=== PATIENT | female | born 1975 | race Caucasian/White ===

== ENCOUNTER 2016-09-05 12:18 | Emergency (ER) | payer BC ==
[~2016-09-05] VITALS: Ht 175.3 cm; Wt 65.7 kg
[~2016-09-05 12:18] MED LIST: ALPR0.25 PO; ASPCH81X PO; ESCI1TAB10 PO; VAREPAK PO
[2016-09-05 12:20] VITALS: TEMP 36.8; Ht 175.3 cm; Wt 65.7 kg
[2016-09-05] MEDS ORDERED: LIDOCAINE HCL 2% VISC SOLN 20 ML UDC PO STA (13:06)
[2016-09-05] MEDS ORDERED: ALUMINUM/MAGNESIUM SUSP 30 ML UDC PO STA (13:06)
[2016-09-05] MEDS ORDERED: ASPIRIN 81 MG CHEW PO STA (13:12)
[2016-09-05 13:16] LABS: BASO % 0.4 %; BASO ABS # 0.03 K/uL (0-0.2); COMPLETE YES; EOS % 3.5 %; HEMATOCRIT 36.8 % (37-47); IG% 0.1 %; LYMPH % 24.3 %; LYMPH ABS # 1.95 K/uL (1.2-3.4); MEAN CORPUSCULAR HEMOGLOBIN 29.2 pg (25-34); MEAN PLATELET VOLUME 10.1 fL (7.4-10.4); MONO % 8.2 %; NEUT % 63.5 %; PLATELET COUNT 306 K/uL (130-400); RED BLOOD COUNT 4.28 M/uL (4.2-5.4); WHITE BLOOD COUNT 8.02 K/uL (4.8-10.8)
[2016-09-05 13:29] LABS: BUN/CREATININE RATIO 14.8 (10-20); CALCIUM 8.5 mg/dl (8.5-10.1); CREATININE 0.75 mg/dl (0.60-1.20); MAGNESIUM 2.2 mg/dl (1.8-2.4); POTASSIUM 3.5 mmol/L (3.5-5.1)
[2016-09-05 13:34] LABS: CKMB/CK RATIO 1.1 (0-3.0)
--- NOTE | 2016-09-05 13:41 | DIAGNOSTIC IMAGING REPORT ---
CHEST ONE VIEW PORTABLE CLINICAL HISTORY: CP dyspnea COMPARISON STUDY: 02/19/2015 FINDINGS: The bones soft tissues and hemidiaphragms are normal. The cardiomediastinal silhouette is normal. The lungs are clear. The pulmonary vasculature is normal. Slight interstitial prominence in both lung bases suggesting mild bronchitis. IMPRESSION: Mild interstitial basilar bronchitis. No focal infiltrate. The above report was generated using voice recognition software. It may contain grammatical, syntax or spelling errors. Electronically signed by: Darren Viramontes M.D. 09/05/2016 1:40 PM Dictated Date/Time: 09/05/2016 1:39 PM
--- NOTE | 2016-09-05 14:01 | EMERGENCY ROOM VISIT NOTE ---
History Report prepared by Geoffrey: Nicky Jj Under the Supervision of: Dr. Charisse Hoffmann M.D. First contact with patient: 12:32 Chief Complaint: CARDIAC ASSESSMENT Stated Complaint: HEAVY CHEST Nursing Triage Summary: Pt reports midsternal chest pressure that is also between shoulder blades sx x2 weeks but worse in the past 2 days History of Present Illness The patient is a 40 year old female who presents to the Emergency Room for a cardiac assessment of symptoms that started 3 weeks ago. The pain is worse when she lies down but it does seem to be affected with exertion. The patient states that she is experiencing constant chest heaviness that has steadily worsened over the last couple of days. She states that it feels like "something is sitting on her chest." The patient denies any pain with pressing on her chest and any pain with moving her arms. The patient is attempting to stop smoking but she had a few cigarettes today. She states that smoking cigarettes seems to make the pressure worse. The patient is on Chantix which she started 6 months ago. The patient denies any recent trips as well as lower extremity edema. The patient adds that she has a history of RA but since she has cut bread out of her diet she has not experienced any symptoms from it. The patient did not take any aspirin today. Source of History: patient Onset: 3 weeks ago Position: chest Quality: other (cardiac assessment) Timing: constant Modifying Factors (Worsening): other (lying down, smoking cigarettes) Associated Symptoms: + chest pain (heaviness) Note: no lower extremity edema Review of Systems See HPI for pertinent positives & negatives. A total of 10 systems reviewed and were otherwise negative. Past Medical & Surgical Medical Problems: (1) Prev Delivry W/ Or W/O Ment Antepart Cond (2) Sprain Of Neck Family History Diabetes mellitus FH: heart disease Hypertension Seizures Social History Smoking Status: Current Every Day Smoker Alcohol Use: occasionally Marital Status: Housing Status: lives with family Occupation Status: employed Current/Historical Medications Scheduled Omeprazole (Prilosec), 20 MG PO DAILY Varenicline Tartrate (Chantix Continuing Month), 1 MG PO DAILY Scheduled PRN Hydroxyzine HCl (Hydroxyzine HCl), 25-50 MG PO DAILY PRN for Anxiety Allergies Coded Allergies: Aloe (Verified Allergy, Mild, RASH, 12/23/10) Physical Exam Vital Signs Date Time Temp Pulse Resp B/P (MAP) Pulse Ox O2 Delivery O2 Flow Rate FiO2 09/05/16 15:10 71 16 104/61 99 09/05/16 13:40 69 15 114/73 100 Room Air 09/05/16 12:39 93 09/05/16 12:20 36.8 94 18 137/98 99 Room Air Physical Exam Vital signs reviewed. General: Anxious-appearing female, in no significant distress. HEENT: No scleral icterus, PERRLA, neck supple. Atraumatic. Cardiovascular: Regular rate and rhythm, no extra sounds. Pulmonary: Clear to auscultation bilaterally, normal work of breathing. Abdomen: Soft, nontender, nondistended, positive bowel sounds. Musculoskeletal: Atraumatic, no peripheral edema. Neurologic: Patient awake alert and oriented x 3, full strength in all 4 extremities. Cranial nerves 2 through 12 grossly intact. Skin: Warm, dry, no rash Medical Decision & Procedures ER Provider Diagnostic Interpretation: Radiology results as stated below per my review and radiologist interpretation: CHEST ONE VIEW PORTABLE FINDINGS: The bones soft tissues and hemidiaphragms are normal. The cardiomediastinal silhouette is normal. The lungs are clear. The pulmonary vasculature is normal. Slight interstitial prominence in both lung bases suggesting mild bronchitis. IMPRESSION: Mild interstitial basilar bronchitis. No focal infiltrate. The above report was generated using voice recognition software. It may contain grammatical, syntax or spelling errors. Electronically signed by: Darren Viramontes M.D. 09/05/2016 1:40 PM Dictated Date/Time: 09/05/2016 1:39 PM Laboratory Results 09/05/16 12:30 Red Blood Count 4.28, Mean Corpuscular Volume 86.0, Mean Corpuscular Hemoglobin 29.2, Mean Corpuscular Hemoglobin Concent 34.0, Mean Platelet Volume 10.1, Neutrophils (%) (Auto) 63.5, Lymphocytes (%) (Auto) 24.3, Monocytes (%) (Auto) 8.2, Eosinophils (%) (Auto) 3.5, Basophils (%) (Auto) 0.4, Neutrophils # (Auto) 5.09, Lymphocytes # (Auto) 1.95, Monocytes # (Auto) 0.66, Eosinophils # (Auto) 0.28, Basophils # (Auto) 0.03 09/05/16 12:30 Test 09/05/16 12:30 09/05/16 14:17 White Blood Count 8.02 K/uL (4.8-10.8) Red Blood Count 4.28 M/uL (4.2-5.4) Hemoglobin 12.5 g/dL (12.0-16.0) Hematocrit 36.8 % (37-47) Mean Corpuscular Volume 86.0 fL (80-100) Mean Corpuscular Hemoglobin 29.2 pg (25-34) Mean Corpuscular Hemoglobin Concent 34.0 g/dl (32-36) Platelet Count 306 K/uL (130-400) Mean Platelet Volume 10.1 fL (7.4-10.4) Neutrophils (%) (Auto) 63.5 % Lymphocytes (%) (Auto) 24.3 % Monocytes (%) (Auto) 8.2 % Eosinophils (%) (Auto) 3.5 % Basophils (%) (Auto) 0.4 % Neutrophils # (Auto) 5.09 K/uL (1.4-6.5) Lymphocytes # (Auto) 1.95 K/uL (1.2-3.4) Monocytes # (Auto) 0.66 K/uL (0.11-0.59) Eosinophils # (Auto) 0.28 K/uL (0-0.5) Basophils # (Auto) 0.03 K/uL (0-0.2) RDW Standard Deviation 41.9 fL (36.4-46.3) RDW Coefficient of Variation 13.2 % (11.5-14.5) Immature Granulocyte % (Auto) 0.1 % Immature Granulocyte # (Auto) 0.01 K/uL (0.00-0.02) Anion Gap 9.0 mmol/L (3-11) Est Creatinine Clear Calc Drug Dose 103.4 ml/min Estimated GFR () 115.6 Estimated GFR (Non- 99.7 BUN/Creatinine Ratio 14.8 (10-20) Calcium Level 8.5 mg/dl (8.5-10.1) Magnesium Level 2.2 mg/dl (1.8-2.4) Total Bilirubin 0.4 mg/dl (0.2-1) Direct Bilirubin 0.1 mg/dl (0-0.2) Aspartate Amino Transf (AST/SGOT) 18 U/L (15-37) Alanine Aminotransferase (ALT/SGPT) 27 U/L (12-78) Alkaline Phosphatase 58 U/L (45-117) Total Creatine Kinase 120 U/L (26-192) Creatine Kinase MB 1.3 ng/ml (0.5-3.6) Creatine Kinase MB Ratio 1.1 (0-3.0) Total Protein 7.3 gm/dl (6.4-8.2) Albumin 3.7 gm/dl (3.4-5.0) Bedside D-Dimer 214 ng/mlFEU (0-450) Bedside Troponin I < 0.030 ng/ml (0-0.045) Laboratory results per my review. Medications Administered Medications (Trade) Dose Ordered Sig/Tracie Route Start Time Stop Time Status Last Admin Dose Admin Lidocaine HCl (Viscous Lidocaine 2% Soln) 10 ml NOW STAT PO 09/05/16 13:06 09/05/16 13:09 DC 09/05/16 13:22 10 ML Al Hydroxide/Mg Hydroxide (Maalox Susp) 30 ml NOW STAT PO 09/05/16 13:06 09/05/16 13:09 DC 09/05/16 13:22 30 ML Aspirin (Aspirin Chew) 324 mg NOW STAT PO 09/05/16 13:12 09/05/16 13:14 DC 09/05/16 13:21 324 MG Albuterol (Ventolin Hfa Inhaler) 2 puffs NOW ONCE INH 09/05/16 14:45 09/05/16 14:46 DC 09/05/16 15:04 2 PUFFS ECG Indication: chest pain Rate (beats per minute): 84 Rhythm: normal sinus Findings: no acute ischemic change, no ectopy ED Course 1259: Past medical records reviewed. The patient was evaluated in room B5. A complete history and physical examination was performed. 1306: Ordered Maalox Susp 30 ml PO, Lidocaine HCl 10 ml PO 1312: Ordered Aspirin 324 mg PO 1415: I reassessed the patient. She is resting comfortably. We are waiting on the results of her d-dimer and troponin. 1442: Upon reevaluation, the patient appeared to have improvement of her symptoms. I discussed findings with her. She verbalized agreement of the treatment plan. She was discharged home. Medical Decision Differential diagnoses includes acute coronary syndrome, pulmonary embolus, aortic dissection, musculoskeletal pain, pneumonia, pleural effusion, pneumothorax, gastritis, peptic ulcer disease. Medication Reconciliation: I attest that I have personally reviewed the patient' s current medication list. Blood Pressure Screening: Patient was found to have normal blood pressure on screening and does not require follow-up. This patient was evaluated and appeared to be in no significant distress. Physical examination is fairly unrevealing. EKG reveals no evidence of acute ischemia. Laboratory work reveals a normal d-dimer and troponin. I suspect the patient is suffering from a gastritis or GERD. She was given a GI cocktail with some improvement. She complains of a difficulty in obtaining air however she is oxygenating well and has a normal respiratory rate. Patient was given an albuterol inhaler and asked to use 2 puffs every 4 hours as needed. She will continue with her efforts at smoking cessation. The patient will follow- up with her primary care physician this week and return to the ER for worsening of symptoms or any medical concerns. Impression Primary Impression: GERD (gastroesophageal reflux disease) Additional Impression: Reactive airway disease Scribe Attestation The scribe's documentation has been prepared under my direction and personally reviewed by me in its entirety. I confirm that the note above accurately reflects all work, treatment, procedures, and medical decision making performed by me. Departure Information Dispostion Home / Self-Care Prescriptions Omeprazole (PRILOSEC) 20 Mg Capcr 20 MG PO DAILY, #30 CAP Prov: Charisse Hoffmann M.D. 09/05/16 Referrals Kenisha Zepeda DO (PCP) Forms IMPORTANT VISIT INFORMATION Patient Instructions GERD, My [facility] Additional Instructions Diagnosis: GERD, reactive airway disease Albuterol 2 puffs every 4 hours as needed for cough, wheeze. Prilosec 20 mg daily for 4 weeks. Pepcid 20 mg twice daily as needed. Drink plenty of fluids. Avoid alcohol, coffee, soda, greasy and spicy foods. Follow up with your doctor this week for reevaluation. Return to the ED for worsening of symptoms or any medical concerns. Problem Qualifiers Primary Impression: GERD (gastroesophageal reflux disease) Esophagitis presence: esophagitis presence not specified Qualified Codes: K21.9 - Gastro-esophageal reflux disease without esophagitis Additional Impression: Reactive airway disease Asthma severity: mild persistent Asthma complication type: uncomplicated Qualified Codes: J45.30 - Mild persistent asthma, uncomplicated
[2016-09-05] MEDS ORDERED: VARE1PAK10 PO (14:19)
[2016-09-05] MEDS ORDERED: ATR25 PO (14:19)
[2016-09-05 14:37] LABS: POINT OF CARE TROPONIN I < 0.030 ng/ml (0-0.045)
[2016-09-05] MEDS ORDERED: PRLSR20 PO (14:42)
[2016-09-05] MEDS ORDERED: ALBUTEROL HFA 8 GM INHALER INH ONE (14:45)
[2016-09-05 15:10] VITALS: BP 104/61; PULSE 71; O2SAT 99
== END 2016-09-05 15:09 | disposition home or self-care (01) ==
LOC: C.EDB 12:19
DX: K21.9 Gastro-esophageal reflux disease without esophagitis (principal); J45.30 Mild persistent asthma, uncomplicated; Z83.3 Family history of diabetes mellitus; Z82.49 Family history of ischemic heart disease and other diseases of the circulatory system; Z82.0 Family history of epilepsy and other diseases of the nervous system; F17.200 Nicotine dependence, unspecified, uncomplicated

== ENCOUNTER → 2016-11-03 | Outpatient (CLI) | payer BC ==
[~2016-11-03] MED LIST changes: -ALPR0.25 PO; -ASPCH81X PO; +ATR25 PO; -ESCI1TAB10 PO; +PRLSR20 PO; +VARE1PAK10 PO; -VAREPAK PO
--- NOTE | 2016-11-03 14:19 | MAMMOGRAPHY REPORT ---
BILATERAL DIGITAL DIAGNOSTIC MAMMOGRAM TOMOSYNTHESIS WITH CAD AND TARGETED LEFT ULTRASOUND: 11/03/2016 CLINICAL HISTORY: The patient reports left inferior breast pain for a few months. She also reports m ild diffuse left breast fullness. She denies any palpable lumps, skin changes, or other complaints. TECHNIQUE: Breast tomosynthesis in addition to standard 2D mammography was performed. Current study was also evaluated with a Computer Aided Detection (CAD) system. Bilateral CC and MLO 2-D and tomosy nthesis images were obtained. COMPARISON: Prior outside mammograms dated 12/30/2015 from [facility]. BREAST COMPOSITION: The tissue of both breasts is heterogeneously dense, which may obscure small mas ses. FINDINGS: There are no suspicious masses, calcifications, or areas of architectural distortion noted in either breast. There has been no significant interval change compared to prior exams. Targeted ultrasound was performed of the area of pain pointed out by the patient in the left lower ou ter quadrant. Sonographically normal tissue is seen in this region, without evidence of a mass or ot her suspicious sonographic abnormality. IMPRESSION: ACR BI-RADS CATEGORY 1: NEGATIVE, TARGETED ULTRASOUND ACR BI-RADS CATEGORY 1: NEGATIVE No suspicious mammographic or sonographic abnormality to explain left breast pain. There is no mammog raphic or targeted sonographic evidence of malignancy. Recommend clinical follow-up, and recommend r outine bilateral screening mammograms in one year. The patient has been verbally notified of the results. Approximately 10% of breast cancers are not detected with mammography. A negative mammographic report should not delay biopsy if a clinically suggestive mass is present. Stacy Wilkes M.D. ah/:11/03/2016 10:26:18 Sex Worker Or Escort: Kristin DIXON(R)(M), [facility] letter sent: Normal 1/2 BI-RADS Code: ACR BI-RADS Category 1: Negative Ultrasound BI-RADS: ACR BI-RADS Category 1: Negative
== END | disposition home or self-care (01) ==
LOC: C.MAMM 09:58
PROVIDERS: ATTEND Family Medicine
DX: N64.4 Mastodynia (principal)

== ENCOUNTER → 2016-11-09 | Outpatient (CLI) | payer BC ==
--- NOTE | 2016-11-09 09:30 | DIAGNOSTIC IMAGING REPORT ---
RIGHT FOOT MIN 3 VIEWS ROUTINE CLINICAL HISTORY: 41 years-old Female presenting with iritis, polyarthralgia. TECHNIQUE: Frontal, oblique, and lateral views of the right foot were obtained. COMPARISON: None. FINDINGS: Degenerative changes with joint space loss, osteophytosis and subchondral sclerosis noted at the first metatarsophalangeal joint. No other degenerative change. No acute fracture or malalignment. Accessory navicular noted. No soft tissue swelling. IMPRESSION: Degenerative changes of the first metatarsophalangeal joint characteristic of osteoarthritis. Electronically signed by: Michael Fraser M.D. 11/09/2016 9:29 AM Dictated Date/Time: 11/09/2016 9:27 AM
--- NOTE | 2016-11-09 09:34 | DIAGNOSTIC IMAGING REPORT ---
RIGHT KNEE 1 OR 2 VIEWS ROUTINE CLINICAL HISTORY: H20.9 GsmkezA13.50 [id number] Right pain COMPARISON: None. DISCUSSION: The bones and joint spaces appear intact. There is no evidence of fracture, dislocation or bony disease. There is no evidence for soft tissue swelling. IMPRESSION: Negative study. The above report was generated using voice recognition software. It may contain grammatical, syntax or spelling errors. Electronically signed by: Darren Viramontes M.D. 11/09/2016 9:33 AM Dictated Date/Time: 11/09/2016 9:33 AM
--- NOTE | 2016-11-09 09:34 | DIAGNOSTIC IMAGING REPORT ---
LEFT KNEE 1 OR 2 VIEWS ROUTINE CLINICAL HISTORY: H20.9 ZlfrbcQ74.50 [id number] pain. COMPARISON: None. DISCUSSION: The bones and joint spaces appear intact. There is no evidence of fracture, dislocation or bony disease. There is no evidence for soft tissue swelling. IMPRESSION: Negative study. The above report was generated using voice recognition software. It may contain grammatical, syntax or spelling errors. Electronically signed by: Darren Viramontes M.D. 11/09/2016 9:33 AM Dictated Date/Time: 11/09/2016 9:32 AM
--- NOTE | 2016-11-09 09:35 | DIAGNOSTIC IMAGING REPORT ---
LEFT HAND MIN 3 VIEWS ROUTINE CLINICAL HISTORY: H20.9 NfoutoT80.50 [id number] pain COMPARISON: None. DISCUSSION: The bones and joint spaces appear intact. There is no evidence of fracture, dislocation or bony disease. There is no evidence for soft tissue swelling. IMPRESSION: Negative study. The above report was generated using voice recognition software. It may contain grammatical, syntax or spelling errors. Electronically signed by: Darren Viramontes M.D. 11/09/2016 9:34 AM Dictated Date/Time: 11/09/2016 9:33 AM
--- NOTE | 2016-11-09 09:36 | DIAGNOSTIC IMAGING REPORT ---
RIGHT HAND MIN 3 VIEWS ROUTINE CLINICAL HISTORY: H20.9 PdialtS51.50 [id number] Right pain COMPARISON: None. DISCUSSION: The bones and joint spaces appear intact. There is no evidence of fracture, dislocation or bony disease. There is no evidence for soft tissue swelling. IMPRESSION: Negative study. The above report was generated using voice recognition software. It may contain grammatical, syntax or spelling errors. Electronically signed by: Darren Viramontes M.D. 11/09/2016 9:35 AM Dictated Date/Time: 11/09/2016 9:34 AM
[2016-11-09 10:29] LABS: RHEUMATOID FACTOR < 10.0 U/mL (0-15); TOTAL IRON BINDING CAPACITY 420 mcg/dl (250-450); URIC ACID 4.1 mg/dl (2.6-7.2)
[2016-11-14 10:17] LABS: ANTI-CENTROMERE AB <1.0 NEG AI (<1.0 NEG); ANTI-SS-A <1.0 NEG AI (<1.0 NEG); ANTI-SS-B <1.0 NEG AI (<1.0 NEG); DNA ds CRITHIDIA NEGATIVE (NEGATIVE); PARVOVIRUS IgG INDEX 0.3 (<0.9); PARVOVIRUS IgM INDEX 0.2 (<0.9); Sm Antibody <1.0 NEG AI (<1.0 NEG)
== END | disposition home or self-care (01) ==
LOC: C.RAD1850 08:52
PROVIDERS: ATTEND Internal Medicine Rheumatology
DX: H20.9 Unspecified iridocyclitis (principal); M25.50 Pain in unspecified joint; M10.9 Gout, unspecified; M19.071 Primary osteoarthritis, right ankle and foot

== ENCOUNTER 2023-08-11 07:42 | Observation (INO) ==
--- NOTE | 2023-08-11 08:31 | Emergency Department Note ---
Impression & Plan Diverticulitis ED Provider Note NAME: JAMES MASTERS AGE: 47 SEX: F : 1975 ARRIVES VIA: Walk-In INFORMANT: Patient, ED PROVIDER(S): Annette Cuevas MD CHIEF COMPLAINT: Diverticulitis HPI: This is a 47-year-old female presenting for left lower abdominal pain. patient notes she has a loss and history of diverticulitis over the past 10 years. She has never had antibiotic failure with or antibiotic previously until this round. She notes that she has completed 3 rounds of oral antibiotics including 2 rounds of amoxicillin and then Cipro/Flagyl recently. She notes she last finished her course about 2 days ago without the resolution of pain and not worsening pain. There is mild similar to previous episodes of diverticulitis. She had diagnosed diverticulitis about 10 to 14 days ago at outside hospital. She reports no vomiting, diarrhea, slight nausea as noted above. No significant bloody stools. ROS: See above HPI for pertinent positives & negatives. A total of 10 systems reviewed and were otherwise negative. PHYSICAL EXAMINATION: General: resting comfortably in no acute distress Head: Normocephalic and atraumatic Eyes: Normal inspection, extraocular muscles intact Ear, nose, throat: Normal external exam Neck: Normal range of motion Respiratory: lungs clear to auscultation bilaterally Cardiovascular: Regular rate/rhythm, no murmur GI: soft, nontender, no guarding or rebound Extremities: nontender, moves all extremities Neuro: The patient awake and alert, appropriately conversive, no focal deficits, symmetric faces Skin: Warm, dry, and intact MEDICAL DECISION MAKING: This is a pleasant 47-year-old female sent in for left lower abdominal pain. Patient is longstanding history of diverticulitis. Will do CT to assess for any clinical change in her diverticulitis or any new pathology. Will do basic blood work as well. Will give specimen coverage -CT imaging does show signs of acute diverticulitis. -Blood work is reviewed showing no significant abnormalities Differential diagnosis: Diverticulitis, SBO, pancreatitis, appendicitis ER treatment provided: See below Diagnostics interpreted by me: ECG: None Cardiac Monitoring: An order was placed for continuous cardiac monitoring. The monitor shows a rate of 73 with sinus rhythm. Laboratory studies: As stated above and show below. Imaging studies: See below. Past Med/Surg History Problem List (Updated 08/12/23 @ 14:36 by Annette Cuevas MD) Diverticulitis (Acute) Diverticulitis Encounter for pre-operative examination GERD (gastroesophageal reflux disease) (Acute) Headache (Acute) Hyperventilation (Acute) Hyperventilation syndrome (Acute) Hyperventilation syndrome (Acute) Hypokalemia (Acute) Palpitations (Acute) Reactive airway disease (Acute) Medical History (Updated 08/12/23 @ 14:36 by Annette Cuevas MD) Osteoarthritis Gout Anxiety Migraine Reactive airway disease Surgical History H/O right knee surgery BENIGN TUMOR REMOVED History of section X2 History of dilatation and curettage History of tooth extraction WISDOM TEETH Family History Brother Family history of diabetes mellitus Grandmother Family history of diabetes mellitus MATERNAL AND PATERNAL Social History Smoking Status: Current every day smoker Tobacco Type: E-cigarettes / Vaping Cigarettes Per Day: 10 A DAY; Second Hand Exposure: Yes; Do You Dip or Chew Tobacco: No; Hx Alcohol Use: Yes Alcohol type: hard liquor Hx Substance Use: No Preferred Language: Slovenian Communication Ability: Effective Test Development Engineer Required: No Beliefs That Will Affect Care: None Current Living Situation: Spouse Current Living Situation Comment: Lives at home with and 2 children Feels Safe at Home: Yes Assistive Devices: Contacts and Glasses Allergies Allergies Allergy/AdvReac Type Severity Reaction Status Date / Time aloe Allergy Mild RASH Verified 03/01/23 15:20 Home Meds Home Medications Medication Instructions Recorded Confirmed multivitamin 1 tab PO QAM 11/06/17 08/11/23 ibuprofen 200 mg tablet (Advil) 400 mg PO Q6H PRN Pain 03/01/23 08/11/23 melatonin 3 mg tablet 5 mg PO HS PRN Sleep 03/01/23 08/11/23 Tylenol 1 - 2 tab PO UD PRN Pain 08/11/23 08/11/23 alprazolam 0.5 mg tablet 0.5 mg PO UD PRN travel 08/11/23 08/11/23 aspirin 1 - 2 tab PO UD PRN Pain 08/11/23 08/11/23 Results & Data (ED) Vital Signs Vital Signs - 24 hr 08/11/23 07:48 Temperature 36.5 C Temperature Source Temporal Artery Scan Pulse Rate 86 Respiratory Rate 18 Respiratory Effort / Characteristics Non-Labored Spontaneous Respiratory Depth Normal Blood Pressure 117/82 Blood Pressure Mean 93 Pulse Oximetry 98 Oxygen Delivery Method Room Air Sepsis Recent Fever Within 48 Hours No Sepsis New/Unexplained Change in Mental Status No Sepsis Action Taken by Nursing No Action Required Laboratory Data 08/12/23 07:43 08/12/23 07:43 Lab Results 08/11/23 08/11/23 Range/Units 08:15 09:19 WBC 6.54 (4.8-10.8) K/ul RBC 4.52 (4.20-5.40) M/uL Hgb 12.8 (12.0-16.0) g/dl Hct 38.8 (37.0-47.0) % MCV 85.8 (80.0-100.0) fL MCH 28.3 (25.0-34.0) pg MCHC 33.0 (32.0-36.0) g/dL RDW Std Deviation 40.1 (36.4-46.3) fL RDW Coeff of Daniela 12.8 (11.5-14.5) % Plt Count 277 (130-400) K/uL MPV 10.5 (9.4-12.4) fL Immature Gran % (Auto) 0.2 % Neut % (Auto) 64.3 % Lymph % (Auto) 25.1 % [place] % (Auto) 7.0 % Eos % (Auto) 2.8 % Baso % (Auto) 0.6 % Neut # (Auto) 4.21 (1.40-6.50) K/uL Lymph # (Auto) 1.64 (1.20-3.40) K/uL [place] # (Auto) 0.46 (0.11-0.59) K/uL Eos # (Auto) 0.18 (0.00-0.50) K/uL Baso # (Auto) 0.04 (0.00-0.20) K/uL Immature Gran # (Auto) 0.01 (0.01-0.20) K/uL Platelet Estimate Normal (Normal) Sodium TNP 135 L Potassium TNP 3.7 Chloride 105 (98-107) mmol/L Carbon Dioxide 24 (21-32) mmol/L Anion Gap TNP BUN 12 (6-23) mg/dl Creatinine 0.64 (0.6-1.2) mg/dl Est Cr Clr Drug Dosing 109.6 ml/min Est GFR ( Amer) 123.2 ml/min Est GFR (Non-Af Amer) 106.3 ml/min BUN/Creatinine Ratio 18.8 (10-20) Glucose 99 (70-99(Fasting)) mg/dl Calcium 9.3 (8.6-10.3) mg/dl Total Bilirubin 0.3 (0.2-1.0) mg/dl Direct Bilirubin TNP 0.1 AST TNP 17 ALT 21 (7-52) U/L Alkaline Phosphatase 48 (34-104) U/L Total Protein 7.2 (6.0-8.3) gm/dl Albumin 4.2 (3.4-5.0) gm/dl Lipase 32 (11-82) U/L Administered Medications Fluticasone Propionate (Fluticasone Propionate Na Spr 16 Gm Btl) 1 sprays NA DAILY BART Stop: 09/10/23 11:44 Last Admin: 08/12/23 08:25 Dose: 1 sprays Documented By: Admin: 08/11/23 13:00 Dose: 1 sprays Documented By: COLLEEN Piperacillin Sod/Tazobactam (Sod 4.5 gm/ Dextrose) 100 mls @ 25 mls/hr IV Q8H BART; Protocol Stop: 08/21/23 15:59 Last Infusion: 08/12/23 12:20 Dose: Infused Documented By: Admin: 08/12/23 08:20 Dose: 25 mls/hr Documented By: Infusion: 08/12/23 04:05 Dose: Infused Documented By: Admin: 08/12/23 00:02 Dose: 25 mls/hr Documented By: Infusion: 08/11/23 21:35 Dose: Infused Documented By: Admin: 08/11/23 17:10 Dose: 25 mls/hr Documented By: YONNY Lactobacillus Acidophilus (Advanced Probiotic 625 Mg Capsule) 1,250 mg PO DAILY BART Stop: 09/10/23 11:44 Last Admin: 08/12/23 08:26 Dose: 1,250 mg Documented By: Admin: 08/11/23 13:00 Dose: 1,250 mg Documented By: COLLEEN Melatonin (Melatonin 3 Mg Tab) 3 mg PO HS PRN PRN Reason: Sleep Stop: 09/10/23 20:04 Last Admin: 08/11/23 21:35 Dose: 3 mg Documented By: PRUDENCIO Discontinued Medications Piperacillin Sod/Tazobactam Sod (Zosyn) 4.5 gm in 100 mls @ 200 mls/hr IV NOW ONE Stop: 08/11/23 10:32 Last Infusion: 08/11/23 11:10 Dose: Infused Documented By: Admin: 08/11/23 10:40 Dose: 200 mls/hr Documented By: COLLEEN Lactated Ringer's (Lr) 1,000 mls @ 100 mls/hr IV .Q10H BART Stop: 08/12/23 09:33 Last Infusion: 08/12/23 10:01 Dose: Infused Documented By: Admin: 08/12/23 00:01 Dose: 100 mls/hr Documented By: Infusion: 08/12/23 00:01 Dose: Infused Documented By: Admin: 08/11/23 14:17 Dose: 100 mls/hr Documented By: COLLEEN Ioversol (Optiray 320 100ml) 94 ml IV ONCE ONE Stop: 08/11/23 09:04 Last Admin: 08/11/23 09:04 Dose: 94 ml Documented By: EDK Discharge Plan Visit Data Chief Complaint: Abdominal Pain Stated Complaint: abd pain ED Provider: Annette Cuevas Discharge Problem: Diverticulitis Patient Disposition: Admitted As Inpatient Discharge Instructions Interventions: ED Discharge Assessment Last Done: 08/11/23 13:35
[2023-08-11 08:55] LABS: Alanine Aminotransferase 21 U/L (7-52); Albumin Level 4.2 gm/dl (3.4-5.0); Alkaline Phosphatase 48 U/L (34-104); BUN Creatinine Ratio 18.8 (10-20); Bilirubin,Total 0.3 mg/dl (0.2-1.0); Blood Urea Nitrogen 12 mg/dl (6-23); Calcium 9.3 mg/dl (8.6-10.3); Carbon Dioxide 24 mmol/L (21-32); Chloride 105 mmol/L (98-107); Creatinine Clr Calc Pharmacy 109.6 ml/min; Est GFR (African American) 123.2 ml/min; Est GFR (Non-African American) 106.3 ml/min; Glucose 99 mg/dl (70-99(Fasting)); Lipase 32 U/L (11-82); Total Protein 7.2 gm/dl (6.0-8.3)
[2023-08-11] MEDS: OPTIRAY 320 100ml IV ONE (09:04)
[2023-08-11 09:18] LABS: Hematocrit (blood only) 38.8 % (37.0-47.0); Hemoglobin 12.8 g/dl (12.0-16.0); Mean Corpuscular Hemoglobin 28.3 pg (25.0-34.0); Mean Corpuscular Volume 85.8 fL (80.0-100.0); Mean Platelet Volume 10.5 fL (9.4-12.4); Platelet Count 277 K/uL (130-400); RDW Coefficient of Variation 12.8 % (11.5-14.5); RDW Standard Deviation 40.1 fL (36.4-46.3); Red Blood Count 4.52 M/uL (4.20-5.40); White Blood Count 6.54 K/ul (4.8-10.8)
[2023-08-11 09:20] LABS: Basophils # (auto) 0.04 K/uL (0.00-0.20); Basophils % (auto) 0.6 %; Eosinophils # (auto) 0.18 K/uL (0.00-0.50); Eosinophils % (auto) 2.8 %; Immature Granulocytes # (auto) 0.01 K/uL (0.01-0.20); Immature Granulocytes % (auto) 0.2 %; Lymphocytes # (auto) 1.64 K/uL (1.20-3.40); Lymphocytes % (auto) 25.1 %; Monocytes # (auto) 0.46 K/uL (0.11-0.59); Neutrophils # (auto) 4.21 K/uL (1.40-6.50); Neutrophils % (auto) 64.3 %; Platelet Estimate Normal (Normal)
--- NOTE | 2023-08-11 09:43 | CT Scan Report ---
CT SCAN OF THE ABDOMEN AND PELVIS WITH IV CONTRAST CLINICAL HISTORY: Lower abdominal pain. COMPARISON STUDY: Abdominal CT dated 09/09/2015. TECHNIQUE: Following the IV administration of 94 cc of Optiray 320, CT scan of the abdomen and pelvi s is performed from the lung bases to the proximal femora. Images are reviewed in the axial, sagittal , and coronal planes. IV contrast was administered without complication. A dose lowering technique wa s utilized adhering to the principles of ALARA. CT DOSE: 800.39 mGy.cm FINDINGS: Lung bases: The heart is normal in size and without pericardial effusion. There is bibasilar scarring /atelectasis. A calcified granuloma is seen at the left lung base. Mucous plugging/debris is seen wit hin the right lower lobe airways. No airspace consolidation typical for pneumonia or pleural effusion is identified. Liver: The contrast-enhanced liver is normal in size, contour, and attenuation. Fatty infiltration is seen adjacent to the falciform ligament. There is no intrahepatic biliary ductal dilatation. The hep atic veins and portal veins are patent. Gallbladder: Unremarkable. Spleen: Normal in size and attenuation. Pancreas: Unremarkable. Adrenal glands: Unremarkable. Kidneys: The contrast enhanced kidneys are normal in size and without hydronephrosis. The kidneys enh ance symmetrically. Abdominal vasculature: The abdominal aorta is normal in course and caliber noting mild atheroscleroti c calcification. Bowel: There is moderate colonic diverticulosis. There is wall thickening with pericolonic inflammati on seen involving the distal descending/proximal sigmoid colon consistent with mild acute diverticuli tis. No fluid collection is seen to suggest abscess. There is no bowel obstruction. Mild fecal retent ion is noted throughout the colon. A duodenal diverticulum is noted. The appendix is well-visualized and normal. Peritoneum: There is no intraperitoneal free air or abdominal ascites. There is a fat-containing umbi lical hernia. Lymphadenopathy: None. Pelvic viscera: The bladder, uterus, and adnexa are normal as visualized noting bilateral ovarian fol licles. Dominant follicles measure up to 2.6 cm. Skeletal structures: No lytic or blastic lesions are seen. There are bilateral pars defects at L4 wit h minimal anterolisthesis, severe disc space narrowing, and endplate sclerosis at L4-L5. IMPRESSION: 1. Colonic diverticulosis with evidence of mild acute diverticulitis of the distal descending/proxima l sigmoid. 2. No intraperitoneal free air is identified and there is no fluid collection suggest abscess. 3. Additional findings as above. ACT 112: Negative or not required by law. Electronically signed by: Lowell Keen M.D. 08/11/2023 9:42 AM
[2023-08-11 09:54] LABS: Bilirubin Direct 0.1 mg/dl (0-0.2); Potassium 3.7 mmol/L (3.5-5.1)
--- NOTE | 2023-08-11 10:27 | History & Physical Report ---
Date of Service August 11, 2023 Assessment & Plan (1) Diverticulitis: (2) GERD (gastroesophageal reflux disease): Plan: Diverticulitis Abdominal Pain Failed abx Outpatient Course - Admit to med surg - Pt failed outpatient antibiotics, most recently finished course of oral cipro flagyl 2 days ago. She initially had improvement in pain, and then it returned and worsened with completion of antibiotics. Currently she is afebrile without leukocytosis. CT abd is reviewed and does show mild diverticulitis, no other acute findings. - Tolerating PO intake, will keep NPO for now - advance to clears possibly tomorrow - Pain tolerable, will use tylenol here, was using aspirin and tylenol prior to admission - Cont zosyn IV - Follow blood cultures x 2 - She has not seen GI previously, will consult them - Pt had last colonoscopy 2 years ago, had 2 polyps and were benign per her report - Continue LR at 100 ml/hr for 2 L. Urinary Frequency - Check UA with urine frequency- denies other symptoms, follow culture if appear s infected. Nicotine Vape Use Denies need for nicotine patch, vaping cessation encouraged at bedside DVT ppx: teds, scds Lines: PIV x 1 R arm CODE: FULL FEN/GI: NPO except sips and chips Dispo: From home, likely to remain in the hospital x 1-2 days A total of 75 minutes were spent with greater than 50% of that time face to face with the patient, personally reviewing all current laboratories, imaging studies, past medication reconciliation, outpatient chart review, and discussion with specialists to collaborate care for the patient with attending. Please see attending documentation for corrections and/or additions. History of Present Illness Chief Complaint: Abdominal Pain Primary Care Provider: Kenisha Zepeda DO This is a 47 yo F with PMHx of diverticulitis, with recent 2 recurrent bouts of diverticulitis. Last time was in April with Augmentin (pt states she took 2 courses of Augmentin ) and then again beginning of July of cipro & flagyl and had a CT scan 14days ago in [place] where she was visiting family. Now presents with worsening pain despite recently finishing antibiotic course 2 days ago. She denies nausea, vomiting, fever today. Pt admits to having a cough with post nasal drip, no sore throat, within the past week and a half. She had attributed this to khloe patton outside and thought it was due to such. Pt is moving her bowels, last was this morning, no blood, soft. No nausea, vomiting. Pt admits to vaping nicotine daily. Denies alcohol, no ilicit drug use, no marijuana use. Allergies Allergy/AdvReac Type Severity Reaction Status Date / Time aloe Allergy Mild RASH Verified 03/01/23 15:20 Home Medications Medication Instructions Recorded Confirmed Type multivitamin 1 tab PO QAM 11/06/17 08/11/23 History ibuprofen 200 mg tablet (Advil) 400 mg PO Q6H PRN Pain 03/01/23 08/11/23 History melatonin 3 mg tablet 5 mg PO HS PRN Sleep 03/01/23 08/11/23 History Tylenol 1 - 2 tab PO UD PRN Pain 08/11/23 08/11/23 History alprazolam 0.5 mg tablet 0.5 mg PO UD PRN travel 08/11/23 08/11/23 History aspirin 1 - 2 tab PO UD PRN Pain 08/11/23 08/11/23 History Past Med/Surg History Problem List (Updated 08/11/23 @ 10:32 by Priyanka Lomax PA-C) Diverticulitis Encounter for pre-operative examination GERD (gastroesophageal reflux disease) (Acute) Headache (Acute) Hyperventilation (Acute) Hyperventilation syndrome (Acute) Hyperventilation syndrome (Acute) Hypokalemia (Acute) Palpitations (Acute) Reactive airway disease (Acute) Medical History (Updated 08/11/23 @ 10:32 by Priyanka Lomax PA-C) Osteoarthritis Gout Anxiety Migraine Reactive airway disease Surgical History H/O right knee surgery BENIGN TUMOR REMOVED History of section X2 History of dilatation and curettage History of tooth extraction WISDOM TEETH Family History Brother Family history of diabetes mellitus Grandmother Family history of diabetes mellitus MATERNAL AND PATERNAL Social History Smoking Status: Former smoker Tobacco Type: Cigarettes Cigarettes Per Day: 10 A DAY; Second Hand Exposure: No; Do You Dip or Chew Tobacco: No; Hx Alcohol Use: Yes Alcohol type: hard liquor Hx Substance Use: No Preferred Language: Nepali Communication Ability: Effective Office Services Representative Required: No Beliefs That Will Affect Care: None Current Living Situation: Spouse and Family Feels Safe at Home: Yes Assistive Devices: Contacts and Glasses Review of Systems Review of Systems: Constitutional: No fever, sweats or chills Eyes: No diplopia, no worsening or blurred vision ENT: normal hearing, no trouble swallowing Respiratory: No cough, sputum, dyspnea at rest or on exertion Cardiovascular: No chest pain, tightness or palpitations Abdomen: No pain, nausea, vomiting, diarrhea or constipation, she is using stool softener daily. : increased urine frequency, Musculoskeletal: No joint pain, calf pain, swelling Neurologic: No weakness, numbness/tingling, or balance problems Psychiatric: No anxiety or depression Skin: No rash or itch Physical Exam Physical Exam: Please see attending addendum for physical exam. Results & Data Results & Data Vital Signs (Past 12 Hours) Vital Signs Temp Pulse Resp BP Pulse Ox O2 Del Method 08/11/23 07:48 36.5 C 86 18 117/82 98 Room Air Laboratory Results 08/11/23 08/11/23 09:19 08:15 WBC 6.54 RBC 4.52 Hgb 12.8 Hct 38.8 MCV 85.8 MCH 28.3 MCHC 33.0 RDW Std Deviation 40.1 RDW Coeff of Daniela 12.8 Plt Count 277 MPV 10.5 Immature Gran % (Auto) 0.2 Neut % (Auto) 64.3 Lymph % (Auto) 25.1 [place] % (Auto) 7.0 Eos % (Auto) 2.8 Baso % (Auto) 0.6 Neut # (Auto) 4.21 Lymph # (Auto) 1.64 [place] # (Auto) 0.46 Eos # (Auto) 0.18 Baso # (Auto) 0.04 Immature Gran # (Auto) 0.01 Platelet Estimate Normal Sodium 135 L TNP Potassium 3.7 TNP Chloride 105 Carbon Dioxide 24 Anion Gap TNP BUN 12 Creatinine 0.64 Est Cr Clr Drug Dosing 109.6 Est GFR ( Amer) 123.2 Est GFR (Non-Af Amer) 106.3 BUN/Creatinine Ratio 18.8 Glucose 99 Calcium 9.3 Total Bilirubin 0.3 Direct Bilirubin 0.1 TNP AST 17 TNP ALT 21 Alkaline Phosphatase 48 Total Protein 7.2 Albumin 4.2 Lipase 32 Diagnostic Findings Abdomen/Pelvis CT 08/11/23 07:53 CT SCAN OF THE ABDOMEN AND PELVIS WITH IV CONTRAST CLINICAL HISTORY: Lower abdominal pain. COMPARISON STUDY: Abdominal CT dated 09/09/2015. TECHNIQUE: Following the IV administration of 94 cc of Optiray 320, CT scan of the abdomen and pelvis is performed from the lung bases to the proximal femora. Images are reviewed in the axial, sagittal, and coronal planes. IV contrast was administered without complication. A dose lowering technique was utilized adhering to the principles of ALARA. CT DOSE: 800.39 mGy.cm FINDINGS: Lung bases: The heart is normal in size and without pericardial effusion. There is bibasilar scarring/atelectasis. A calcified granuloma is seen at the left lung base. Mucous plugging/debris is seen within the right lower lobe airways. No airspace consolidation typical for pneumonia or pleural effusion is identif ied. Liver: The contrast-enhanced liver is normal in size, contour, and attenuation. Fatty infiltration is seen adjacent to the falciform ligament. There is no intrahepatic biliary ductal dilatation. The hepatic veins and portal veins are patent. Gallbladder: Unremarkable. Spleen: Normal in size and attenuation. Pancreas: Unremarkable. Adrenal glands: Unremarkable. Kidneys: The contrast enhanced kidneys are normal in size and without hydronephrosis. The kidneys enhance symmetrically. Abdominal vasculature: The abdominal aorta is normal in course and caliber noting mild atherosclerotic calcification. Bowel: There is moderate colonic diverticulosis. There is wall thickening with pericolonic inflammation seen involving the distal descending/proximal sigmoid colon consistent with mild acute diverticulitis. No fluid collection is seen to suggest abscess. There is no bowel obstruction. Mild fecal retention is noted throughout the colon. A duodenal diverticulum is noted. The appendix is well- visualized and normal. Peritoneum: There is no intraperitoneal free air or abdominal ascites. There is a fat-containing umbilical hernia. Lymphadenopathy: None. Pelvic viscera: The bladder, uterus, and adnexa are normal as visualized noting bilateral ovarian follicles. Dominant follicles measure up to 2.6 cm. Skeletal structures: No lytic or blastic lesions are seen. There are bilateral pars defects at L4 with minimal anterolisthesis, severe disc space narrowing, and endplate sclerosis at L4-L5. IMPRESSION: 1. Colonic diverticulosis with evidence of mild acute diverticulitis of the distal descending/proximal sigmoid. 2. No intraperitoneal free air is identified and there is no fluid collection suggest abscess. 3. Additional findings as above. ACT 112: Negative or not required by law. Electronically signed by: Lowell Keen M.D. 08/11/2023 9:42 AM Code Status & VTE Plan Code Status Full code - discussed with pt at bedside Supervising Physician Co-Signing Physician Notes 47-year-old lady with PMH of recurrent diverticulitis presented with failure of outpatient therapy for diverticulitis management. Patient reports having 3 courses of antibiotics since May for her left lower abdominal pain, CT scan of the abdomen pelvis at admission shows mild diverticulitis. Patient reports abdominal pain, nausea, increased urinary frequency, no vomiting or fever or sore throat or new cough. Patient reports cough from postnasal drip. Patient denies chest pain or palpitation. No increased urinary frequency, denies pain and burning with passing urine. Will get urinalysis. Patient reports drinking lots of water. Patient denies being weak. Reports soft and a small bowel movement. Admitting labs reviewed, admitting imaging reviewed. Mild diverticulitis: Continue with Zosyn, probiotic. Consult GI.N.p.o., IV fluid.Pain management, nausea control. follow blood cultures. Urinary frequency: Send urine analysis. Pt agreeable to try Flonase for her pnd and cough. On exam: GENERAL: Alert and oriented x3. NAD, on RA. HEENT: No pallor, no icterus. Pupils equal, round and reactive to light. Oral mucosa moist. NECK: No JVD, no neck masses. HEART: S1 and S2 heard. Regular rate and rhythm. No murmur, no gallop. RESPIRATORY SYSTEM: Normal AP diameter. No accessory muscle use. No wheezing, no crackles. ABDOMEN: Soft, bowel sounds present, LLQ tender x mild, no distention. CENTRAL NERVOUS SYSTEM: No facial droop. Speech is clear. Obeys simple commands. Moves extremities. EXTREMITIES: No edema, no erythema seen. I have seen and examined the patient and have discussed the case with the provider above. I agree with the assessment and plan as stated.
[2023-08-11] MEDS: PIPERACILLIN/TAZOBACTAM 4.5 GM/100 ML BAG IV ONE (10:40)
--- OUTSIDE RECORDS SUMMARY | 2023-08-11 11:53 | External Medical Summary | Summary of Care ---
Author Name Unknown Organization [facility] Address [address] [place] [address] Phone [phone] Care Team Providers Care Ring Stamper Name Role Phone Kenisha Zepeda Primary Care Provider Reason for Visit * Reason Onset Date Comments Med Request 05/03/2023 Encounter Details Date Type Department Care Team (Late st Contact Info) Description 05/03/2023 Telephone General Surgery, [facility] [address] [place] [id number] Agustin Iglesias MD [address] [facility] [place] [address] Med Request Allergies Active Allergy Reactions Criticality Noted Date Comments Aloe Rash 05/10/2012 Prednisone 08/10/2020 Heightened anxiety. SOB and palpitations. documented as of this encounter (statuses as of 07/26/2023) Medications Medication Sig Dispensed Refills Start Date End Date Status MULTIVITAMIN/MINERALS 27-1 MG PO CAPS twice daily Active diphenhydrAMINE HCl 25 MG Oral Capsule (Benadryl) Take 1 Capsule by mouth every 6 hours as needed for Itching (allergy symptoms). Takes a few times per week Active Melatonin 3 MG Oral Tablet 3 Tablets. 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 08/20/2015 09/21/2015 documented as of this encounter (statuses as of 07/26/2023) Immunizations Name Administration Dates Next Due COVID-19 mRNA, LNP-s, No Pre serve, 2-Dose Series (Moderna) 04/17/2020,03/20/2020 COVID-19 mRNA, LNP-s, No Pre serve, 2-Dose Series (Pfizer) 01/01/2021 Hepatitis B, 20+ yrs 09/29/2014 PPD 10/06/2014,09/29/2014 Pneumococcal Conjugate Vacci ne, 20-valent ([id number]) 12/28/2021 Pneumococcal Polysaccharide PPV23 (Pneumovax) 02/24/2014 Seasonal Influenza, PF, 6 M & above, IM , (FluLaval or Fluzone) 11/18/2021,02/01/2018,12/19/2016 Seasonal Influenza, Quadriva lent, No Preserve, Mdck 11/17/2019,12/05/2018 Seasonal Influenza, Split, I IV3, With Preserve, Inj 12/27/2015,11/08/2013,02/05/2013 TDAP (age 10 and older)(Boostrix) 12/28/2021,08/2010 documented as of this encounter Social History Tobacco Use Types Packs/Day Years Used Date Smoking Tobacco: Former Cigarettes 0.3 20 2 002 - 2021 Smokeless Tobacco: Never Comments:under 10 cigs a day Alcohol Use Standard Drinks/Week Comments Yes 1.7 (1 standard drink = 0.6 oz p ure alcohol) occasional PHQ-2 Answer Date Recorded PHQ-2 Score -1 12/24/2017 Hunger Vital Sign Answer Date Recorded Within the past 12 months, y ou worried that your food would run out before you got the money to buy more. Never true 03/04/19 24 Within the past 12 months, t he food you bought just didn't last and you didn't have money to get more. Never true 03/04/2023 Sex and Gender Information Value Date Recorded Sex Assigned at Female 03/04/2023 6:14 AM EST Gender Identity Choose not to disclose 6:14 AM EST Sexual Orientation Choose not to disclose 2023 6:14 AM EST Job Start Date Occupation Industry Not on file Not on file Not on file documented as of this encounter Miscellaneous Notes * Telephone Encounter - Dariela Thompson PHARM Tech - 05/03/2023 8:50 AM EDT Pt calling to request medication for diverticulitis flare. Pt states she was told by provider to call if any issues. Please advise and submit rx if appropriate. Dariela Odonnell Work Study Student [facility] ([facility] (formerly Tele[facility]) 05/03/2023,8:50 AM documented in this encounter Plan of Treatment Scheduled Procedures Name Priority Associated Diagnoses Date/Ti me COLONOSCOPY FLEXIBLE PROXIMAL DIAGNOSTIC Recall History of colon polyps Health Maintenance Due Date Last Done Comments Lipid Panel 1975 HIV Screening 10/16/1990 HPV/Co-Test 10/16/2005 Depression Screening 05/26/2018 05/26/2017 Cologuard 10/16/2020 Fecal Occult Blood Test 10/16/2020 Sigmoidoscopy 10/16/2020 COVID-19 Vaccine ( season) 2022 01/01/2021, 04/17/2020, 03/20/2020 Influenza Vaccine (FLU shot) (Season Ended) 2023 11/18/2021, 11/17/2019, 12/05/2018, Additional history exists Cervical Cancer Screening 12/30/2023 Pap Smear 12/30/2023 12/29/2020, 04/2016 (Done elsewhere), 10/18/2011 Mammogram 03/03/2024 03/03/2023, 07/2022, 01/19/2021, Additional history exists Colonoscopy 12/22/2026 12/22/2021, 12/22/2021 Colorectal Cancer Screening 12/22/2026 DTaP,Tdap,and Td Vaccines (3 - Td or Tdap) 12/29/2031 12/28/2021, 12/27/2010 RETIRED - COLONOSCOPY-EVERY 5 YRS AGES 18-100 Discontinued 12/22/2021, 12/22/2021 Pneumococcal Vaccine: Pediatrics (0 to 5 Years) and At-Risk Patients (6 to 64 Years) Aged Out 12/28/2021, 02/24/2014 No longer eligibl e based on patient's age to complete this topic GARDASIL-HPV IMMUNIZATION SERIES Aged Out No longer eligible based on patient's age to complete this topic MENINGOCOCCAL (MENACTRA/MENVEO) Aged Out No longer eligible based on patient's age to complete this topic documented as of this encounter Medical Devices Not on filedocumented as of this encounter Care Teams Ring Stamper Relationship Specialty Start Date End Date Kenisha Zepeda DO [address] [place] [address] PCP - General Family Medicine 09/05/18 documented as of this encounter
--- OUTSIDE RECORDS SUMMARY | 2023-08-11 11:53 | External Medical Summary | Summary of Care ---
Author Name Unknown Organization [facility] Address [address] [place] [address] Phone [phone] Care Team Providers Care Solar Maintenance Technician Name Role Phone Kenisha Zepeda DO Primary Care Provider Encounter Details Date Type Department Care Team (Late st Contact Info) Description 06/05/2023 2:00 PM EDT Telemedicine Family Practice [facility] 200 [facility] [place] [address] Rosita Sanchez PA-C 200 [facility] [place] [phone] Travel advice encounter* Allergies Active Allergy Reactions Criticality Noted Date Comments Aloe Rash 05/10/2012 Prednisone 08/10/2020 Heightened anxiety. SOB and palpitations. documented as of this encounter (statuses as of 06/05/2023) Medications Medication Sig Dispensed Refills Start Date End Date Status MULTIVITAMIN/REGIONAL PROJECT MANAGER ALS 27-1 MG PO CAPS twice daily 0 Active diphenhydrAMINE HCl 25 MG Oral Capsule (Benadryl) Take 1 Capsule by mouth every 6 hours as needed for Itching (allergy symptoms). Takes a few times per week 0 Active Melatonin 3 MG Oral Tablet 3 Tablets. 0 03/01/2023 Active ALPRAZolam 0.5 MG Oral Tablet (Xanax) 1-2 tabs prior to travel 10 Tablet 0 06/05/2023 Active Meclizine HCl 25 MG Oral Tablet (Antivert) 1 Tablet. 0 03/01/2023 06/05/2023 Discontinued (Medication List Clean Up) Amoxicillin-Pot Clavulanate 875-125 MG Oral Tablet (Augmentin) Take 1 Tablet by mouth in the morning and 1 Tablet before bedtime. Do all this for 10 days. 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 09/21/2015 documented as of this encounter (statuses as of 06/05/2023) Immunizations Name Administration Dates Next Due COVID-19 mRNA, LNP-s, No Pre serve, 2-Dose Series (Moderna) 04/17/2020,03/20/2020 COVID-19 mRNA, LNP-s, No Pre serve, 2-Dose Series (Pfizer) 01/01/2021 Hepatitis B, 20+ yrs 09/29/2014 PPD 10/06/2014,09/29/2014 Pneumococcal Conjugate Vacci ne, 20-valent ([id number]) 12/28/2021 Pneumococcal Polysaccharide PPV23 (Pneumovax) 02/24/2014 Seasonal [...] on file documented as of this encounter Progress Notes * Rosita Sanchez PA-C - 06/05/2023 2:14 PM EDT Images from the original note were not included. Patient location: HOME. I was in a hospital or clinic location. After connecting through televideo,patient was verified with two unique identifiers. Patient (or authorized legal veterans service representative) was then informed that this was a Telemedicine visit and being conducted confidentially over secure lines. Methods to assure confidentiality were taken. Patient acknowledged consent and understanding of pr ivacy and security of the Telemedicine visit. The patient agreed to participate. History of Present Illness Adrienne Sanchez is a 47 year old adult that presents for No chief complaint on file. Patient is a 47 year old female who presents to discuss getting medication for flying. Will be leaving in 10 days for about a 3 hour flight to [place]. Gets panic attacks; sense of doom , dread, losing control of body. Physical Exam There were no vitals filed for this visit. General: alert, healthy, no distress, well nourished, well developed, and cooperative Head: Normocephalic, No masses, lesions, tenderness or abnormalities Eye Exam: PERRLA, extraocular movements intact, conjunctiva are pink and non- injected, sclera clear Lungs: chest symmetric with normal AP diameter, no chest deformities noted, normal respiratory rateand rhythm, diaphragmatic excursion normal I have reviewed the following results: None Assessment and Plan Travel advice encounter (Primary) Other orders - ALPRAZolam 0.5 MG Oral Tablet (Xanax); 1-2 tabs prior to travel Wrap-Up Time: I spent a total of 20-29 minutes (exact time 21 mins) on the date of service in preparation, delivery, and documentation of the care provided to Adrienne Sanchez excluding any time spent in the performance of separately billed services. Telemedicine: Patient location: HOME. I was in a hospital or clinic location. After connecting through televideo,patient was verified with two unique identifiers. Patient (or authorized legal veterans service representative) was then informed that this was a Telemedicine visit and being conducted confidentially over secure lines. Methods to assure confidentiality were taken. Patient acknowledged consent and understanding of pr ivacy and security of the Telemedicine visit. The patient agreed to participate. documented in this encounter Plan of Treatment Upcoming Encounters Date Type Department Care Team (Late st Contact Info) Description 06/09/2023 10:30 AM EDT Office Visit General Surgery, [facility] [address] [place] [address] Agustin Iglesias MD [address] [place] [address] Scheduled Procedures Name Priority Associated Diagnoses Date/Ti me COLONOSCOPY FLEXIBLE PROXIMAL DIAGNOSTIC Recall History of colon polyps Health Maintenance Due Date Last Done Comments Lipid Panel 1975 HIV Screening 10/16/1990 HPV/Co-Test 10/16/2005 Depression Screening 05/26/2018 05/26/2017 COVID-19 Vaccine ( season) 2022 01/01/2021, 04/17/2020, 03/20/2020 Influenza Vaccine (FLU shot) (Season Ended) 2023 11/18/2021, 11/17/2019, 12/05/2018, Additional history exists Cervical Cancer Screening 12/30/2023 Pap Smear 12/30/2023 12/29/2020, 04/2016 (Done elsewhere), 10/18/2011 Mammogram 03/03/2024 03/03/2023, 07/2022, 01/19/2021, Additional history exists COLONOSCOPY-EVERY 5 YRS AGES 18-100 12/22/2026 12/22/2021, 12/22/2021 DTaP,Tdap,and Td Vaccines (3 - Td or Tdap) 12/29/2031 12/28/2021, 12/27/2010 Colonoscopy Discontinued 12/22/2021, 12/22/2021 Colorectal Cancer Screening Discontinued Pneumococcal Vaccine: Pediatrics (0 to 5 Years) and At-Risk Patients (6 to 64 Years) Aged Out 12/28/2021, 02/24/2014 No longer eligibl e based on patient's age to complete this topic Cologuard Discontinued Fecal Occult Blood Test Discontinued GARDASIL-HPV IMMUNIZATION SERIES Aged Out No longer eligible based on patient's age to complete this topic MENINGOCOCCAL (MENACTRA/MENVEO) Aged Out No longer eligible based on patient's age to complete this topic Sigmoidoscopy Discontinued documented as of this encounter Medical Devices Not on filedocumented as of this encounter Visit Diagnoses Diagnosis Travel advice encounter- Primary Other specified counseling documented in this encounter Care Teams Solar Maintenance Technician Relationship Specialty Start Date End Date Kenisha Zepeda DO [address] [place] [address] PCP - General Family Medicine 09/05/18 documented as of this encounter
--- OUTSIDE RECORDS SUMMARY | 2023-08-11 11:53 | External Medical Summary | Summary of Care ---
Author Name Unknown Organization [facility] Address [address] [place] [address] Phone [phone] Care Team Providers Care Stencil Cutter Name Role Phone Kenisha Zepeda Primary Care Provider Reason for Visit * Reason Onset Date Comments Appointment 03/06/2023 Encounter Details Date Type Department Care Team (Late st Contact Info) Description 03/06/2023 Telephone General Internal Medicine [facility] 200 [facility] [place] [address] Arline Cuevas MD 200 [place] [address] Appointment Allergies Active Allergy Reactions Criticality Noted Date Comments Aloe Rash 05/10/2012 Prednisone 08/10/2020 Heightened anxiety. SOB and palpitations. documented as of this encounter (statuses as of 06/05/2023) Medications Medication Sig Dispensed Refills Start Date End Date Status MULTIVITAMIN/MINERALS 27-1 MG PO CAPS twice daily 0 Active diphenhydrAMINE HCl 25 MG Oral Capsule (Benadryl) Take 1 Capsule by mouth every 6 hours as needed for Itching (allergy symptoms). Takes a few times per week 0 Active Melatonin 3 MG Oral Tablet 3 Tablets. 0 03/01/2023 Active documented as of this encounter (statuses as of 06/05/2023) Active Problems Problem Noted Date Diagnosed Date Diverticulitis of colon 10/02/2020 Rheumatoid arthritis of [facility] sites without rheumatoid factor 09/21/2015 Recurrent [...] PPD 10/06/2014,09/29/2014 Pneumococcal Conjugate Vacci ne, 20-valent ([id number]) 12/28/2021 Pneumococcal Polysaccharide PPV23 (Pneumovax) 02/24/2014 Seasonal Influenza, PF, 6 M & above, IM , (FluLaval or Fluzone) 11/18/2021,02/01/2018,12/19/2016 Seasonal Influenza, Quadriva lent, No Preserve, Mdck 11/17/2019,12/05/2018 Seasonal Influenza, Split, I IV3, With Preserve, Inj 12/27/2015,11/08/2013,02/05/2013 TDAP (age 10 and older)(Boostrix) 12/28/2021,08/2010 documented as of this encounter Social History Tobacco Use Types Packs/Day Years Used Date Smoking Tobacco: Former Cigarettes 0.3 20 Smokeless Tobacco: Never Comments:under 10 cigs a [...] encounter Miscellaneous Notes * Telephone Encounter - Josue Benjamin OSA - 03/06/2023 11:09 AM EST Pt needs appointment with [facility] for dizziness. Please call pt to schedule. JHONNY Bautista documented in this encounter Plan of Treatment Upcoming Encounters Date Type Department Care Team (Late st Contact Info) Description 06/09/2023 10:30 AM EDT Office Visit General Surgery, [facility] [place] [address] Agustin Iglesias MD [address] [place] [address] Scheduled Procedures Name Priority Associated Diagnoses Date/Ti [...] filedocumented as of this encounter Care Teams Stencil Cutter Relationship Specialty Start Date End Date Kenisha Zepeda DO [address] [place] [address] PCP - General Family Medicine 09/05/18 documented as of this encounter
--- OUTSIDE RECORDS SUMMARY | 2023-08-11 11:53 | External Medical Summary | Summary of Care ---
Author Name Unknown Organization [facility] Address [address] [place] [address] Phone [phone] Care Team Providers Care Sat Act Instructor Name Role Phone Kenisha Zepeda DO Primary Care Provider Encounter Details Date Type Department Care Team (Late st Contact Info) Description 06/05/2023 2:00 PM EDT Telemedicine Family Practice [facility] 200 [place] [address] Rosita Sanchez PA-C 200 [facility] [place] [phone] Travel advice encounter* Allergies Active Allergy Reactions Criticality Noted Date Comments Aloe Rash 05/10/2012 Prednisone 08/10/2020 Heightened anxiety. SOB and palpitations. documented as of this encounter (statuses as of 06/05/2023) Medications Medication Sig Dispensed Refills Start Date End Date Status MULTIVITAMIN/DECAY CONTROL OPERATOR ALS 27-1 MG PO CAPS twice daily [...] Diverticulitis of colon 10/02/2020 Rheumatoid arthritis of [facility] sites without rheumatoid factor 09/21/2015 Recurrent [...] PPD 10/06/2014,09/29/2014 Pneumococcal Conjugate Vacci ne, 20-valent ([id number]) 12/28/2021 Pneumococcal Polysaccharide PPV23 (Pneumovax) 02/24/2014 Seasonal [...] two unique identifiers. Patient (or authorized legal sales representative adding machines) was then informed that this was a [...] for about a 3 hour flight to [place]. Gets panic attacks; sense of doom , [...] two unique identifiers. Patient (or authorized legal sales representative adding machines) was then informed that this was a Telemedicine visit and being conducted confidentially over secure lines. Methods to assure confidentiality were taken. Patient acknowledged consent and understanding of pr ivacy and security of the Telemedicine visit. The patient agreed to participate. documented in this encounter Miscellaneous Notes * Addendum Note - Rosita Sanchez PA-C - 06/05/2023 3:44 PM EDTAddended by: ROSITA SANCHEZ on: 06/05/2023 03:44 PM Modules accepted: Level of Service documented in this encounter Plan of Treatment Upcoming Encounters Date Type Department Care Team (Late st Contact Info) Description 06/09/2023 10:30 AM EDT Office Visit General Surgery, [facility] [address] [address] Agustin Iglesias MD [address] [place] [address] Scheduled Procedures Name Priority Associated Diagnoses Date/Ti [...] counseling documented in this encounter Care Teams Sat Act Instructor Relationship Specialty Start Date End Date Kenisha Zepeda DO [address] [place] [address] PCP - General Family Medicine 09/05/18 documented as of this encounter
--- OUTSIDE RECORDS SUMMARY | 2023-08-11 11:54 | External Medical Summary | Summary of Care ---
Author Name Unknown Organization [facility] Address [address] [place] [address] Phone [phone] Care Team Providers Care Quality Control Tester Name Role Phone Kenisha Zepeda DO Primary Care Provider Reason for Visit * Reason Onset Date Comments Appointment 05/17/2023 Encounter Details Date Type Department Care Team (Late st Contact Info) Description 05/17/2023 Telephone Family Practice [facility] 200 [facility] [place] [address] Kenisha Zepeda DO 200 [place] [address] Appointment Allergies Active Allergy Reactions Criticality Noted Date Comments Aloe Rash 05/10/2012 Prednisone 08/10/2020 Heightened anxiety. SOB and palpitations. documented as of this encounter (statuses as of 05/18/2023) Medications Medication Sig Dispensed Refills Start Date End Date Status MULTIVITAMIN/MINERALS 27-1 MG PO CAPS twice daily 0 Active diphenhydrAMINE HCl 25 MG Oral Capsule (Benadryl) Take 1 Capsule by mouth every 6 hours as needed for Itching (allergy symptoms). Takes a few times per week 0 Active Meclizine HCl 25 MG Oral Tablet (Antivert) 1 Tablet. 0 03/01/2023 Ac tive Melatonin 3 MG Oral Tablet 3 Tablets. 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 09/21/2015 documented as of this encounter (statuses as of 05/18/2023) Immunizations Name Administration Dates Next Due COVID-19 mRNA, LNP-s, No Pre serve, 2-Dose Series (Moderna) 04/17/2020,03/20/2020 COVID-19 mRNA, LNP-s, No Pre serve, 2-Dose Series (Pfizer) 01/01/2021 Hepatitis B, 20+ yrs 09/29/2014 PPD 10/06/2014,09/29/2014 Pneumococcal Conjugate Vacci ne, 20-valent ([id number]) 12/28/2021 Pneumococcal Polysaccharide PPV23 (Pneumovax) 02/24/2014 Seasonal [...] encounter Miscellaneous Notes * Telephone Encounter - Brandy Pierson OSA - 05/17/2023 8:45 AM EDT Adrienne calling in for an appt today but looking to have call back with Video around 3:00 or later as no apts for in person or Video at any clinic locations today. She has flare up of her diverticulitis for about 2 wks now and getting worse. Please advise and call her back some time today please. * Telephone Encounter - Gerda Delacruz CPhT - 05/17/2023 8:28 AM EDT Pt calling to schedule tele appt. Transferred Pt to scheduling . Thank you, Gerda Delacruz CPhT Aluminum Pourer II [facility] ([facility]) (Formerly Telepharmacy) 05/17/2023,8:29 AM documented in this encounter Plan of Treatment Upcoming Encounters Date Type Department Care Team (Late st Contact Info) Description 05/22/2023 2:20 PM EDT Office Visit Family Practice [facility] [address] [place] [address] Rostia Sanchez PA-C [address] [place] [address] Scheduled Procedures Name Priority Associated Diagnoses Date/Ti me COLONOSCOPY FLEXIBLE PROXIMAL DIAGNOSTIC Recall History of colon polyps Health Maintenance Due Date Last Done Comments Lipid Panel 1975 HIV Screening 10/16/1990 HPV/Co-Test 10/16/2005 Depression Screening 05/26/2018 05/26/2017 COVID-19 Vaccine ( season) 2022 01/01/2021, 04/17/2020, 03/20/2020 Influenza Vaccine (FLU shot) (#1) 2022 11/18/2021, 11/17/2019, 12/05/2018, Additional history exists Cervical [...] filedocumented as of this encounter Care Teams Quality Control Tester Relationship Specialty Start Date End Date Kenisha Zepeda DO [facility] [place] [address] PCP - General Family Medicine 09/05/18 documented as of this encounter
--- OUTSIDE RECORDS SUMMARY | 2023-08-11 11:54 | External Medical Summary | Summary of Care ---
Author Name Unknown Organization [facility] Address [address] [place] [address] Phone [phone] Care Team Providers Care Verify Rep Name Role Phone Kenisha Zepeda DO Primary Care Provider Encounter Details Date Type Department Care Team (Late st Contact Info) Description 03/01/2023 Orders Only Family Practice [facility] [address] [facility] [place] [phone] Kenisha [facility]epeda DO [facility] [address] Allergies Active Allergy Reactions Criticality Noted Date Comments Aloe Rash 05/10/2012 Prednisone 08/10/2020 Heightened anxiety. SOB and palpitations. documented as of this encounter (statuses as of 03/17/2023) Medications Medication Sig Dispensed Refills Start Date End Date Status MULTIVITAMIN/MINERALS 27-1 MG PO CAPS twice daily 0 Active diphenhydrAMINE HCl 25 MG Oral Capsule (Benadryl) Take 1 Capsule by mouth every 6 hours as needed for Itching (allergy symptoms). 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 09/21/2015 documented as of this encounter (statuses as of 03/17/2023) Immunizations Name Administration Dates Next Due COVID-19 mRNA, LNP-s, No Pre serve, 2-Dose Series (Moderna) 04/17/2020,03/20/2020 COVID-19 mRNA, LNP-s, No Pre serve, 2-Dose Series (Pfizer) 01/01/2021 Hepatitis B, 20+ yrs 09/29/2014 PPD 10/06/2014,09/29/2014 Pneumococcal Conjugate Vacci ne, 20-valent ([id number]) 12/28/2021 Pneumococcal Polysaccharide PPV23 (Pneumovax) 02/24/2014 Seasonal [...] on file documented as of this encounter Plan of Treatment Upcoming Encounters Date Type Department Care Team ([facility] st Contact Info) Description 04/21/2023 8:45 AM EST Cardiac Studies Cardiac Studies, [place] [address] [place], [place] [address] Scheduled Procedures Name Priority Associated Diagnoses Date/Ti [...] Not on filedocumented as of this encounter Procedures Procedure Name Priority Date/Time Associated Diagnosis Comments RADIOLOGY EXAM - CT (IMAGES ONLY, NO REPORT) Routine 03/01/2023 1:10 PM EST documented in this encounter Results * RADIOLOGY EXAM - CT (IMAGES ONLY, NO REPORT) (03/01/2023 1:10 PM EST) 03/01/2023 1:10 PM EST Narrative Scheduling, Silent - 03/17/2023 4:26 PM EST This is an imaging study not interpreted or resulted by a [facility] or [facility] contracted radiologist. Kenisha Zepeda DO RAD CT documented in this encounter Care Teams Verify Rep Relationship Specialty Start Date End Date Kenisha Zepeda DO 200 [facility] [place] [address] PCP - General Family Medicine 09/05/18 documented as of this encounter
--- OUTSIDE RECORDS SUMMARY | 2023-08-11 11:54 | External Medical Summary | Summary of Care ---
Author Name Unknown Organization [facility] Address [address] [place] [address] Phone [phone] Care Team Providers Care Market Sales Manager Name Role Phone Kenisha Zepeda Primary Care Provider Reason for Visit * Reason Onset Date Comments Med Request 05/03/2023 Encounter Details Date Type Department Care Team (Late st Contact Info) Description 05/03/2023 Telephone [facility], [facility] [address] [facility] [address] Bong Parker MD Med Request Allergies Active Allergy Reactions Criticality Noted Date Comments Aloe Rash 05/10/2012 Prednisone 08/10/2020 Heightened anxiety. SOB and palpitations. 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 09/21/2015 documented as of this encounter (statuses as of 05/04/2023) Immunizations Name Administration Dates Next Due COVID-19 mRNA, LNP-s, No Pre serve, 2-Dose Series (Moderna) 04/17/2020,03/20/2020 COVID-19 mRNA, LNP-s, No Pre serve, 2-Dose Series (Pfizer) 01/01/2021 Hepatitis B, 20+ yrs 09/29/2014 PPD 10/06/2014,09/29/2014 Pneumococcal Conjugate Vacci ne, 20-valent ([id number]) 12/28/2021 Pneumococcal Polysaccharide PPV23 (Pneumovax) 02/24/2014 Seasonal [...] encounter Miscellaneous Notes * Telephone Encounter - Ileana Youssef PHARM Tech - 05/03/2023 8:47 AM EDT Pt called and was transferred to the Specialty Line Thank you, Ileana Youssef CPhT Monitor Car Operator II [facility] ([facility]) (formerly Telepharmacy) 05/03/2023,8:48 AM documented in this encounter Plan of Treatment Upcoming Encounters Date Type Department Care Team (Late st Contact Info) Description 05/22/2023 2:20 PM EDT Office Visit [facility] [place] 200 [facility] [place] [address] [place] DEBI Talavera 200 [facility] [place] [address] Scheduled Procedures Name Priority Associated Diagnoses Date/Ti [...] filedocumented as of this encounter Care Teams Market Sales Manager Relationship Specialty Start Date End Date Kenisha Zepeda DO [address] [place] [address] PCP - General Family Medicine 09/05/18 documented as of this encounter
--- OUTSIDE RECORDS SUMMARY | 2023-08-11 11:54 | External Medical Summary | Summary of Care ---
Author Name Unknown Organization [facility] Address [address] [place] [address] Phone [phone] Care Team Providers Care Design Teacher Name Role Phone Kenisha Zepeda Primary Care Provider Encounter Details Date Type Department Care Team (Latest Contact Info) Description 03/01/2023 1:15 PM EST - 03/01/2023 1:19 PM EST Hospital Encounter Radiology Film File [address] [place] [address] Discharge Disposition: Home - Self Care Allergies Active Allergy Reactions Criticality Noted Date Comments Aloe Rash 05/10/2012 Prednisone 08/10/2020 Heightened anxiety. SOB and palpitations. documented as of this encounter (statuses as of 03/18/2023) Medications Medication Sig Dispensed Refills Start Date End Date Status MULTIVITAMIN/MINERALS 27-1 MG PO CAPS twice daily 0 Active diphenhydrAMINE HCl 25 MG Oral Capsule (Benadryl) Take 1 Capsule by mouth every 6 hours as needed for Itching (allergy symptoms). 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 09/21/2015 documented as of this encounter (statuses as of 03/18/2023) Immunizations Name Administration Dates Next Due COVID-19 mRNA, LNP-s, No Pre serve, 2-Dose Series (Moderna) 04/17/2020,03/20/2020 COVID-19 mRNA, LNP-s, No Pre serve, 2-Dose Series (Pfizer) 01/01/2021 Hepatitis B, 20+ yrs 09/29/2014 PPD 10/06/2014,09/29/2014 Pneumococcal Conjugate Vacci ne, 20-valent ([id number]) 12/28/2021 Pneumococcal Polysaccharide PPV23 (Pneumovax) 02/24/2014 Seasonal [...] Care Team (Late st Contact Info) Description 04/21/2023 8:45 AM EST Cardiac Studies Cardiac Studies, [place] [address] [place] [address] Scheduled Procedures Name Priority Associated Diagnoses Date/Ti [...] CT (IMAGES ONLY, NO REPORT) Routine 03/01/2023 1:15 PM EST documented in this encounter Results * RADIOLOGY EXAM - CT (IMAGES ONLY, NO REPORT) (03/01/2023 1:15 PM EST) 03/01/2023 1:10 PM EST Narrative Scheduling, Silent - 03/17/2023 4:28 PM EST This is an imaging study not interpreted or resulted by a [employer] or [employer] contracted radiologist. Kenisha Zepeda DO RAD CT documented in this encounter Care Teams Design Teacher Relationship Specialty Start Date End Date Kenisha Zepeda DO [address] [facility] [place] [address] PCP - General Family Medicine 09/05/18 documented as of this encounter
--- OUTSIDE RECORDS SUMMARY | 2023-08-11 11:54 | External Medical Summary | Summary of Care ---
Author Name Unknown Organization [facility] Address [address] [place] [address] Phone [phone] Care Team Providers Care Security Shift Supervisor Name Role Phone Kenisha Zepeda DO Primary Care Provider Reason for Visit * Reason Comments Acute Encounter Details Date Type Department Care Team (Late st Contact Info) Description 04/26/2023 4:00 PM EST Office Visit Family [facility] [address] [facility] [place] [address] Rosita Sanchez PA-C [address] [facility] [place] [address] Seborrheic keratosis*; Rheumatoid arthritis of multiple sites without rheumatoid factor (HCC); Counseling about travel Allergies Active Allergy Reactions Criticality Noted Date Comments Aloe Rash 05/10/2012 Prednisone 08/10/2020 Heightened anxiety. SOB and palpitations. documented as of this encounter (statuses as of 04/26/2023) Medications Medication Sig Dispensed Refills Start Date [...] as of this encounter (statuses as of 04/26/2023) Active Problems Problem Noted Date Diagnosed Date Diverticulitis of colon 10/02/2020 Rheumatoid arthritis of 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 Never true 03/04/19 Within the past 12 months, t he [...] on file documented as of this encounter Last Filed Vital Signs Vital Sign Reading Time Taken Comments Blood Pressure 118/78 04/26/2023 4:04 PM EST Pulse 87 04/26/2023 4:04 PM EST Temperature 36.7 C (98.1 F) 04/26/2023 4:04 PM ES T Respiratory Rate 16 04/26/2023 4:04 PM EST Oxygen Saturation 99% 04/26/2023 4:04 PM EST Inhaled Oxygen Concentration - - Weight 76.2 kg (168 lb 0.6 oz) 04/26/2023 4:04 P M EST Height - - Body Mass Index 24.82 03/04/2023 10:50 AM EST documented in this encounter Progress Notes * Rosita Sanchez PA-C - 04/26/2023 4:23 PM EST Images from the original note were not included. History of Present Illness Adrienne Sanchez is a 47 year old adult that presents for Acute Patient is a 47 year old female who presents with some skin lesion on her left shoulder and back. Digs at lesion on back. Gets anxiety with flying Physical Exam Vitals: 04/26/23 1604 Temp: 36.7 C (98.1 F) Pulse: 87 Resp: 16 SpO2: 99% BP: 118/78 BP Readings from Last 3 Encounters: 04/26/23 118/78 03/10/23 104/70 03/04/23 108/70 Wt Readings from Last 3 Encounters: 04/26/23 76.2 kg (168 lb 0.6 oz) 03/10/23 75.4 kg (166 lb 3.2 oz) 03/04/23 74.1 kg (163 lb 4.8 oz) General: alert, healthy, no distress, well nourished, well developed, comfortable, and cooperative Head: Normocephalic, No masses, lesions, tenderness or abnormalities Eye Exam: PERRLA, extraocular movements intact, conjunctiva are pink and non- injected, sclera clear Lungs: chest symmetric with normal AP diameter, no chest deformities noted, normal respiratory rateand rhythm, diaphragmatic excursion normal Skin: skin color, texture, turgor are normal, no rashes or significant lesions, seborrheic keratosis: generalized I have reviewed the following results: None Assessment and Plan Seborrheic keratosis (Primary) Rheumatoid arthritis of 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 documented in this encounter Nursing Notes * Ira Matthews LPN - 04/26/2023 3:59 PM EST Patient presents in office today with C/O growth or right side near axillary area. Discovered it a few weeks ago. Itchy but no pain documented in this encounter Plan of Treatment Upcoming Encounters Date Type Department Care Team (Late st Contact Info) Description 05/22/2023 2:20 PM EDT Office Visit Family Practice [facility] Kerry Montes [address] [place] [address] Rosita Sanchez PA-C [address] [place] [address] Scheduled Procedures Name Priority Associated Diagnoses Date/Ti [...] as of this encounter Visit Diagnoses Diagnosis Seborrheic keratosis- Primary Other seborrheic keratosis Rheumatoid arthritis of multiple sites without rheumatoid factor (HCC) Rheumatoid arthritis Counseling about travel Other specified counseling documented in this encounter Care Teams Security Shift Supervisor Relationship Specialty Start Date End Date Kenisha Zepeda DO [address] [place] [address] PCP - General Family Medicine 09/05/18 documented as of this encounter
--- OUTSIDE RECORDS SUMMARY | 2023-08-11 11:54 | External Medical Summary | Summary of Care ---
Author Name Unknown Organization [facility] Address [address] [place] [address] Phone [phone] Care Team Providers Care Juvenile Court Judge Name Role Phone Katelyn De Faith Primary Care Provider Reason for Referral * Evaluate & Treat - Unlimited Visits (Within 10 days (routine)) - Pending Review Specialty Diagnoses / Procedures Referred By Nandini gonsales Referred To Contact General Surgery Diagnoses Acute LUQ pain Left flank pain History of diverticulitis of colon Zeina Woodward PA-C [address] [address] Referral ID Status Reason Start Date Expiration Date Visits Requested Visits Authorized [id number] Pending Review Specialty Services Required 05/18/[phone] Question Answer Referral Priority Within 10 days (routine) Where should this appointment be scheduled? [facility] What condition is the patient being seen for? Diverticulitis/Diverticulosis Comments Long hx diverticulosis and litis Reason for Visit * Reason Comments Abdominal Pain Encounter Details Date Type Department Care Team (Latest Contact Info) Description 05/18/2023 11:45 AM EDT Convenient Care Visit [facility] [address] [place] [address] Zeina Woodward PA-C [address] [address] Acute LUQ pain*; Left flank pain; History of diverticulitis of colon Allergies Active Allergy Reactions Criticality Noted Date [...] Oral Tablet 3 Tablets. 0 03/01/2023 Active Amoxicillin-Pot Clavulanate 875-125 MG Oral Tablet (Augmentin)Indications :Acute LUQ pain,Left flank pain,History of diverticulitis of colon Take 1 Tablet by mouth in the morning and 1 Tablet before bedtime. Do all this for 10 days. 20 Tablet 0 05/18/2023 05/28/2023 Active documented as of this encounter (statuses as of 05/18/2023) Active Problems Problem Noted Date Diagnosed Date Diverticulitis of colon 10/02/2020 Rheumatoid arthritis of [facility] sites without rheumatoid factor 09/21/2015 Recurrent [...] PPD 10/06/2014,09/29/2014 Pneumococcal Conjugate Vacci ne, 20-valent ([id number]) 12/28/2021 Pneumococcal Polysaccharide PPV23 (Pneumovax) 02/24/2014 Seasonal Influenza, PF, 6 M & above, IM , (FluLaval or Fluzone) 11/18/2021,02/01/2018,12/19/2016 Seasonal Influenza, Quadriva lent, No Preserve, Mdck 11/17/2019,12/05/2018 Seasonal Influenza, Split, I IV3, With Preserve, Inj 12/27/2015,11/08/2013,02/05/2013 TDAP (age 10 and older)(Boostrix) 12/28/2021,08/2010 documented as of this encounter Social History Tobacco Use Types Packs/Day Years Used Date Smoking Tobacco: Former Cigarettes 0.3 20 2 - 2021 Smokeless Tobacco: Never Comments:under 10 [...] Sign Reading Time Taken Comments Blood Pressure 104/64 05/18/2023 11:41 AM EDT Pulse 95 05/18/2023 11:41 AM EDT Temperature 36.6 C (97.8 F) 05/18/2023 11:41 AM E DT Respiratory Rate 18 05/18/2023 11:41 AM EDT Oxygen Saturation 97% 05/18/2023 11:41 AM EDT Inhaled Oxygen Concentration - - Weight 75.8 kg (167 lb) 05/18/2023 11:41 AM EDT Height 175.3 cm (5' 9") 05/18/2023 11:41 AM EDT Body Mass Index 24.66 05/18/2023 11:41 AM EDT documented in this encounter Patient Instructions * Patient Instructions* Zeina Woodward PA-C - 05/18/2023 12:04 PM EDT Sid mata for xray Start meds documented in this encounter Progress Notes * Zeina Woodward PA-C - 05/18/2023 11:46 AM EDT Subjective: Nursing Notes: Radha Floyd LPN 05/18/23 1143 Signed Adrienne Sanchez is a 47 year old adult who presents to walk-in clinic today complaining of Chief Complaint Patient presents with Abdominal Pain Main Symptoms: abd pain, constipation, pain after eating Cause: unknown How lon weeks Tried: liquid diet, increased fluids, tylenol Pt accompanied by: self Sx are upper left side to left lateral side pain. Had been in LLQ last night but no now. Pain off and on x 2 week, pretty constant LLQ until moved to [employer] freq of urination, denies hematuria Confirms some constipation. Last CT with active diverticulitis was 2018. Has had colonoscopy which shows diverticulosis no sick contacts at home. Sig med hx/risk factors: hx diverticulitis several times a year. Pain now feels like when she has had diverticulitis in the past Review of Systems Constitutional: Negative for activity change, appetite change, fatigue and fever. Eyes: Negative for discharge and redness. Respiratory: Negative for cough, chest tightness, shortness of breath and wheezing. Cardiovascular: Negative for chest pain. Gastrointestinal: Positive for abdominal pain and constipation. Negative for anal bleeding, blood in stool, diarrhea, nausea, rectal pain and vomiting. Genitourinary: Negative. Musculoskeletal: Negative for myalgias. Allergic/Immunologic: Negative for environmental allergies. Neurological: Negative for dizziness. Hematological: Negative for adenopathy. 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 Takes a few times per week Meclizine HCl 25 MG Oral Tablet (Antivert) 1 Tablet. Melatonin 3 MG Oral Tablet 3 Tablets. Amoxicillin-Pot Clavulanate 875-125 MG Oral Tablet (Augmentin) Take 1 Tablet by mouth in the morning and 1 Tablet before bedtime. Do all this for 10 days. 20 Tablet 0 No current facility-administered medications for this visit. Past Medical History: Diagnosis Date Vertigo intermittent wtih travel. 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 SOB and palpitations. Objective: BP 104/64 | Pulse 95 | Temp 36.6 C (97.8 F) (Tympanic) | Resp 18 | Ht 1.753 m (5' 9") | Wt 75.8kg (167 lb) | SpO2 97% | BMI 24.66 kg/m | BSA 1.92 m Physical Exam Constitutional: General: Adrienne Sanchez is not in acute distress. Appearance: Normal appearance. Adrienne Sanchez is normal weight. Adrienne Sanchez is not ill-appearing. HENT: Mouth/Throat: Mouth: Mucous membranes are moist. Cardiovascular: Rate and Rhythm: Normal rate and regular rhythm. Heart sounds: Normal heart sounds. Pulmonary: Effort: Pulmonary effort is normal. No respiratory distress. Breath sounds: Normal breath sounds. No wheezing or rhonchi. Abdominal: General: There is no distension. Tenderness: There is no abdominal tenderness. There is no right CVA tenderness, left CVA tendernessor guarding. Musculoskeletal: Cervical back: Normal range of motion. Skin: Findings: No rash. Neurological: Mental Status: Adrienne Sanchez is alert and oriented to person, place, and time. Psychiatric: Mood and Affect: Mood normal. Thought Content: Thought content normal. Judgment: Judgment normal. Suspect is diverticulitis and will start treatment but checking for renal stone ASSESSMENT/PLAN: Acute LUQ pain (Primary) - URINALYSIS, POINT OF CARE (ENTER/EDIT) - XR ABDOMEN 1 VIEW - Amoxicillin-Pot Clavulanate 875-125 MG Oral Tablet (Augmentin); Take 1 Tablet by mouth in the morning and 1 Tablet before bedtime. Do all this for 10 days. - COLORECTAL SURGERY REFERRAL OP - MICROSCOPIC EXAM, URINE; Future; Expected date: 05/18/2023 Left flank pain - URINALYSIS, POINT OF CARE (ENTER/EDIT) - XR ABDOMEN 1 VIEW - Amoxicillin-Pot Clavulanate 875-125 MG Oral Tablet (Augmentin); Take 1 Tablet by mouth in the morning and 1 Tablet before bedtime. Do all this for 10 days. - COLORECTAL SURGERY REFERRAL OP - MICROSCOPIC EXAM, URINE; Future; Expected date: 05/18/2023 History of diverticulitis of colon - Amoxicillin-Pot Clavulanate 875-125 MG Oral Tablet (Augmentin); Take 1 Tablet by mouth in the morning and 1 Tablet before bedtime. Do all this for 10 days. - COLORECTAL SURGERY REFERRAL OP Patient Instructions Sid mata for xray Start meds Discussed referral which pt had in past and met w surgeon but that person left [facility] Radiology findings: FINDINGS The bowel gas pattern is nonobstructive. No dilated loops of bowel are seen. Moderate fecal material in the colon There are no abnormal calcifications. Degenerative changes in the spine. IMPRESSION IMPRESSION No definite urinary tract calculus. Return instruction reviewed with pt in detail. Reasons to report to the ED were also reviewed. Voiced understanding Advised to follow up if no improvement in 3-5days. Zeina Woodward PA-C documented in this encounter Nursing Notes * Radha Floyd LPN - 05/18/2023 11:39 AM EDT Adrienne Sanchez is a 47 year old adult who presents to walk-in clinic today complaining of Chief Complaint Patient presents with Abdominal Pain Main Symptoms: abd pain, constipation, pain after eating Cause: unknown How lon weeks Tried: liquid diet, increased fluids, tylenol Pt accompanied by: self documented in this encounter Plan of Treatment Upcoming Encounters Date Type Department Care Team (Late st Contact Info) Description 05/22/2023 2:20 PM EDT Office Visit Family Practice [facility] [address] [facility] [place] [address] Rosita Sanchez PA-C [address] [facility] [address] [id number] Scheduled Orders Name Type Priority Associated Diagnoses Orde r Schedule MICROSCOPIC EXAM, URINE Lab Routine Acute LUQ pain Left flank pain Expected: 05/18/2023, Expires: 05/17/2024 Scheduled Procedures Name Priority Associated Diagnoses Date/Ti me COLONOSCOPY FLEXIBLE PROXIMAL DIAGNOSTIC Recall History of colon polyps Scheduled Referrals Name Type Priority Associated Diagnoses Orde r Schedule COLORECTAL SURGERY REFERRAL OP Referral Within 10 days (routine) Acute LUQ pain Left flank pain History of diverticulitis of colon Ordered: 05/18/2023 Health Maintenance Due Date Last Done Comments [...] Procedure Name Priority Date/Time Associated Diagnosis Comments XR ABDOMEN 1 VIEW STAT 05/18/2023 12: 55 PM EDT Acute LUQ pain Left flank pain URINALYSIS, POINT OF CARE (ENTER/EDIT) Routine 05/18/2023 Acute LUQ pain Left flank pain documented in this encounter Results * XR ABDOMEN 1 VIEW (05/18/2023 12:55 PM EDT) Anatomical Region Laterality Modality Abdomen, Pelvis Computed Radiogr aphy 05/18/2023 5:07 PM EDT Impressions 05/18/2023 5:04 PM EDT IMPRESSION No definite urinary tract calculus. Narrative 05/18/2023 5:04 PM EDT EXAM XR ABDOMEN 1 VIEW - 05/18/2023 12:55 pm HISTORY left flank pain TECHNIQUE Single AP supine view of the abdomen was obtained. COMPARISON None. FINDINGS The bowel gas pattern is nonobstructive. No dilated loops of bowel are seen. Moderate fecal material in the colon There are no abnormal calcifications. Degenerative changes in the spine. Procedure Note Ghassan Cuevas MD - 05/18/2023 EXAM XR ABDOMEN 1 VIEW - 05/18/2023 12:55 pm HISTORY left flank pain TECHNIQUE Single AP supine view of the abdomen was obtained. COMPARISON None. FINDINGS The bowel gas pattern is nonobstructive. No dilated loops of bowel areseen. Moderate fecal material in the colon There are no abnormal calcifications. Degenerative changes in the spine. IMPRESSION IMPRESSION No definite urinary tract calculus. Zeina Woodward PA-C RADIOLOGY (RAD GENERAL) * URINALYSIS, POINT OF CARE (ENTER/EDIT) (05/18/2023) Color, Urine Yellow Yellow or Light Yellow Clarity, Urine Clear Clear Glucose, Urine Negative Negative mg/dL Bilirubin, Urine Negative Negative Ketone, Urine Negative Negative mg/dL Specific [place], Urine 1.025 1.003 - 1.030 Blood, Urine Negative Negative pH, Urine 6.5 5.0 - 7.5 units Protein, Urine Negative Negative mg/dL Urobilinogen, Urine 0.2 0.2 - 1.0 mg/dL Nitrite, Urine Negative Negative Esterase, Urine Negative Negative Urine 05/18/2023 Zeina Woodward PA-C LAB POINT OF C ARE TEST ENTER/EDIT ORDERABLES documented in this encounter Visit Diagnoses Diagnosis Acute LUQ pain- Primary Abdominal pain, left upper quadrant Left flank pain Abdominal pain, unspecified site History of diverticulitis of colon Personal history of other diseases of digestive system documented in this encounter Care Teams Juvenile Court Judge Relationship Specialty Start Date End Date Kenisha Zepeda DO [address] [place] [address] PCP - General Family Medicine 09/05/18 documented as of this encounter
--- OUTSIDE RECORDS SUMMARY | 2023-08-11 11:54 | External Medical Summary | Summary of Care ---
Author Name Unknown Organization [facility] Address [address] [place] [address] Phone [phone] Care Team Providers Care Hedge Fund Principal Name Role Phone Kenisha Zepeda DO Primary Care Provider Reason for Visit * Reason Onset Date Comments Appointment 05/17/2023 Encounter Details Date Type Department Care Team (Late st Contact Info) Description 05/17/2023 Telephone Family Practice [facility] 200 [facility] [place] [address] Kenisha Zepeda DO 200 [place] [address] Appointment Allergies Active Allergy Reactions Criticality Noted Date Comments Aloe Rash 05/10/2012 Prednisone 08/10/2020 Heightened anxiety. SOB and palpitations. 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 Thank you, Gerda Delacruz CPhT [facility] (Formerly [...] filedocumented as of this encounter Care Teams Hedge Fund Principal Relationship Specialty Start Date End Date Kenisha Zepeda DO [address] [place] [address] PCP - General Family Medicine 09/05/18 documented as of this encounter
--- OUTSIDE RECORDS SUMMARY | 2023-08-11 11:54 | External Medical Summary | Summary of Care ---
Author Name Unknown Organization [facility] Address [address] [place] [address] Phone [phone] Care Team Providers Care Emr Specialist Name Role Phone Katelyn Kenisha Wootenly Primary Care Provider Reason for Visit * Reason Comments Rash Patient has some delatorre ses around her back, upper left shoulder, hip. Has had them for a couple years. Itchy no pain. Encounter Details Date Type Department Care Team (Late st Contact Info) Description 05/22/2023 2:20 PM EDT Office Visit Family Practice [facility] [place] [address] [facility] [place] [address] Rosita Sanchez PA-C [address] 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 09/21/2015 Recurrent iritis [...] PPD 10/06/2014,09/29/2014 Pneumococcal Conjugate Vacci ne, 20-valent ([id number]) 12/28/2021 Pneumococcal Polysaccharide PPV23 (Pneumovax) 02/24/2014 Seasonal [...] 2 002 - 2021 Smokeless Tobacco: Never Tobacco Cessation:Counseling Given: Not Answered Comments:under 10 cigs a day Alcohol Use [...] Sign Reading Time Taken Comments Blood Pressure 100/70 05/22/2023 2:27 PM EDT Pulse 88 05/22/2023 2:27 PM EDT Temperature 37.1 C (98.7 F) 05/22/2023 2:27 PM ED T Respiratory Rate 16 05/22/2023 2:27 PM EDT Oxygen Saturation 98% 05/22/2023 2:27 PM EDT Inhaled Oxygen Concentration - - Weight 75.8 kg (167 lb) 05/22/2023 2:27 PM EDT Height - - Body Mass Index 24.66 05/18/2023 11:41 AM EDT documented in this encounter Progress Notes * Rosita Sanchez PA-C - 05/22/2023 2:58 PM EDT Images from the original note were not included. History of Present Illness Adrienne Sanchez is a 47 year old adult that presents for Rash (Patient has some raises around her back, upper left shoulder, hip. Has had them for a couple years. Itchy no pain. ) Patient is a 47-year-old female who presents today to discuss removal of skin lesions discussed at previous visit. She has been on her left shoulder to on her right posterior flank 1 on her right upper thigh. Denies any bleeding states it just kind of been present for months in her problematic catching on clothing. Denies any bleeding. No history of any kind of previous skin cancers. Physical Exam Vitals: 05/22/23 1427 Temp: 37.1 C (98.7 F) Pulse: 88 Resp: 16 SpO2: 98% BP: 100/70 BP Readings from Last 3 Encounters: 05/22/23 100/70 05/18/23 104/64 04/26/23 118/78 Wt Readings from Last 3 Encounters: 05/22/23 75.8 kg (167 lb) 05/18/23 75.8 kg (167 lb) 04/26/23 76.2 kg (168 lb 0.6 oz) General: alert, healthy, no distress, well nourished, well developed, comfortable, and cooperative Head: Normocephalic, No masses, lesions, tenderness or abnormalities Ears: Lungs: chest symmetric with normal AP diameter, no chest deformities noted, normal respiratory rateand rhythm, diaphragmatic excursion normal Skin: skin color, texture, turgor are normal, no rashes or significant lesions, seborrheic keratosis: back, trunk, and upper legs Procedure: After verbal consent was obtained, liquid nitrogen was applied using the cryo gun. For lesions total were frozen. One left shoulder, to right posterior flank, when right upper thigh. Patient tolerated the procedure well. I have reviewed the following results: None Assessment and Plan Seborrheic keratosis (Primary) - BENIGN LESION DESTRUCTION, UP TO 14 LESIONS Advised on skin of surgical sites. Wrap-Up Time: I spent a total of 20-29 minutes (exact time 23 mins) on the date of service in preparation, delivery, and documentation of the care provided to Adrienne Sanchez excluding any time spent in the performance of separately billed services. documented in this encounter Nursing Notes * Turner Maciel, MED ASSIST - 05/22/2023 2:26 PM EDT The patient has been properly identified by confirmation of name and date of . Chief Complaint Patient presents with Rash Patient has some raises around her back, upper left shoulder, hip. Has had them for a couple years.Itchy no pain. documented in this encounter Plan of Treatment Scheduled Orders Name Type Priority Associated Diagnoses Orde r Schedule BENIGN LESION DESTRUCTION, UP TO 14 LESIONS Procedures Routine Seborrheic keratosis Ordered: 05/22/2023 Scheduled Procedures Name Priority Associated Diagnoses Date/Ti [...] Diagnosis Seborrheic keratosis- Primary Other seborrheic keratosis documented in this encounter Care Teams Emr Specialist Relationship Specialty Start Date End Date Kenisha Zepeda DO [address] [place] [address] PCP - General Family Medicine 09/05/18 documented as of this encounter
--- OUTSIDE RECORDS SUMMARY | 2023-08-11 11:54 | External Medical Summary | Summary of Care ---
Author Name Unknown Organization [facility] Address [address] [place] [address] Phone [phone] Care Team Providers Care Complaint Operator Name Role Phone Kenisha Zepeda DO Primary Care Provider Encounter Details Date Type Department Care Team (Late st Contact Info) Description 03/01/2023 Orders Only Family Practice [facility] 200 [facility] [place] [id number] [facility] DO [facility] [address] Allergies Active Allergy Reactions Criticality Noted [...] Diverticulitis of colon 10/02/2020 [facility] [place] [facility] sites without rheumatoid factor 09/21/2015 Recurrent [...] PPD 10/06/2014,09/29/2014 Pneumococcal Conjugate Vacci ne, 20-valent ([id number]) 12/28/2021 Pneumococcal Polysaccharide PPV23 (Pneumovax) 02/24/2014 Seasonal [...] Upcoming Encounters Date Type Department Care Team ([facility] st Contact Info) Description 04/21/2023 8:45 AM EST Cardiac Studies Cardiac Studies, [place] [address] [place], [place] [id number] Scheduled Procedures Name Priority Associated Diagnoses Date/Ti [...] Date/Time Associated Diagnosis Comments RADIOLOGY EXAM - MRI (IMAGES ONLY, NO REPORT) Routine 03/01/2023 4:50 PM EST documented in this encounter Results * RADIOLOGY EXAM - MRI (IMAGES ONLY, NO REPORT) (03/01/2023 4:50 PM EST) 03/01/2023 4:49 PM EST Narrative Scheduling, Silent - 03/17/2023 4:31 PM EST This is an imaging study not interpreted or resulted by a [facility] or [email or web address] contracted radiologist. Kenisha Zepeda DO RAD MRI-MRA documented in this encounter Care Teams Complaint Operator Relationship Specialty Start Date End Date Kenisha Zepeda DO [address] [place] [address] PCP - General Family Medicine 09/05/18 documented as of this encounter
--- OUTSIDE RECORDS SUMMARY | 2023-08-11 11:54 | External Medical Summary | Summary of Care ---
Author Name Unknown Organization [facility] Address [address] [place] [address] Phone [phone] Care Team Providers Care Supervisor Edging Name Role Phone Kenisha Zepeda Primary Care Provider Encounter Details Date Type Department Care Team (Late st Contact Info) Description 05/20/2023 Orders Only PATIENT PORTAL DO NOT DELETE THIS DEPT USED BY [place] [address] Allergies Active Allergy Reactions Criticality Noted Date Comments Aloe Rash 05/10/2012 Prednisone 08/10/2020 Heightened anxiety. SOB and palpitations. 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 09/21/2015 documented as of this encounter (statuses as of 05/20/2023) Immunizations Name Administration Dates Next Due COVID-19 mRNA, LNP-s, No Pre serve, 2-Dose Series (Moderna) 04/17/2020,03/20/2020 COVID-19 mRNA, LNP-s, No Pre serve, 2-Dose Series (Pfizer) 01/01/2021 Hepatitis B, 20+ yrs 09/29/2014 PPD 10/06/2014,09/29/2014 Pneumococcal Conjugate Vacci ne, 20-valent ([id number]) 12/28/2021 Pneumococcal Polysaccharide PPV23 (Pneumovax) 02/24/2014 Seasonal [...] State [place] Sneed [address] [place] [address] Rosita Sanchez PA-C [address] [place] [address] Scheduled Procedures Name Priority Associated Diagnoses Date/Ti [...] filedocumented as of this encounter Care Teams Supervisor Edging Relationship Specialty Start Date End Date Kenisha Zepeda DO [address] [place] [address] PCP - General Family Medicine 09/05/18 documented as of this encounter
--- OUTSIDE RECORDS SUMMARY | 2023-08-11 11:54 | External Medical Summary | Summary of Care ---
Author Name Unknown Organization [facility] Address [address] [place] [address] Phone [phone] Care Team Providers Care Lecturer Of Portuguese Name Role Phone Kenisha Zepeda DO Primary Care Provider Encounter Details Date Type Department Care Team (Late st Contact Info) Description 03/01/[address] [facility] 200 [facility] [place] [id number] [facility] DO [facility] [address] Allergies Active Allergy Reactions Criticality [...] Diverticulitis of colon 10/02/2020 [facility] sites without rheumatoid factor 09/21/2015 Recurrent [...] PPD 10/06/2014,09/29/2014 Pneumococcal Conjugate Vacci ne, 20-valent ([id number]) 12/28/2021 Pneumococcal Polysaccharide PPV23 (Pneumovax) 02/24/2014 Seasonal [...] Upcoming Encounters Date Type Department Care Team ([facility] st Contact Info) Description 04/21/2023 8:45 AM EST Cardiac Studies Cardiac Studies, [place] [address] [place], [place] [phone] Scheduled Procedures Name Priority Associated Diagnoses Date/Ti [...] CT (IMAGES ONLY, NO REPORT) Routine 03/01/2023 1:20 PM EST documented in this encounter Results * RADIOLOGY EXAM - CT (IMAGES ONLY, NO REPORT) (03/01/2023 1:20 PM EST) 03/01/2023 1:10 PM EST Narrative Scheduling, Silent - 03/17/2023 4:29 PM EST This is an imaging study not interpreted or resulted by a [facility] or [employer] contracted radiologist. Kenisha Zepeda DO RAD CT documented in this encounter Care Teams Lecturer Of Portuguese Relationship Specialty Start Date End Date Kenisha Zepeda DO 200 [place] [address] PCP - General Family Medicine 09/05/18 documented as of this encounter
--- OUTSIDE RECORDS SUMMARY | 2023-08-11 11:54 | External Medical Summary | Summary of Care ---
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 Kenisha Zepeda DO RAD CT documented in this encounter Care Teams Racking Machine Operator Relationship Specialty Start Date End Date Kenisha Zepeda DO 200 [facility] [place] [place] [address] PCP - General Family Medicine 09/05/18 documented as of this encounter
--- OUTSIDE RECORDS SUMMARY | 2023-08-11 11:54 | External Medical Summary | Summary of Care ---
Author Name Unknown Organization [facility] Address [address] [place] [address] Phone [phone] Care Team Providers Care Network Technician Name Role Phone Kenisha Zepeda DO Primary Care Provider Encounter Details Date Type Department Care Team (Late st Contact Info) Description 03/01/2023 Orders Only Family Practice [facility] 200 [facility] [place] [id number] Kenisha Zepeda DO [facility] [address] Allergies Active Allergy Reactions Criticality Noted [...] Diverticulitis of colon 10/02/[address] [facility] sites without rheumatoid factor 09/21/2015 [...] PPD 10/06/2014,09/29/2014 Pneumococcal Conjugate Vacci ne, 20-valent ([id number]) 12/28/2021 Pneumococcal Polysaccharide PPV23 (Pneumovax) 02/24/2014 Seasonal [...] Upcoming Encounters Date Type Department Care Team ([facility] st Contact Info) Description 04/21/2023 8:45 AM EST Cardiac Studies Cardiac Studies, [place] [address] [place], [place] [phone] Scheduled Procedures Name Priority Associated Diagnoses Date/Ti [...] interpreted or resulted by a [facility] or [email or web address] contracted radiologist. Kenisha Zepeda DO RAD CT documented in this encounter Care Teams Network Technician Relationship Specialty Start Date End Date Kenisha Zepeda DO [address] [place] [address] [place] [address] PCP - General Family Medicine 09/05/18 documented as of this encounter
--- OUTSIDE RECORDS SUMMARY | 2023-08-11 11:54 | External Medical Summary | Summary of Care ---
Author Name Unknown Organization [facility] Address [address] [place] [address] Phone [phone] Care Team Providers Care Post Partum Nurse Name Role Phone Kenisha Zepeda DO Primary Care Provider Reason for Visit * Reason Onset Date Comments Appointment 05/17/2023 Encounter Details Date Type Department Care Team (Late st Contact Info) Description 05/17/2023 Telephone Family Practice [facility] 200 [facility] [place] [address] Kenisha Zepeda DO 200 [place] [address] Appointment Allergies Active Allergy Reactions Criticality Noted [...] PPD 10/06/2014,09/29/2014 Pneumococcal Conjugate Vacci ne, 20-valent ([id number]) 12/28/2021 Pneumococcal Polysaccharide PPV23 (Pneumovax) 02/24/2014 Seasonal [...] encounter Miscellaneous Notes * Telephone Encounter - Trinh Daniels LPN - 05/22/2023 2:38 PM EDT Patient was seen at * Telephone Encounter - Brandy Pierson OSA [...] scheduling . Thank you, Gerda Delacruz CPhT Psych Sales Specialist II [facility] (Formerly [...] filedocumented as of this encounter Care Teams Post Partum Nurse Relationship Specialty Start Date End Date Kenisha Zepeda DO [address] [place] [address] PCP - General Family Medicine 09/05/18 documented as of this encounter
--- OUTSIDE RECORDS SUMMARY | 2023-08-11 11:54 | External Medical Summary | Summary of Care ---
Author Name Unknown Organization [facility] Address [address] [place] [address] Phone [phone] Care Team Providers Care It Business Systems Analyst Name Role Phone Kenisha Zepeda Primary Care Provider Reason for Visit * Reason Onset Date Comments MyCode Consent 05/22/2023 Encounter Details Date Type Department Care Team (Late st Contact Info) Description 05/22/2023 Orders Only Outcomes Research Department [address] [place] [address] Maria Del Carmen Olivera CHRA MyCode Research Other*[id number]* Allergies Active Allergy Reactions Criticality Noted Date [...] of colon 10/02/2020 [facility]oid [facility] without rheumatoid factor 09/21/2015 [...] PPD 10/06/2014,09/29/2014 Pneumococcal Conjugate Vacci ne, 20-valent ([id number]) 12/28/2021 Pneumococcal Polysaccharide PPV23 (Pneumovax) 02/24/2014 Seasonal [...] as of this encounter Progress Notes * Maria Del Carmen Olivera CHRA - 05/22/2023 2:22 PM EDT [employer] Consent Documentation Adrienne Sanchez provided consent/authorization to participate in the [employer] Project. documented in this encounter Plan of Treatment Scheduled Orders Name Type Priority Associated Diagnoses Orde r Schedule MYCODE INITIAL ADULT Lab Routine MyCode Research Other*[id number] Expected: 05/22/2023 (Approximate), Expires: 06/10/2024 Scheduled Procedures Name Priority Associated Diagnoses Date/Ti [...] as of this encounter Visit Diagnoses Diagnosis MyCode Research Other*[id number]- Primary documented in this encounter Care Teams It Business Systems Analyst Relationship Specialty Start Date End Date Kenisha Zepeda DO [address] [place] [address] PCP - General Family Medicine 09/05/18 documented as of this encounter
--- OUTSIDE RECORDS SUMMARY | 2023-08-11 11:54 | External Medical Summary | Summary of Care ---
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 Kenisha Zepeda DO RAD MRI-MRA documented in this encounter Care Teams Architectural Draftsperson Relationship Specialty Start Date End Date Kenisha Zepeda DO [address] [place] [address] PCP - General Family Medicine 09/05/18 documented as of this encounter
--- OUTSIDE RECORDS SUMMARY | 2023-08-11 11:54 | External Medical Summary | Summary of Care ---
Author Name Unknown Organization [facility] Address [address] [place] [address] Phone [phone] Care Team Providers Care Federal Mediator Name Role Phone Katelyn De Faith Primary Care Provider Reason for Referral * Evaluate & Treat - Unlimited Visits (Within 10 days (routine)) - Pending Review Specialty Diagnoses / Procedures Referred By Nandini gonsales Referred To Contact General Surgery Diagnoses Acute LUQ pain Left flank pain History of diverticulitis of colon Zeina Woodward PA-C [address] [address] Referral ID Status Reason Start Date Expiration Date Visits Requested Visits Authorized [id number] Pending Review Specialty Services Required 05/18/2023 999 [...] 05/18/2023 11:45 AM EDT Convenient Care Visit [facility] [address] [place] [address] Zeina Woodward PA-C [address] [address] Acute LUQ pain*; Left flank pain; History [...] of colon 10/02/[address] 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 [...] Care Team (Late st Contact Info) Description 05/18/2023 12:40 PM EDT Imaging Radiology [address] [facility] [place] [address] Arrived 05/22/2023 2:20 PM EDT Office Visit Family Practice [facility] 200 [facility] [place] [address] Rosita Sanchez PA-C 200 [facility] [place] [address] Scheduled Orders Name Type Priority Associated Diagnoses Orde r Schedule XR ABDOMEN 1 VIEW Medical Imaging STAT Acute LUQ pain Left flank pain Ordered: 05/18/2023 MICROSCOPIC EXAM, URINE Lab Routine Acute LUQ [...] Cancer Screening 12/30/2023 Pap Smear 12/30/2023 12/29/2020, 02/0 04/2016 (Done elsewhere), 10/18/2011 Mammogram 03/03/2024 03/03/2023, [...] Procedure Name Priority Date/Time Associated Diagnosis Comments URINALYSIS, POINT OF CARE (ENTER/EDIT) Routine 05/18/2023 Acute LUQ pain Left flank pain documented in this encounter Results * URINALYSIS, POINT OF CARE (ENTER/EDIT) (05/18/2023) Color, Urine Yellow Yellow or Light Yellow Clarity, Urine Clear Clear Glucose, Urine Negative Negative mg/dL Bilirubin, Urine Negative Negative Ketone, Urine Negative Negative mg/dL Specific [place], Urine 1.025 1.003 - 1.030 Blood, Urine [...] system documented in this encounter Care Teams Federal Mediator Relationship Specialty Start Date End Date Kenisha Zepeda DO [facility] [place] [address] PCP - General Family Medicine 09/05/18 documented as of this encounter
--- OUTSIDE RECORDS SUMMARY | 2023-08-11 11:54 | External Medical Summary | Summary of Care ---
Author Name Unknown Organization [facility] Address [address] [place] [address] Phone [phone] Care Team Providers Care Office Technologist Name Role Phone Kenisha Zepeda Primary Care Provider Encounter Details Date Type Department Care Team (Latest Contact Info) Description 03/01/2023 1:10 PM EST - 03/01/2023 1:14 PM EST Hospital Encounter Radiology Film File [address] [place] [address] Discharge Disposition: Home - Self [...] Diverticulitis of colon 10/02/2020 Rheumatoid arthritis of [facility] sites without rheumatoid factor 09/21/2015 Recurrent [...] PPD 10/06/2014,09/29/2014 Pneumococcal Conjugate Vacci ne, 20-valent ([id number]) 12/28/2021 Pneumococcal Polysaccharide PPV23 (Pneumovax) 02/24/2014 Seasonal [...] 8:45 AM EST Cardiac Studies Cardiac Studies, [place] [address] [place] [address] Scheduled Procedures Name Priority Associated Diagnoses Date/Ti [...] study not interpreted or resulted by a [employer] or [employer] contracted radiologist. Kenisha Zepeda DO RAD CT documented in this encounter Care Teams Office Technologist Relationship Specialty Start Date End Date Kenisha Zepeda DO 200 [facility] [place] [address] PCP - General Family Medicine 09/05/18 documented as of this encounter
--- OUTSIDE RECORDS SUMMARY | 2023-08-11 11:55 | External Medical Summary | Summary of Care ---
Author Name Unknown Organization [facility] Address [address] [place] [address] Phone [phone] Care Team Providers Care Religious Healer Name Role Phone Kenisha Zepeda DO Primary Care Provider Encounter Details Date Type Department Care Team (Late st Contact Info) Description 03/09/2023 Telephone Family Practice [facility] [address] [place] [address] Kenisha Zepeda DO [facility] [address] Allergies Active Allergy Reactions Criticality Noted Date Comments Aloe Rash 05/10/2012 Prednisone 08/10/2020 Heightened anxiety. SOB and palpitations. 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 09/21/2015 documented as of this encounter (statuses as of 03/09/2023) Immunizations Name Administration Dates Next Due COVID-19 mRNA, LNP-s, No Pre serve, 2-Dose Series (Moderna) 04/17/2020,03/20/2020 COVID-19 mRNA, LNP-s, No Pre serve, 2-Dose Series (Pfizer) 01/01/2021 Hepatitis B, 20+ yrs 09/29/2014 PPD 10/06/2014,09/29/2014 Pneumococcal Conjugate Vacci ne, 20-valent ([id number]) 12/28/2021 Pneumococcal Polysaccharide PPV23 (Pneumovax) 02/24/2014 Seasonal [...] encounter Miscellaneous Notes * Telephone Encounter - Ca Cunha OSA - 03/09/2023 1:30 PM EST Saw message that pt wanted to be seen in the [facility] but no referral in chart, LMOM to advise pt that she will need a specific referral for the [facility] center documented in this encounter Plan of Treatment Upcoming Encounters Date Type Department Care Team (Late st Contact Info) Description 03/10/2023 4:20 PM EST Office Visit Neurology [facility] [address] [facility] [place] [address] Zena Cardoso MD [address] [facility] [place] [address] 04/21/2023 8:45 AM EST Cardiac Studies Cardiac Studies[address] [id number] Scheduled Procedures Name Priority Associated Diagnoses Date/Ti [...] Cancer Screening 12/30/2023 Pap Smear 12/30/2023 12/29/2020, 0204/2016 (Done elsewhere), 10/18/2011 Mammogram 03/03/2024 03/03/2023, 07/2022, [...] filedocumented as of this encounter Care Teams Religious Healer Relationship Specialty Start Date End Date Kenisha Zepeda DO [address] [place] [address] PCP - General Family Medicine 09/05/18 documented as of this encounter
--- OUTSIDE RECORDS SUMMARY | 2023-08-11 11:55 | External Medical Summary | Summary of Care ---
Author Name Unknown Organization [facility] Address [address] [place] [address] Phone [phone] Care Team Providers Care Mushroom Growing Supervisor Name Role Phone Kenisha Zepeda Primary Care Provider Reason for Visit * Reason Onset Date Comments Appointment 03/10/2023 Encounter Details Date Type Department Care Team (Late st Contact Info) Description 03/10/2023 Telephone Neurology [facility] [address] [facility] [place] [address] Zena Cardoso MD [address] [place] [facility] [place] [address] Appointment Allergies Active Allergy Reactions Criticality Noted Date Comments Aloe Rash 05/10/2012 Prednisone 08/10/2020 Heightened anxiety. SOB and palpitations. 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 09/21/2015 documented as of this encounter (statuses as of 03/10/2023) Immunizations Name Administration Dates Next Due COVID-19 mRNA, LNP-s, No Pre serve, 2-Dose Series (Moderna) 04/17/2020,03/20/2020 COVID-19 mRNA, LNP-s, No Pre serve, 2-Dose Series (Pfizer) 01/01/2021 Hepatitis B, 20+ yrs 09/29/2014 PPD 10/06/2014,09/29/2014 Pneumococcal Conjugate Vacci ne, 20-valent ([id number]) 12/28/2021 Pneumococcal Polysaccharide PPV23 (Pneumovax) 02/24/2014 Seasonal [...] encounter Miscellaneous Notes * Telephone Encounter - Oralia Bello, MED ASSIST - 03/10/2023 9:[address] Cardoso's request- called pt to see if she wanted to come in earlier after cancellation at 1:40 pm. Let v/m and offered appt. Put pt on for 1:40 opening and left pt on original scheduled appt. documented in this encounter Plan of Treatment Upcoming Encounters Date Type Department Care Team (Late st Contact Info) Description 03/10/2023 1:40 PM EST Office Visit Neurology [facility] [address] [facility] [place] [address] Zena Cardoso MD [address] [facility] [place] [address] 03/10/2023 4:20 PM EST Office Visit Neurology [facility] [address] [facility] [place] [address] Zena Cardoso MD [address] [facility] [place] [address] 04/21/2023 8:45 AM EST Cardiac Studies Cardiac Studies, [address] [id number] Scheduled Procedures Name Priority Associated Diagnoses Date/Ti [...] filedocumented as of this encounter Care Teams Mushroom Growing Supervisor Relationship Specialty Start Date End Date Kenisha Zepeda DO [address] [place] [address] PCP - General Family Medicine 09/05/18 documented as of this encounter
--- OUTSIDE RECORDS SUMMARY | 2023-08-11 11:55 | External Medical Summary | Summary of Care ---
Author Name Unknown Organization [facility] Address [address] [place] [address] Phone [phone] Care Team Providers Care Night Supervisor Name Role Phone Kenisha Zepeda Primary Care Provider Reason for Visit * Reason Onset Date Comments Appointment 03/10/2023 Encounter Details Date Type Department Care Team (Late st Contact Info) Description 03/10/[address] [facility] [address] [facility] [place] [address] Zena Cardoso MD [address] [facility] [place] [address] Appointment Allergies Active Allergy Reactions Criticality Noted [...] PPD 10/06/2014,09/29/2014 Pneumococcal Conjugate Vacci ne, 20-valent ([id number]) 12/28/2021 Pneumococcal Polysaccharide PPV23 (Pneumovax) 02/24/2014 Seasonal [...] 03/10/2023 1:40 PM EST Office Visit Neurology [facility] [address] [facility] [place] [address] Zena Cardoso MD [address] [facility] [place] [address] 03/10/2023 4:20 PM EST Office Visit Neurology [facility] [address] [facility] [place] [address] Zena Cardoso MD [address] [facility] [place] [address] 04/21/2023 8:45 AM EST Cardiac Studies Cardiac Studies, [address] [id number] Scheduled Procedures Name Priority Associated Diagnoses Date/Ti [...] filedocumented as of this encounter Care Teams Night Supervisor Relationship Specialty Start Date End Date Kenisha Zepeda DO [address] [place] [address] PCP - General Family Medicine 09/05/18 documented as of this encounter
--- OUTSIDE RECORDS SUMMARY | 2023-08-11 11:55 | External Medical Summary | Summary of Care ---
Author Name Unknown Organization [facility] Address [address] [place] [address] Phone [phone] Care Team Providers Care Control Electrician Name Role Phone Damienosmany Deeugenia Cuevas Primary Care Provider Reason for Referral * Evaluate & Treat - Unlimited Visits (Within 30 days (routine)) - Pending Review Specialty Diagnoses / Procedures Referred By Nandini gonsales Referred To Contact Physical Therapy / Physical Medicine And Rehab Diagnoses Intractable back pain Zena Cardoso MD [address] [place] [address] Referral ID Status Reason Start Date Expiration Date Visits Requested Visits Authorized [id number] Pending Review Specialty Services Required 03/10/[phone] Question Answer Referral Priority Within 30 days (routine) Where should this appointment be scheduled? Sandie Comments Back pain subjective lle weakness, eval and treat Reason for Visit * Reason Comments NEW PATIENT Encounter Details Date Type Department Care Team (Late st Contact Info) Description 03/10/2023 1:40 PM EST [facility] [address] [place] [address] Zena Cardoso MD 200 [facility] [place] [address] Intractable back pain*; Benign paroxysmal positional vertigo, unspecified laterality Allergies Active Allergy Reactions Criticality Noted Date [...] Diverticulitis of colon 10/02/2020 Rheumatoid arthritis of [facility] sites without rheumatoid factor 09/21/2015 Recurrent [...] PPD 10/06/2014,09/29/2014 Pneumococcal Conjugate Vacci ne, 20-valent ([id number]) 12/28/2021 Pneumococcal Polysaccharide PPV23 (Pneumovax) 02/24/2014 Seasonal Influenza, PF, 6 M & above, IM , (FluLaval or Fluzone) 11/18/2021,02/01/2018,12/19/2016 Seasonal Influenza, Quadriva lent, No Preserve, Mdck 11/17/2019,12/05/2018 Seasonal Influenza, Split, I IV3, With Preserve, Inj 12/27/2015,11/08/2013,02/05/2013 TDAP (age 10 and older)(Boostrix) 12/28/2021,08/2010 documented as of this encounter Social History Tobacco Use Types Packs/Day Years Used Date Smoking Tobacco: Former Cigarettes 0.3 20 Q uit: 2021 Smokeless Tobacco: Never Tobacco Cessation:Counseling Given: [...] Sign Reading Time Taken Comments Blood Pressure 104/70 03/10/2023 1:37 PM EST Pulse 87 03/10/2023 1:37 PM EST Temperature 36.8 C (98.3 F) 03/10/2023 1:37 PM ES T Respiratory Rate 16 03/10/2023 1:37 PM EST Oxygen Saturation 100% 03/10/2023 1:37 PM EST Inhaled Oxygen Concentration - - Weight 75.4 kg (166 lb 3.2 oz) 03/10/2023 1:37 P M EST Height - - Body Mass Index 24.54 03/04/2023 10:50 AM EST documented in this encounter Patient Instructions * Patient Instructions* Zena Cardoso MD - 03/10/2023 2:07 PM EST documented in this encounter Progress Notes * Zena Cardoso MD - 03/10/2023 2:25 PM EST CLINIC NOTES Neurology [facility] [place] [address] [place] [address] Adrienne Sanchez : 1975 NEUROLOGY OUTPATIENT NOTE 03/10/2023 HISTORY: The patient is referred for consultation by Dr. Zepeda and Mason who will be receiving a copy of this note. Reason for consultation dizziness . Patient is a 47-year-old right-handed female who has episodically had vertigo since her 20s. She lived in [place] in a 20s and was wrists referred to balance Clinic at that time where she had ENG testing. She does not recall the results. Her father and aunt have vertigo but not necessarily Meniere's disease. New line 9 days ago she spontaneously developed an episode she reports fairly continuous vertigo which was not worse with movement and was worse if she concentrated on things. There was ear pressure and non-pulsatile ringing. New line she has a history of migraines without vertigo. These headaches will more global and dull. There was no nausea vomiting. She felt random stinging in the extremities and she is felt that the left leg is been somewhat weak. She has nonradiating back pain No incontinence of bowel or bladder no neck pain or Lhermitte's phenomenon. She was seen at [facility] where she had an MRI the brain and CTA of head and neck which were said to be unremarkable. She was given meclizine and was discharged. She has been referred to physical therapy as well as ENT she has not yet been seen Past Medical History: Diagnosis Date Vertigo intermittent wtih travel. Patient Active Problem List Diagnosis Code Migraine variant G43.809 Genital warts A63.0 ADVANCE DIRECTIVE INFORMATION Recurrent iritis of right eye H20.021 Rheumatoid arthritis of multiple sites without rheumatoid factor (HCC) M06.09 Diverticulitis of colon K57.32 Past Surgical History: Procedure Laterality Date COLONOSCOPY, DIAGNOSTIC (RECTUM) 12/22/2021 benign adenomatous polyp, diverticulosis, repeat 5 yrs COLONOSCOPY FLEXIBLE PROXIMAL DIAGNOSTIC performed by Helen Dover MD at ENDOSCOPY [facility] MISCELLANEOUS ORDER ([facility] ONLY) benign tumor removed from knee in college [place] DELIVERY ONLY Social History Socioeconomic History Marital status: Spouse name: Not on file Number of children: 2 Years of education: Not on file Highest education level: Not on file Occupational History 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 - [employer] Tobacco Use Smoking status: Former Packs/day: 0.25 Years: 20.00 Additional pack years: 0.00 Total pack years: 5.00 Types: Cigarettes Quit date: 2021 Years since quittin.0 Smokeless tobacco: Never Tobacco comments: under 10 cigs a day Vaping Use Vaping Use: Every day Substances: Nicotine Substance and Sexual Activity Alcohol use: Yes Alcohol/week: 1.7 standard drinks of alcohol Types: 1 12 oz of beer, 1 5 oz of wine per week Comment: occasional Drug use: No Sexual activity: Not Currently Partners: Male control/protection: Condom Other Topics Concern Service Not Asked Blood Transfusions Not Asked Caffeine Concern Not Asked Occupational Exposure Not Asked Hobby Hazards Not Asked Sleep Concern Not Asked Stress Concern Not Asked Weight Concern Not Asked Special Diet Not Asked Back Care Not Asked Exercise Not Asked Bike Helmet Not Asked Seat Belt Yes Self-Exams Not Asked Social History Narrative Not on file Social Determinants of Health Financial Resource Strain: Not on file Food Insecurity: No Food Insecurity (03/04/2023) Hunger Vital Sign Worried About Running Out of Food in the Last Year: Never true Ran Out of Food in the Last Year: Never true Transportation Needs: Not on file Physical Activity: Not on file Stress: Not on file Social Connections: Not on file Intimate Partner Violence: Not on file Housing Stability: Not on file Family History Problem Relation Age of Onset No Past Hx Mother Other (sleep apnea) Mother No Past Hx Father Epilepsy Father Diabetes Brother Lung cancer Brother Diabetes Brother type 1 Heart Disorder Grandfather (Maternal) Stroke Grandmother (Paternal) Migraines Daughter Breast Cancer Aunt (Maternal) Current Outpatient Medications Medication Sig Dispense Refill MULTIVITAMIN/MINERALS 27-1 MG PO CAPS twice daily diphenhydrAMINE HCl 25 MG Oral Capsule (Benadryl) Take 1 Capsule by mouth every 6 hours as needed for Itching (allergy symptoms). Takes a few times per week Meclizine HCl 25 MG Oral Tablet (Antivert) 1 Tablet. Melatonin 3 MG Oral Tablet 3 Tablets. No current facility-administered medications for this visit. Review of patient's allergies indicates: Allergen Reactions Aloe Rash Prednisone Heightened anxiety. SOB and palpitations. Results for orders placed or performed in visit on 04/17/14 CBC Result Value Ref Range WBC 6.99 4.00 - 10.80 K/uL RBC 4.42 3.85 - 5.15 M/uL HGB 12.9 12.0 - 15.3 g/dL HCT 39.4 36.0 - 45.2 % MCV 89.1 81.5 - 97.5 fL MCH 29.2 27.0 - 34.0 pg MCHC 32.7 32.0 - 36.0 g/dL RDW 13.6 11.5 - 15.5 % PLT 301 140 - 400 K/uL MPV 9.8 6.6 - 11.1 fL No results found for: "HEMOGLOBIN A1C" Lab Results Component Value Date/Time TSH - [facility] 1.89 03/25/2016 10:35 AM TSH - [facility] 2.08 04/17/2014 11:03 AM DARIO ONEAL SCREEN Date Value Ref Range Status 07/06/2015 NEGATIVE Final Results for orders placed or performed in visit on 07/13/21 VITAMIN B12 Result Value Ref Range Vitamin B12 381 232-1,245 pg/mL No results found for: "WSIK09PMQ0" No results found for: "[id number]" No results found for: "[id number]" No results found for: "25OHVITAMIND" Vitamin D Level Interpretation deficient: <20 ng/ml insufficient: 20-30 ng/ml normal: 31-100 ng/ml REVIEW OF SYSTEMS: As above PHYSICAL EXAM: BP 104/70 | Pulse 87 | Temp 36.8 C (98.3 F) (Tympanic) | Resp 16 | Wt 75.4 kg (166 lb 3.2 oz) | SpO2 100% | BMI 24.54 kg/m | BSA 1.92 m Well-developed female in no distress normal speech and language affect appropriate no carotid bruits no heart murmurs heart is regular rate rhythm. No temporal tenderness no sinus tenderness. Provocative head maneuvers are negative . Gonzalez TRinne are nonlateralizing air conduction greater than boneprovocative head maneuvers negative. Pupils are equal round reactive to light optic nerves are unremarkable normal eric motility facial sensation and symmetry tongue midline speech non dysarthric. Straight leg raising is negative strength is full the left ankle jerk may be mildly depressed compared to right toes are downgoing no sensory loss to vibration light touch or temperature [id number] normal gait tandem Romberg unremarkable IMPRESSION: Given that this patient had 3 days of vertigo and imaging was normal it is unlikely central and basis additionally I do not feel that the random stinging or sense that the left leg is weak is related to a brain event. Given that there is some ear pressure and ringing recommend ENT evaluation agree with physical therapy. I suppose this could be a migrainous accompaniment but that has not been how it has presented itself in this patient historically. Will review MRI brain and CTA head and neck Subjective sense of left leg weakness chronic back pain recommend physical therapy with return to see me if she continues to feel that her left leg is weak. Otherwise return as needed Zena Cardoso MD 03/10/2023 2:25 PM documented in this encounter Nursing Notes * Oralia Bello MED ASSIST - 03/10/2023 1:36 PM EST Chief Complaint Patient presents with NEW PATIENT documented in this encounter Plan of Treatment Upcoming Encounters Date Type Department Care Team (Late st Contact Info) Description 03/10/2023 4:20 PM EST Office Visit Neurology [facility] [place] [address] [facility] [place] [address] Zena Cardoso MD [address] [place] [address] 04/21/2023 8:45 AM EST Cardiac Studies Cardiac Studies, [place] [address] [place] [address] Scheduled Procedures Name Priority Associated Diagnoses Date/Ti me COLONOSCOPY FLEXIBLE PROXIMAL DIAGNOSTIC Recall History of colon polyps Scheduled Referrals Name Type Priority Associated Diagnoses Orde r Schedule PHYSICAL THERAPY REFERRAL OP Referral Within 30 days (routine) Intractable back pain Ordered: 03/10/2023 Health Maintenance Due Date Last Done Comments [...] as of this encounter Visit Diagnoses Diagnosis Intractable back pain- Primary Backache, unspecified Benign paroxysmal positional vertigo, unspecified laterality documented in this encounter Care Teams Control Electrician Relationship Specialty Start Date End Date Kenisha Zepeda DO [address] [place] [address] PCP - General Family Medicine 09/05/18 documented as of this encounter
--- OUTSIDE RECORDS SUMMARY | 2023-08-11 11:55 | External Medical Summary | Summary of Care ---
Author Name Unknown Organization [facility] Address [address] [place] [address] Phone [phone] Care Team Providers Care Smalltalk Developer Name Role Phone DamienRochelle ceroneugenia Cuevas Primary Care Provider Reason for Referral * Evaluate & Treat - Unlimited Visits (Within 30 days (routine)) - Pending Review Specialty Diagnoses / Procedures Referred By Contac t Referred To Contact Neurology Diagnoses Dizziness Arline Cuevas MD [address] [place] [address] Referral ID Status Reason Start Date Expiration Date Visits Requested Visits Authorized [id number] Pending Review Specialty Services Required 03/04/[phone] Question Answer Referral Priority Within 30 days (routine) Where should this appointment be scheduled? [facility]ST[facility] Headache Has the patient tried 1 abortive and 1 preventative medication? No Comments Constant dizziness. ER work up was negative. Thanks. * Evaluate & Treat - Unlimited Visits (Within 30 days (routine)) - Pending Review Specialty Diagnoses / Procedures Referred By Contac t Referred To Contact Physical Therapy / Physical Medicine And Rehab Diagnoses Dizziness Arline Cuevas MD [address] [place] [address] Referral ID Status Reason Start Date Expiration Date Visits Requested Visits Authorized [id number] Pending Review Specialty Services Required 03/04/[phone] Question Answer Referral Priority Within 30 days (routine) Where should this appointment be scheduled? [facility] Constant dizziness. Thanks. * Precert (Within 10 days (routine)) - Pending Review Specialty Diagnoses / Procedures Referred By Nandini gonsales Referred To Contact Cardiac Studies Diagnoses Dizziness Procedures ECHO, COMPLETE (2D), TRANS-THORACIC Arline Cuevas MD [address] [place] [address] Referral ID Status Reason Start Date Expiration Date Visits Requested Visits Authorized [id number] Pending Review Precert 03/04/[phone] * Evaluate & Treat - Unlimited Visits (Within 10 days (routine)) - Pending Review Specialty Diagnoses / Procedures Referred By Nandini gonsales Referred To Contact Otolaryngology Diagnoses Dizziness Arline Cuevas MD [address] [place] [address] Referral ID Status Reason Start Date Expiration Date Visits Requested Visits Authorized [id number] Pending Review Specialty Services Required 03/04/[phone] Question Answer Referral Priority Within 10 days (routine) Where should this appointment be scheduled? [facility] Reason for Referral Ear Conditions Specific Condition: Dizzy/Vertigo/imbalance Do not place this order. For Dizzy/Vertigo/Imbalance conditions, place the [facility] Referral OP [[id number]]. Acknowledge Comments Worsening dizziness, tinnitus. Thanks. Reason for Visit * Reason Comments Headache Encounter Details Date Type Department Care Team (Late st Contact Info) Description 03/04/2023 10:40 AM EST Office Visit Family Practice [facility] [address] [facility] [place] [id number] Arline Cuevas MD [address] [place] [address] Dizziness* Allergies Active Allergy Reactions Criticality Noted Date Comments Aloe Rash 05/10/2012 Prednisone 08/10/2020 Heightened anxiety. SOB and palpitations. 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 Takes a few times per week 0 Active Meclizine HCl 25 MG Oral Tablet (Antivert) 1 Tablet. 0 03/01/2023 Active Melatonin 3 MG Oral Tablet 3 Tablets. 0 03/01/2023 Active Chantix 0.5 MG Oral Tablet (Varenicline Tartrate) Take 0.5 mg by mouth. 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 08/20/2015 09/21/2015 documented as of this encounter (statuses as of 03/04/2023) Immunizations Name Administration Dates Next Due COVID-19 mRNA, LNP-s, No Pre serve, 2-Dose Series (Moderna) 04/17/2020,03/20/2020 COVID-19 mRNA, LNP-s, No Pre serve, 2-Dose Series (Pfizer) 01/01/2021 Hepatitis B, 20+ yrs 09/29/2014 PPD 10/06/2014,09/29/2014 Pneumococcal Conjugate Vacci ne, 20-valent ([id number]) 12/28/2021 Pneumococcal Polysaccharide PPV23 (Pneumovax) 02/24/2014 Seasonal [...] Sign Reading Time Taken Comments Blood Pressure 108/70 03/04/2023 10:50 AM EST Pulse 78 03/04/2023 10:50 AM EST Temperature 36.7 C (98.1 F) 03/04/2023 10:[address] Respiratory Rate 16 03/04/2023 10:50 AM EST Oxygen Saturation 99% 03/04/2023 10:50 AM EST Inhaled Oxygen Concentration - - Weight 74.1 kg (163 lb 4.8 oz) 03/04/2023 10:50 AM EST Height 175.3 cm (5' 9") 03/04/2023 10:50 AM EST Body Mass Index 24.12 03/04/2023 10:50 AM EST documented in this encounter Progress Notes * Arline Cuevas MD - 03/04/2023 11:00 AM EST Images from the original note were not included. History of Present Illness Adrienne Sanchez is a 47 year old adult that presents for Headache Here for the acute visit: Ongoing dizziness for last 6 days and started while working at home [employer] computer. States then started tingling all over the body, some headache off an don. No visual disturbance. No recent hx of allergies, sinus issues. Denies any chestpain/sob/palpitation/swealling in the legs. denies any cough/sob/wheezing/chestpain. States have normal stress but no anxiety or depression. Able to drive, work, do laundry with meclizine as needed which helps. Some ringing in ears, no issue with hearing. Laboratory workup interpreted by myself showed normal WBC; stable electrolytes; normal troponin; normal TSH - CT head wo contrast negative for acute intracranial pathology - CTA head/neck negative - CXR negative for pneumonia or pneumothorax, per my interpretation - Patient given 25 mg PO meclizine in ER. She reports slight improvement in dizziness, but reports it is still present. - MRI brain wo contrast negative for acute pathology. Patient given IV ativan pre-MRI due to claustrophobia." Pt was instructed to follow up with her PCP. Her symptoms persist. She has no reports of chest pain, SOB, fever. Physical Exam Vitals: 03/04/23 1050 Temp: 36.7 C (98.1 F) Pulse: 78 Resp: 16 SpO2: 99% BP: 108/70 BMI: 24.1 BP Readings from Last 3 Encounters: 03/04/23 108/70 12/22/21 109/69 12/21/21 112/68 Wt Readings from Last 3 Encounters: 03/04/23 74.1 kg (163 lb 4.8 oz) 12/20/21 72.6 kg (160 lb) 12/21/21 74.3 kg (163 lb 12.8 oz) BMI Readings from Last 3 Encounters: 03/04/23 24.12 kg/m 12/20/21 23.63 kg/m 12/21/21 24.19 kg/m Ht Readings from Last 3 Encounters: 03/04/23 1.753 m (5' 9") 12/20/21 1.753 m (5' 9") 12/09/20 1.753 m (5' 9") HEENT: PERRLA, EOMI, anicteric sclera, b/l tympanic membrane is pearly white, no erythema, no pharyngeal erythema, no lymphadenopathy, neck supple CVS: RRR, no murmurs, rubs or gallops, s1 s 2normal. RESP: clear to auscultation, no wheezing or crackles EXT: no edema, cyanosis, peripheral pulses palpable bilaterally No large joint swelling, no redness, range of motion normal. Skin normal. Gait normal. Mood stable No focal weakness I have reviewed the following results: CMP and CBC Assessment and Plan Dizziness (Primary) - OTOLARYNGOLOGY REFERRAL OP - ECHO, COMPLETE (2D), TRANS-THORACIC; Future; Expected date: 03/04/2023 - PHYSICAL THERAPY REFERRAL OP - NEUROLOGY REFERRAL OP Advised meclizine as needed, flonase daily, saline spray daily. Wrap-Up Time: I spent a total of 30-39 minutes (exact time 30 mins) on the date of service in preparation, delivery, and documentation of the care provided to Adrienne Sanchez excluding any time spent in the performance of separately billed services. documented in this encounter Nursing Notes * Hiwot Sales LPN - 03/04/2023 10:49 AM EST Patient presents today for ongoing dizziness, headaches, pressure moving through her head, tinglingand burning through out her body and she said that her legs feel weak. She said that it started on Monday. documented in this encounter Plan of Treatment Upcoming Encounters Date Type Department Care Team (Late st Contact Info) Description 03/10/2023 4:20 PM EST Office Visit Neurology [facility] [address] [place] [address] Zena Cardoso MD [address] [facility] [place] [address] 04/21/2023 8:45 AM EST Cardiac Studies Cardiac Studies, [id number] [place], [place] [id number] Scheduled Orders Name Type Priority Associated Diagnoses Orde r Schedule ECHO, COMPLETE (2D), TRANS-THORACIC Echocardiology Routine Dizziness Expected: 03/04/2023, Expires: 04/04/2025 Scheduled Procedures Name Priority Associated Diagnoses Date/Ti me COLONOSCOPY FLEXIBLE PROXIMAL DIAGNOSTIC Recall History of colon polyps Scheduled Referrals Name Type Priority Associated Diagnoses Order Schedule OTOLARYNGOLOGY REFERRAL OP Referral Within 10 days (routine) Dizziness Ordered: 03/04/2023 PHYSICAL THERAPY REFERRAL OP Referral Within 30 days (routine) Dizziness Ordered: 03/04/2023 NEUROLOGY REFERRAL OP Referral Within 30 days (routine) Dizziness Ordered: 03/04/2023 Health Maintenance Due Date Last Done Comments Lipid Panel 1975 HIV Screening 10/16/1990 HPV/Co-Test 10/16/2005 Depression Screening 05/26/2018 05/26/2017 COVID-19 Vaccine ( season) 2022 01/01/2021, 04/17/2020, 03/20/2020 Influenza Vaccine (FLU shot) (#1) 2022 11/18/2021, 11/17/2019, 12/05/2018, Additional history exists Mammogram 02/25/2023 02/25/2022, 12/23, 01/21/2020, Additional history exists Cervical Cancer Screening 12/30/2023 Pap Smear 12/30/2023 12/29/2020, 04/2016 (Done elsewhere), 10/18/2011 COLONOSCOPY-EVERY 5 YRS AGES 18-100 12/22/2026 12/22/2021, [...] as of this encounter Visit Diagnoses Diagnosis Dizziness- Primary Dizziness and giddiness documented in this encounter Care Teams Smalltalk Developer Relationship Specialty Start Date End Date Kenisha Zepeda DO [address] [place] [address] PCP - General Family Medicine 09/05/18 documented as of this encounter
[2023-08-11] MEDS: FLUTICASONE PROPIONATE NA SPR 16 GM BTL SCH (13:00)
[2023-08-11] MEDS: ADVANCED PROBIOTIC 625 MG CAPSULE PO SCH (13:00)
--- NOTE | 2023-08-11 13:04 | Gastrointestinal Consultation ---
Date of Consultation August 11, 2023 Assessment & Plan (1) Diverticulitis: 47 year old female with mild diverticulitis admitted w/ failure of OP management (two courses of Augmentin, one course of Cipro/Flagyl) imaging showing mild disease without any fluid collections or perforation. Clear liquid diet Advance to low residue as tolerated Agree w/ IV ABX as ordered May use Miralax 1 capful daily If clinically improving over 24-48 hours, consider DC home w/ PO ABX Can have OP Colonoscopy in about 4-6 weeks time with her regular GI providers at [facility] Thank you for allowing us to participate in the care of this patient. Please call with any acute changes, questions or concerns. Please see addendum below with additional recommendation from my supervising physician. I spent a total of 45 minutes on the date of service in review of patient's record, and previously obtained information in person and appropriate medical visit, discussion and education of plan, with patient and/or caregiver, placing orders for tests/referral/procedures as medically necessary and documentation of pertinent clinical information in patient's medical records for their visit today. Supervising Physician Co-Signing Physician Notes I examined the patient and reviewed patient's chart , laboratory data and imaging studies. I agree with with assessment and plan of care as suggested by advanced practice provider. History of Present Illness Reason for Consultation: diverticulitis Requesting Physician: Oz Attending Physician: Radha Clinton MD History of Present Illness 47 year old female with history of diverticulitis about once yearly who is admitted through the ED for management of diverticulitis. Pt was seen and evaluated, chart reviewed. She notes symptoms started around May. Was seen by PCP, started Augmentin without imaging. Helped, symptosm returned after ABX completed. Was given another couse of Augmentin. Again symptos returned. Was traveling. had a CT this time which showed acute diverticulitis. Given course of cipro/flagyl. Improved after 24 hours of ABX but notes pain in LLQ returned Monday. Mild to start, progressed Monday and . Took last dose of Cipro/Flagyl monday and pain has been worsening since. No nausea, vomiting Tolerating PO intake. Stools are irregular but no black or bloody stools Last colon about 2 years ago at [facility] CT showing mild constipation, mild acute sigmoid colon diverticulitis Allergies Allergy/AdvReac Type Severity Reaction Status Date / Time aloe Allergy Mild RASH Verified 03/01/23 15:20 Home Medications Medication Instructions Recorded Confirmed Type multivitamin 1 tab PO QAM 11/06/17 08/11/23 History ibuprofen 200 mg tablet (Advil) 400 mg PO Q6H PRN Pain 03/01/23 08/11/23 History melatonin 3 mg tablet 5 mg PO HS PRN Sleep 03/01/23 08/11/23 History Tylenol 1 - 2 tab PO UD PRN Pain 08/11/23 08/11/23 History alprazolam 0.5 mg tablet 0.5 mg PO UD PRN travel 08/11/23 08/11/23 History aspirin 1 - 2 tab PO UD PRN Pain 08/11/23 08/11/23 History Patient History Medical History (Updated 08/11/23 @ 10:32 by Priyanka Lomax PA-C) Osteoarthritis Gout Anxiety Migraine Reactive airway disease Surgical History H/O right knee surgery BENIGN TUMOR REMOVED History of section X2 History of dilatation and curettage History of tooth extraction WISDOM TEETH Family History Brother Family history of diabetes mellitus Grandmother Family history of diabetes mellitus MATERNAL AND PATERNAL Social History Smoking Status: Former smoker Tobacco Type: Cigarettes Cigarettes Per Day: 10 A DAY; Second Hand Exposure: No; Do You Dip or Chew Tobacco: No; Hx Alcohol Use: Yes Alcohol type: hard liquor Hx Substance Use: No Preferred Language: Cameroonian Communication Ability: Effective Chief Wharfinger Required: No Beliefs That Will Affect Care: None Current Living Situation: Spouse and Family Feels Safe at Home: Yes Assistive Devices: Contacts and Glasses Review of Systems Review of Systems: All other findings negative except as noted in HPI. Physical Exam Constitutional: WD/WN, vitals as above Respiratory: normal respiratory effort, lungs clear to auscultation Cardiovascular: RRR, no murmur, no edema Gastrointestinal (Abdomen): Inspection/Auscultation: abdomen normal to inspection and normal bowel sounds Percussion/Palpation: + abdomen tender (mild w/ deep palpation) and abdomen soft Skin: no rashes, warm and dry Results & Data Vital Signs (Past 12 Hours) Vital Signs Temp Pulse Pulse Resp BP BP Pulse Ox 08/11/23 10:20 73 20 124/82 99 08/11/23 07:48 36.5 C 86 18 117/82 98 O2 Del Method 08/11/23 10:20 Room Air 08/11/23 07:48 Room Air Laboratory Results 08/11/23 08/11/23 Range/Units 09:19 08:15 WBC 6.54 (4.8-10.8) K/ul RBC 4.52 (4.20-5.40) M/uL Hgb 12.8 (12.0-16.0) g/dl Hct 38.8 (37.0-47.0) % MCV 85.8 (80.0-100.0) fL MCH 28.3 (25.0-34.0) pg MCHC 33.0 (32.0-36.0) g/dL RDW Std Deviation 40.1 (36.4-46.3) fL RDW Coeff of Daniela 12.8 (11.5-14.5) % Plt Count 277 (130-400) K/uL MPV 10.5 (9.4-12.4) fL Immature Gran % (Auto) 0.2 % Neut % (Auto) 64.3 % Lymph % (Auto) 25.1 % [place]ill % (Auto) 7.0 % Eos % (Auto) 2.8 % Baso % (Auto) 0.6 % Neut # (Auto) 4.21 (1.40-6.50) K/uL Lymph # (Auto) 1.64 (1.20-3.40) K/uL [place]ill # (Auto) 0.46 (0.11-0.59) K/uL Eos # (Auto) 0.18 (0.00-0.50) K/uL Baso # (Auto) 0.04 (0.00-0.20) K/uL Immature Gran # (Auto) 0.01 (0.01-0.20) K/uL Platelet Estimate Normal (Normal) Sodium 135 L TNP Potassium 3.7 TNP Chloride 105 (98-107) mmol/L Carbon Dioxide 24 (21-32) mmol/L Anion Gap TNP BUN 12 (6-23) mg/dl Creatinine 0.64 (0.6-1.2) mg/dl Est Cr Clr Drug Dosing 109.6 ml/min Est GFR ( Amer) 123.2 ml/min Est GFR (Non-Af Amer) 106.3 ml/min BUN/Creatinine Ratio 18.8 (10-20) Glucose 99 (70-99(Fasting)) mg/dl Calcium 9.3 (8.6-10.3) mg/dl Total Bilirubin 0.3 (0.2-1.0) mg/dl Direct Bilirubin 0.1 TNP AST 17 TNP ALT 21 (7-52) U/L Alkaline Phosphatase 48 (34-104) U/L Total Protein 7.2 (6.0-8.3) gm/dl Albumin 4.2 (3.4-5.0) gm/dl Lipase 32 (11-82) U/L PG Care Time/CCT Total # of Minutes Spent Total Time Spent with Patient: Total time spent is greater than 50% in coordination of care (as documented) at patient's floor/unit and/or counseling patient: Coding Level of Care Code 76052 OFFICE CONSULT LVL Diagnoses Diverticulitis K57.92
[2023-08-11] MEDS ORDERED: ACETAMINOPHEN 325 MG TAB PO PRN (13:34)
[2023-08-11] MEDS ORDERED: ONDANSETRON INJ 2 MG/ML 2 ML VIAL IV PRN (13:34)
[2023-08-11] MEDS: LACTATED RINGER'S 1,000 ML IV SCH (14:17)
[2023-08-11] MEDS: PIPERACILLIN/TAZOBACTAM 4.5 GM in DEXTROSE 5% MINI-B 100 ML IV SCH (17:10)
[2023-08-11] MEDS: MELATONIN 3 MG TAB PO PRN (21:35)
[2023-08-12 08:30] LABS: Hematocrit (blood only) 37.8 % (37.0-47.0); Hemoglobin 12.2 g/dl (12.0-16.0); Mean Corpuscular Hgb Conc 32.3 g/dL (32.0-36.0); Mean Corpuscular Volume 86.7 fL (80.0-100.0); Mean Platelet Volume 9.9 fL (9.4-12.4); Platelet Count 322 K/uL (130-400); RDW Coefficient of Variation 12.9 % (11.5-14.5); RDW Standard Deviation 40.4 fL (36.4-46.3); Red Blood Count 4.36 M/uL (4.20-5.40); White Blood Count 5.92 K/ul (4.8-10.8)
[2023-08-12 08:39] LABS: BUN Creatinine Ratio 12.3 (10-20); Creatinine Clr Calc Pharmacy 99.6 ml/min; Est GFR (African American) 113.7 ml/min; Est GFR (Non-African American) 98.1 ml/min
--- NOTE | 2023-08-12 14:47 | Hospitalist Progress Note ---
Date of Service August 12, 2023 Assessment & Plan (1) Diverticulitis: (2) GERD (gastroesophageal reflux disease): Plan: Diverticulitis Abdominal Pain Failed abx Outpatient Course - Pt failed outpatient antibiotics, most recently finished course of oral cipro flagyl 2 days ago. She initially had improvement in pain, and then it returned and worsened with completion of antibiotics. Currently she is afebrile without leukocytosis. CT abd is reviewed and does show mild diverticulitis, no other acute findings. - Cont zosyn IV - Advance diet - Pt had last colonoscopy 2 years ago, had 2 polyps and were benign per her report Will need outpatient colonoscopy in 4 to 6 weeks. Discussed with patient due to the recurrent nature of the diverticulitis; it would beneficial to obtain surgical evaluation as outpatient to determine whether she would be a candidate for bowel resection or not. Urinary Frequency - Check UA with urine frequency- denies other symptoms, follow culture if appears infected. DVT ppx: teds, scds Lines: PIV x 1 R arm CODE: FULL FEN/GI: full liquid diet Dispo: From home, likely to remain in the hospital x 1-2 days Please note the above document was generated using voice recognition software. It may contain grammatical, syntax or spelling errors. Any formal questions or concerns about the content, text or information contained within the body of this dictation should be directly addressed to the provider for clarification Admission and Anticipated Discharge Date Admission Date: August 11, 2023 Subjective Patient seen and examined at bedside. She is sitting up on the bed; not in distress. She reports intermittent abdominal pain; no abdominal pain at present time No nausea, vomiting. Tolerating clear liquid diet Review of Systems Review of Systems: All systems reviewed & are unremarkable except as noted in Subjective Physical Exam Physical Exam: Constitutional: comfortable; not in any distress Respiratory: normal respiratory effort, lungs clear to auscultation, no wheeze, rales, rhonchi. Normal insp/exp effort, no accessory muscle use Cardiovascular: RRR, no murmur, no edema Vessels: no JVD or carotid bruit Chest: normal inspection of chest Abdomen: normal bowel sounds, soft, nontender, no hepatosplenomegaly Musculoskeletal: no cyanosis or clubbing, extremities motor strength 5/5 Skin: no rashes, warm and dry normal turgor Results & Data Results & Data Vital Signs (Past 12 Hours) Vital Signs Temp Pulse Resp BP Pulse Ox O2 Del Method 08/12/23 07:40 Room Air 08/12/23 07:33 36.5 C 73 16 101/65 96 Room Air
[2023-08-12 17:16] LABS: Appearance Urine Clear (Clear); Bilirubin Urine Negative (Negative); Blood Urine Negative (Negative); Color Urine Yellow; Glucose Urine UA Negative (Negative); Ketones Urine Negative (Negative); Leukocyte Esterase Urine Negative (Negative); Nitrite Urine Negative (Negative); Protein Urine Negative (Negative); Specific Gravity Urine 1.005 (1.000-1.030); Urobilinogen Urine Negative (Negative)
--- NOTE | 2023-08-13 14:52 | Hospitalist Progress Note ---
Date of Service August 13, 2023 Assessment & Plan (1) Diverticulitis: (2) GERD (gastroesophageal reflux disease): Plan: Diverticulitis Abdominal Pain Failed abx Outpatient Course - Pt failed outpatient antibiotics, most recently finished course of oral cipro flagyl 2 days ago. She initially had improvement in pain, and then it returned and worsened with completion of antibiotics. Currently she is afebrile without leukocytosis. CT abd is reviewed and does show mild diverticulitis, no other acute findings. - Cont zosyn IV - Continue full liquid diet for today - Pt had last colonoscopy 2 years ago, had 2 polyps and were benign per her report Will need outpatient colonoscopy in 4 to 6 weeks. Discussed with patient due to the recurrent nature of the diverticulitis; it would beneficial to obtain surgical evaluation as outpatient to determine whether she would be a candidate for bowel resection or not. Urinary Frequency - UTI ruled out. DVT ppx: teds, scds Lines: PIV x 1 R arm CODE: FULL FEN/GI: full liquid diet Dispo: From home, likely to remain in the hospital x 1-2 days. Hospitalized for iv antiboitics Please note the above document was generated using voice recognition software. It may contain grammatical, syntax or spelling errors. Any formal questions or concerns about the content, text or information contained within the body of this dictation should be directly addressed to the provider for clarification Admission and Anticipated Discharge Date Admission Date: August 11, 2023 Subjective Patient seen and examined at bedside. She reports discomfort on her left lower abdomen; no tenderness Reports diarrhea Review of Systems Review of Systems: All systems reviewed & are unremarkable except as noted in Subjective Physical Exam Physical Exam: Constitutional: comfortable; not in any distress Respiratory: normal respiratory effort, lungs clear to auscultation, no wheeze, rales, rhonchi. Normal insp/exp effort, no accessory muscle use Cardiovascular: RRR, no murmur, no edema Vessels: no JVD or carotid bruit Chest: normal inspection of chest Abdomen: normal bowel sounds, soft, nontender, no hepatosplenomegaly Musculoskeletal: no cyanosis or clubbing, extremities motor strength 5/5 Skin: no rashes, warm and dry normal turgor Results & Data Results & Data Vital Signs (Past 12 Hours) Vital Signs Temp Pulse Resp BP Pulse Ox O2 Del Method 08/13/23 07:29 36.6 C 72 17 108/74 96 Room Air
[2023-08-14 07:09] LABS: Basophils # (auto) 0.04 K/uL (0.00-0.20); Basophils % (auto) 0.6 %; Eosinophils # (auto) 0.23 K/uL (0.00-0.50); Eosinophils % (auto) 3.4 %; Hematocrit (blood only) 37.9 % (37.0-47.0); Hemoglobin 12.3 g/dl (12.0-16.0); Immature Granulocytes # (auto) 0.02 K/uL (0.01-0.20); Immature Granulocytes % (auto) 0.3 %; Lymphocytes # (auto) 2.27 K/uL (1.20-3.40); Lymphocytes % (auto) 33.2 %; Mean Corpuscular Hemoglobin 28.6 pg (25.0-34.0); Mean Corpuscular Hgb Conc 32.5 g/dL (32.0-36.0); Mean Corpuscular Volume 88.1 fL (80.0-100.0); Mean Platelet Volume 9.7 fL (9.4-12.4); Monocytes # (auto) 0.46 K/uL (0.11-0.59); Monocytes % (auto) 6.7 %; Neutrophils # (auto) 3.82 K/uL (1.40-6.50); Neutrophils % (auto) 55.8 %; Platelet Count 315 K/uL (130-400); RDW Coefficient of Variation 12.9 % (11.5-14.5); RDW Standard Deviation 41.5 fL (36.4-46.3); White Blood Count 6.84 K/ul (4.8-10.8)
[2023-08-14 07:21] LABS: BUN Creatinine Ratio 7.7 (10-20); Creatinine Clr Calc Pharmacy 79.9 ml/min; Est GFR (African American) 87.1 ml/min; Est GFR (Non-African American) 75.1 ml/min; Potassium 3.7 mmol/L (3.5-5.1)
--- NOTE | 2023-08-14 09:53 | Discharge Summary ---
Date of Service August 14, 2023 Admission HPI Per Admitting Provider This is a 47 yo F with PMHx of diverticulitis, with recent 2 recurrent bouts of diverticulitis. Last time was in April with Augmentin (pt states she took 2 courses of Augmentin ) and then again beginning of July of josé & nelly and had a CT scan 14days ago in [place] where she was visiting family. Now presents with worsening pain despite recently finishing antibiotic course 2 days ago. She denies nausea, vomiting, fever today. Pt admits to having a cough with post nasal drip, no sore throat, within the past week and a half. She had attributed this to khloe patton outside and thought it was due to such. Pt is moving her bowels, last was this morning, no blood, soft. No nausea, vomiting. Pt admits to vaping nicotine daily. Denies alcohol, no ilicit drug use, no marijuana use. Admission Exam Per Admitting Provider GENERAL: Alert and oriented x3. NAD, on RA. HEENT: No pallor, no icterus. Pupils equal, round and reactive to light. Oral mucosa moist. NECK: No JVD, no neck masses. HEART: S1 and S2 heard. Regular rate and rhythm. No murmur, no gallop. RESPIRATORY SYSTEM: Normal AP diameter. No accessory muscle use. No wheezing, no crackles. ABDOMEN: Soft, bowel sounds present, LLQ tender x mild, no distention. CENTRAL NERVOUS SYSTEM: No facial droop. Speech is clear. Obeys simple commands. Moves extremities. EXTREMITIES: No edema, no erythema seen. Principal Diagnosis Diverticulitis Discharge Exam Neuro: AAOx4, PERRLA, no aphagia, memory changes, CNII-XII grossly intact HEENT: head normocephalic, moist mucus membranes CV: S1/S2, (-) M/G/R, (-) edema, cap refill < 3 seconds Resp: Lungs CTA in all eric. On RA GI: Abdomen slight tenderness LLQ without radiation. (-) distension. Ax4 bowel sounds, (-) CVA tenderness Musculoskeletal: 5/5 B/L UE strength, 5/5 B/L LE strength. No gait disturbance Skin: (-) rashes , (-) erythema. Psych: euthymic mood Discharge Data Allergies Allergy/AdvReac Type Severity Reaction Status Date / Time aloe Allergy Mild RASH Verified 03/01/23 15:20 Consultations 08/11/23 10:29 Consult Gastroenterology Routine 08/11/23 10:31 ED Decision to Admit Stat Ordered Studies 08/11/23 07:53 CT abd pelvis IV con only Stat Hospital Course (1) Diverticulitis: (2) GERD (gastroesophageal reflux disease): This patient failed outpatient antibiotics most recently finishing a course of p.o. Cipro and Flagyl. In the ED is CTAP revealed mild diverticulitis with no fluid collections or other acute findings. This patient was started on IV Zosyn and converted to p.o. Augmentin today, on day of discharge. Patient has had history of acute acute diverticulitis in the past and upon discharge would be beneficial to have an surgical evaluation and also follow-up with GI for a colonoscopy in 6 to 8 weeks depending on resolution of inflammation. Patient was sent home on p.o. Augmentin to complete after 6 days, probiotics, MiraLAX and Tylenol for pain. Please note the above document was generated using voice recognition software. It may contain grammatical, syntax or spelling errors. Any formal questions or concerns about the content, text or information contained within the body of this dictation should be directly addressed to the provider for clarification Total Time Total Time Spent Total Time Spent (In Minutes): I spent a total of 82 minutes coordinating, documenting, and providing care for this patient excluding time spent in the performance of separately billed services. All of the aforementioned completed while collaborating with the assigned attending physician for a full treatment plan. Please see their addendum for further details. Discharge Plan Discharge Items Patient Disposition: Home - Self-Care Reason For Visit: DIVERTICULITIS Discharge Diagnosis: Acute diverticulitis Condition on Discharge: Good Activity: Resume your previous activity Lifting: Gradually increase as tolerated Bathing: No limitations Weightbearing: Full weightbearing Non-emergency contact: Primary Care Provider Call non-emergency contact if: you have any medication questions and your symptoms worsen Follow-up/Referrals: Kenisha Zepeda DO [Primary Care Provider] - (Date & Time 08/17/2023 11:00 AM Provider Kenisha Zepeda DO Department [facility] ) Josefina Munoz CRNP [Nurse Practitioner] - (Date & Time 08/16/2023 11:00 AM Provider Josefina Munoz CRNP Department Gastroenterology, [facility] ) Diet: Low Fiber Addtl Attending Provider Instructions: You were admitted to the hospital due to mild acute diverticulitis of the distal descending/proximal sigmoid colon. You are treated with IV antibiotics during the hospitalization. You were also evaluated by GI doctor during the hospitalization. Please follow the instructions below: 1) Continue with liquid diet for 1 more day and then you can advance it to low fiber/residue diet as discussed. Please continue low fiber diet for 2 weeks and start adding fibers to the diet gradually. 2) Take MiraLAX daily as needed for constipation. 3) Take Augmentin twice a day for 6 more days. You are also prescribed probiotics with the antibiotics. You can continue to take probiotics one week after completion of antibiotic course. 4) You are prescribed Protonix 40mg daily as needed for reflux/GERD. You have TWO follow up appointments scheduled: 1. Tuesday 08/15 @ 1100 AM: Gastroenterology with JOCELYN Carrington. -Please discuss having a colonoscopy scheduled for 6-8 weeks after inflammation resolves. 2. 08/16 @ 1100 AM: PCP Dr. Zepeda -Due to the chronicity of your symptoms with diverticulitis, we would recommend proceeding with a General Surgery consultation as we discussed. This can be arranged by your PCP. [facility] is grateful to have been involved with your care. We wish you the best with your recovery. Please return to the hospital should you develop worsening abdominal pain/tenderness, fever, chills, SOB, or any other symptoms that you feel warrants emergency care. Pending Studies at Discharge: No Stand-Alone Forms: [facility] ASOCS, Smoking Cessation Medications and DC Order Prescriptions: New Advanced Probiotic 625 mg (10 billion cell) Capsule 1,250 cap PO DAILY Qty: 60 0RF pantoprazole [Protonix] 40 mg tablet,delayed release (DR/EC) 40 mg PO DAILY PRN (Reason: Reflux) Qty: 30 0RF polyethylene glycol 3350 [Miralax] 17 gram/dose powder 17 g PO DAILY PRN (Reason: constipation) Qty: 119 0RF amoxicillin-pot clavulanate 875-125 mg tablet 1 tab PO BID 7 Days Qty: 14 0RF Continued multivitamin Tablet 1 tab PO QAM melatonin 3 mg Tablet 5 mg PO HS PRN (Reason: Sleep) ibuprofen [Advil] 200 mg Tablet 400 mg PO Q6H PRN (Reason: Pain) alprazolam 0.5 mg tablet 0.5 mg PO UD PRN (Reason: travel) Rx Instructions: 1 to 2 tabs Tylenol 1 - 2 tab PO UD PRN (Reason: Pain) Rx Instructions: otc, as directed. unknown dose aspirin 1 - 2 tab PO UD PRN (Reason: Pain) Rx Instructions: otc, as directed. unknown dose Discharge Orders: Discharge Order (Routine); Ordered 08/14/23 Ordered By: Greta Lopes/Other Patient Handouts: Diverticulitis Dc, Full Liquid Diet Dc Admission Data Admit Date/Time: 08/11/23 10:29 Attending Provider: Alvino Schmid Admit Provider: Radha Clinton Primary Care Provider: Kenisha Zepeda Other Providers: Yash Patrick; Radha Clinton Other Interventions: Discharge Summary Assessment (RN) Last Done: 08/14/23 11:23 Supervising Physician Co-Signing Physician Notes Patient was walking on the hallway without any difficulty. She denied any abdominal pain or discomfort. Plan to discharge on oral antibiotics with follow-up with GI, PCP and general surgery. I have reviewed the advanced practitioner's documentation, and I agree with, and take responsibility for the plan of care I spent a total of 15 minutes coordinating, documenting, and providing care for this patient excluding time spent in the performance of separately billed services. All of the aforementioned completed while collaborating with the assigned advanced practitioner for a full treatment plan
[2023-08-14] MEDS: AMOXICILLIN/CLAVULANATE 875 MG TAB PO ONE (11:26)
== END 2023-08-14 13:31 | disposition home or self-care (01) | DRG 392 ==
LOC: ED 07:42 → SUATTDRO 10:29 → EDINP 10:29 → INTOOBSV 10:29 → EDINP 13:35 → 3N 16:08

== ENCOUNTER 2023-12-05 15:51 | Inpatient (IN) ==
[2023-12-05 17:50] LABS: Basophils # (auto) 0.03 K/uL (0.00-0.20); Basophils % (auto) 0.5 %; Eosinophils % (auto) 1.5 %; Hematocrit (blood only) 39.9 % (37.0-47.0); Hemoglobin 13.5 g/dl (12.0-16.0); Immature Granulocytes # (auto) 0.01 K/uL (0.01-0.20); Immature Granulocytes % (auto) 0.2 %; Lymphocytes # (auto) 2.19 K/uL (1.20-3.40); Lymphocytes % (auto) 33.4 %; Mean Corpuscular Hemoglobin 28.4 pg (25.0-34.0); Mean Corpuscular Hgb Conc 33.8 g/dL (32.0-36.0); Mean Platelet Volume 10.4 fL (9.4-12.4); Monocytes # (auto) 0.38 K/uL (0.11-0.59); Monocytes % (auto) 5.8 %; Neutrophils # (auto) 3.84 K/uL (1.40-6.50); Neutrophils % (auto) 58.6 %; Platelet Count 302 K/uL (130-400); RDW Coefficient of Variation 12.7 % (11.5-14.5); RDW Standard Deviation 38.4 fL (36.4-46.3); Red Blood Count 4.75 M/uL (4.20-5.40); White Blood Count 6.55 K/ul (4.8-10.8)
[2023-12-05 18:06] LABS: Albumin Globulin Ratio 1.5 (0.9-2); Albumin Level 4.8 gm/dl (3.4-5.0); BUN Creatinine Ratio 18.2 (10-20); Bilirubin,Total 0.4 mg/dl (0.2-1.0); Calcium 10.2 mg/dl (8.6-10.3); Creatinine Clr Calc Pharmacy 97.6 ml/min; Globulin 3.3 gm/dl (2.5-4.0); Potassium 3.4 mmol/L (3.5-5.1); Total Protein 8.1 gm/dl (6.0-8.3)
[2023-12-05 18:18] LABS: Magnesium 2.1 mg/dl (1.7-2.4)
--- NOTE | 2023-12-05 18:38 | Emergency Department Note ---
Impression & Plan Acute left-sided weakness, Headache, Brain fog, Dizziness ED Provider Note NAME: JAMES MASTERS AGE: 48 SEX: F : 1975 ARRIVES VIA: Walk-In INFORMANT: [Patient] ED PROVIDER(S): [Lowell Schwab MD] CHIEF COMPLAINT: TIA symptoms HISTORY OF PRESENT ILLNESS: The patient is a 48-year-old female who has had symptoms for around 2 weeks. She initially began with some lower back pain. She saw her doctor's office and was told that she had degenerative disc disease. She states that soon thereafter, she noticed a fogginess to her brain and thinking. She had a hard time concentrating. She became forgetful. She developed a headache on the right side of her head. She has noticed tingling in both lower extremities, primarily the left. Her left leg feels weak and her left thumb feels weak. She has not fallen, no trauma. No cough or cold or congestion. No fever, no urinary complaints. Her doctor's office sent her here for imaging and a thorough workup. PMHx/PSHx/Social Hx: See Below PHYSICAL EXAM: GENERAL: Patient is in no acute distress. HEENT: No acute trauma, normocephalic atraumatic, mucous membranes moist, no nasal congestion. NECK: No stridor, no adenopathy, no meningismus, trachea is midline. LUNGS: Clear to auscultation bilaterally, no wheeze, no rhonchi, breath sounds equal. HEART: Without murmurs gallops or rubs, regular rate and rhythm. ABDOMEN: Soft, nontender, no peritonitis. EXTREMITIES: No cyanosis, full range of motion of all the joints without pain or difficulty. NEUROLOGIC: Oriented x 3. No facial droop or speech slur. No upper extremity drift or cerebellar dysfunction. She does have notable weakness to her left thumb compared to the right. The patient can hold the left leg off the bed but has significant difficulty when compared to the right. Cerebellar function in both lower extremities seems intact. SKIN: No jaundice, no diaphoresis. DIFFERENTIAL DIAGNOSIS: TIA or stroke, intracranial bleeding, electrolyte imbalance, disc disease, among others. EMERGENCY DEPARTMENT PROCEDURES: MEDICAL DECISION MAKING: There is no leukocytosis or concerning anemia. There is a normal platelet count. No coagulopathy. Potassium is slightly low but not in need of emergent correction. There was no renal failure. No concerning liver enzyme elevation. Urinalysis showed potential early infection versus some contamination. Brain CT showed no acute bleed or mass effect. ECG showed a normal sinus rhythm, no acute ischemia, no dysrhythmia. Chest x-ray did not show pneumonia or cardiomegaly. On exam, the patient did have some weakness noted to her left lower extremity. She was not febrile or toxic. The patient presents with neurologic complaints ongoing for several weeks. They seem to be worsening. Stroke, MS or even transverse myelitis are considerations. Given the left leg weakness and back pain complaints a few weeks ago, lumbar disc herniation is also a concern. I do think further workup is warranted. She requires a hospital stay for this to be performed. She would benefit from MRI imaging and a neurology consult. I spoke with the patient and case management, the on-call hospitalist was consulted. Prior/Outside records/notes reviewed: None ECG per my interpretation: Indication was possible stroke. The ECG shows a normal sinus rhythm with a rate of 64. There is no ST elevation, no PVCs. QTc is 392. Continuous Cardiac Monitoring per my interpretation: An order was placed for continuous cardiac monitoring. The monitor shows a rate of 77 with normal sinus rhythm. Imaging/x-ray results per my interpretation: Chest x-ray does not show mediastinal widening, pneumonia or pneumothorax. Chronic Medical/Social conditions affecting care: None Care/Management discussed with: Case management, the on-call hospitalist. Level of care consideration(s): After review of the information above and other included data: --I believe the patient requires escalation of care to admission DISPOSITION: Admission Past Med/Surg History Problem List (Updated 12/05/23 @ 23:11 by Lowell Schwab MD) Dizziness (Acute) Brain fog (Acute) Headache (Acute) Acute left-sided weakness (Acute) Right facial pain (Acute) Diverticulitis Encounter for pre-operative examination GERD (gastroesophageal reflux disease) (Acute) Headache (Acute) Hyperventilation (Acute) Hyperventilation syndrome (Acute) Hyperventilation syndrome (Acute) Hypokalemia (Acute) Palpitations (Acute) Reactive airway disease (Acute) Medical History (Updated 12/05/23 @ 23:11 by Lowell Schwab MD) Diverticulitis Osteoarthritis Gout Anxiety Migraine Reactive airway disease Surgical History H/O right knee surgery BENIGN TUMOR REMOVED History of section X2 History of dilatation and curettage History of tooth extraction WISDOM TEETH Family History Brother Family history of diabetes mellitus Grandmother Family history of diabetes mellitus MATERNAL AND PATERNAL Social History Smoking Status: Unknown if ever smoked Tobacco Type: E-cigarettes / Vaping Cigarettes Per Day: 10 A DAY; Second Hand Exposure: Yes; Do You Dip or Chew Tobacco: No; Hx Alcohol Use: Yes Alcohol type: hard liquor Hx Substance Use: No Preferred Language: Citizen Of [place] Communication Ability: Effective Bench Press Operator Required: No Beliefs That Will Affect Care: None Current Living Situation: Spouse Current Living Situation Comment: Lives at home with and 2 children Feels Safe at Home: Yes Assistive Devices: Contacts and Glasses Allergies Allergies Allergy/AdvReac Type Severity Reaction Status Date / Time aloe Allergy Mild RASH Verified 11/26/23 15:57 Home Meds Home Medications Medication Instructions Recorded Confirmed multivitamin 1 tab PO QAM 11/06/17 11/26/23 ibuprofen 200 mg tablet (Advil) 400 mg PO Q6H PRN Pain 03/01/23 11/26/23 melatonin 3 mg tablet 3 mg PO HS PRN Sleep 03/01/23 11/26/23 alprazolam 0.5 mg tablet 0.5 mg PO UD PRN travel 08/11/23 11/26/23 polyethylene glycol 3350 17 17 g PO DAILY PRN Constipation 08/16/23 11/26/23 gram/dose oral powder ibuprofen 600 mg tablet 600 mg PO BID PRN Pain 11/26/23 11/26/23 Previous Rx's Medication Instructions Recorded prednisone 20 mg tablet 20 mg PO DAILY #7 tabs 11/26/23 Results & Data (ED) Vital Signs Vital Signs - 24 hr 12/05/23 15:56 12/05/23 16:28 12/05/23 16:33 Temperature 36.8 C Temperature Source Temporal Artery Scan Pulse Rate 94 H 79 Pulse Rate [Apical] 72 Pulse Rate from SpO2 Sensor 79 Pulse Rhythm [Apical] Regular Pulse Strength [Apical] Normal Respiratory Rate 18 18 16 Respiratory Effort / Characteristics Non-Labored Spontaneous Non-Labored Spontaneous Respiratory Depth Normal Normal Respiratory Pattern Regular Regular Blood Pressure 120/82 Blood Pressure [Right Arm] 130/95 Blood Pressure Mean 94 Blood Pressure Mean [Right Arm] 106 Blood Pressure Position [Right Arm] Lying Pulse Oximetry 98 99 100 Oxygen Delivery Method Room Air Room Air Sepsis Recent Fever Within 48 Hours No Sepsis New/Unexplained Change in Mental Status No Sepsis Action Taken by Nursing No Action Required 12/05/23 17:36 12/05/23 17:46 12/05/23 19:07 Temperature Temperature Source Pulse Rate 73 77 Pulse Rate [Apical] 84 Pulse Rate from SpO2 Sensor 74 Pulse Rhythm [Apical] Regular Pulse Strength [Apical] Normal Respiratory Rate 20 20 Respiratory Effort / Characteristics Non-Labored Spontaneous Respiratory Depth Normal Respiratory Pattern Regular Blood Pressure 119/77 Blood Pressure [Right Arm] 113/80 Blood Pressure Mean 91 Blood Pressure Mean [Right Arm] 91 Blood Pressure Position [Right Arm] Lying Pulse Oximetry 100 99 Oxygen Delivery Method Room Air Sepsis Recent Fever Within 48 Hours Sepsis New/Unexplained Change in Mental Status Sepsis Action Taken by Nursing 12/05/23 20:31 12/05/23 21:19 12/05/23 23:02 Temperature Temperature Source Pulse Rate 83 Pulse Rate [Apical] 73 83 Pulse Rate from SpO2 Sensor Pulse Rhythm [Apical] Regular Regular Pulse Strength [Apical] Normal Normal Respiratory Rate 12 13 Respiratory Effort / Characteristics Non-Labored Non-Labored Respiratory Depth Normal Normal Respiratory Pattern Regular Regular Blood Pressure Blood Pressure [Right Arm] 110/78 114/77 Blood Pressure Mean Blood Pressure Mean [Right Arm] 88 89 Blood Pressure Position [Right Arm] Lying Lying Pulse Oximetry 100 99 Oxygen Delivery Method Room Air Room Air Sepsis Recent Fever Within 48 Hours Sepsis New/Unexplained Change in Mental Status Sepsis Action Taken by Assisted Medications Current Medication List: was personally reviewed by me Laboratory Data Attestation: I reviewed the patient's lab results. 12/05/23 16:20 12/05/23 16:20 Lab Results 12/05/23 12/05/23 12/05/23 Range/Units 16:20 16:24 Unknown WBC 6.55 (4.8-10.8) K/ul RBC 4.75 (4.20-5.40) M/uL Hgb 13.5 (12.0-16.0) g/dl Hct 39.9 (37.0-47.0) % MCV 84.0 (80.0-100.0) fL MCH 28.4 (25.0-34.0) pg MCHC 33.8 (32.0-36.0) g/dL RDW Std Deviation 38.4 (36.4-46.3) fL RDW Coeff of Daniela 12.7 (11.5-14.5) % Plt Count 302 (130-400) K/uL MPV 10.4 (9.4-12.4) fL Immature Gran % (Auto) 0.2 % Neut % (Auto) 58.6 % Lymph % (Auto) 33.4 % [place] % (Auto) 5.8 % Eos % (Auto) 1.5 % Baso % (Auto) 0.5 % Neut # (Auto) 3.84 (1.40-6.50) K/uL Lymph # (Auto) 2.19 (1.20-3.40) K/uL [place] # (Auto) 0.38 (0.11-0.59) K/uL Eos # (Auto) 0.10 (0.00-0.50) K/uL Baso # (Auto) 0.03 (0.00-0.20) K/uL Immature Gran # (Auto) 0.01 (0.01-0.20) K/uL PT 10.3 (9.0-12.0) Seconds INR 0.9 (0.9-1.1) APTT 34 H (21-31) Seconds PTT Ratio 1.3 Sodium 142 (136-145) mmol/L Potassium 3.4 L (3.5-5.1) mmol/L Chloride 107 (98-107) mmol/L Carbon Dioxide 25 (21-32) mmol/L Anion Gap 10 (3-11) BUN 12 (6-23) mg/dl Creatinine 0.66 (0.6-1.2) mg/dl Est Cr Clr Drug Dosing 97.6 ml/min eGFR 108.14 BUN/Creatinine Ratio 18.2 (10-20) Glucose 93 (70-99(Fasting)) mg/dl Calcium 10.2 (8.6-10.3) mg/dl Magnesium 2.1 (1.7-2.4) mg/dl Total Bilirubin 0.4 (0.2-1.0) mg/dl AST 16 (13-39) U/L ALT 16 (7-52) U/L Alkaline Phosphatase 57 (34-104) U/L Total Protein 8.1 (6.0-8.3) gm/dl Albumin 4.8 (3.4-5.0) gm/dl Globulin 3.3 (2.5-4.0) gm/dl Albumin/Globulin Ratio 1.5 (0.9-2) Urine Color Yellow Urine Appearance Cloudy A (Clear) Urine pH 8.5 H (4.5-7.5) Ur Specific [place] 1.011 (1.000-1.030) Urine Protein Negative (Negative) Urine Glucose (UA) Negative (Negative) Urine Ketones Negative (Negative) Urine Blood Negative (Negative) Urine Nitrite Negative (Negative) Urine Bilirubin Negative (Negative) Urine Urobilinogen Negative (Negative) Ur Leukocyte Esterase 1+ H (Negative) Urine WBC (Auto) 6-10 H (0-5) /hpf Urine RBC (Auto) 0-2 (0-2) /hpf U Hyaline Cast (Auto) 0-2 (0-2) /lpf U Epithel Cells (Auto) 0-2 (0-2) /hpf Urine Bacteria (Auto) None Seen (None Seen) Imaging Data Radiologist's Impression: Chest X-Ray 12/05/23 17:51 SINGLE VIEW CHEST CLINICAL HISTORY: Strokelike symptoms. FINDINGS: An AP, portable, upright chest radiograph is compared to study dated 08/16/2023. The cardiomediastinal silhouette is unremarkable. Calcified granulomas are seen at the left lung base. The lungs and pleural spaces are otherwise clear. No pneumothorax is seen. The bony thorax is grossly intact. IMPRESSION: No active disease in the chest. ACT 112: Negative or not required by law. Electronically signed by: Lowell Keen M.D. 12/05/2023 7:[address] 12/05/23 17:51 Exam(s): CT HEAD Without Contrast EXAM: CT Head Without Intravenous Contrast CLINICAL HISTORY: Reason for exam: Neuro deficit, acute, stroke suspected. TECHNIQUE: Axial computed tomography images of the head/brain without intravenous contrast. CTDI is 37.87 mGy and DLP is 546.36 mGy-cm. Automated exposure control was utilized for the study. A dose lowering technique was utilized adhering to the principles of ALARA. COMPARISON: August 16, 2023 FINDINGS: Brain: Unremarkable. No hemorrhage. No significant white matter disease. No edema. Ventricles: Unremarkable. No ventriculomegaly. Bones/joints: Unremarkable. No acute fracture. Soft tissues: Unremarkable. Sinuses: Unremarkable as visualized. No acute sinusitis. Mastoid air cells: Unremarkable as visualized. No mastoid effusion. IMPRESSION: No acute intracranial abnormality Electronically signed by: Octavio Fraga MD 12/05/23 20:44 PM Discharge Plan Visit Data Chief Complaint: TIA Symptoms Stated Complaint: TINGLING IN BOTH LEGS, WEAKNESS, HEAD PRESSURE ED Provider: Lowell Schwab Discharge Problem: Acute left-sided weakness, Headache, Brain fog, Dizziness Patient Disposition: Admitted As Inpatient Condition: Fair Forms Stand Alone Forms: [facility] [employer] Prescriptions Prescriptions: No Action multivitamin Tablet 1 tab PO QAM melatonin 3 mg Tablet 3 mg PO HS PRN (Reason: Sleep) ibuprofen [Advil] 200 mg Tablet 400 mg PO Q6H PRN (Reason: Pain) alprazolam 0.5 mg tablet 0.5 mg PO UD PRN (Reason: travel) Rx Instructions: 1 to 2 tabs polyethylene glycol 3350 17 gram/dose powder 17 g PO DAILY PRN (Reason: Constipation) ibuprofen 600 mg tablet 600 mg PO BID PRN (Reason: Pain) prednisone 20 mg tablet 20 mg PO DAILY Qty: 7 0RF Referrals Referrals: Kenisha Zepeda DO [Primary Care Provider] - Discharge Problem: Headache Qualifiers: Headache type: unspecified Headache chronicity pattern: acute headache I ntractability: not intractable Qualified Code(s): R51.9 - Headache, unspecified
[2023-12-05 19:37] LABS: INR 0.9 (0.9-1.1); Partial Thromboplastin Ratio 1.3; Partial Thromboplastin Time 34 Seconds (21-31); Prothrombin Time 10.3 Seconds (9.0-12.0)
--- NOTE | 2023-12-05 19:50 | XRay Report ---
SINGLE VIEW CHEST CLINICAL HISTORY: Strokelike symptoms. FINDINGS: An AP, portable, upright chest radiograph is compared to study dated 08/16/2023. The cardiom ediastinal silhouette is unremarkable. Calcified granulomas are seen at the left lung base. The lungs and pleural spaces are otherwise clear. No pneumothorax is seen. The bony thorax is grossly intact. IMPRESSION: No active disease in the chest. ACT 112: Negative or not required by law. Electronically signed by: Lowell Keen M.D. 12/05/2023 7:48 PM
[2023-12-05 19:57] LABS: Appearance Urine Cloudy (Clear); Bacteria Urine Automated None Seen (None Seen); Bilirubin Urine Negative (Negative); Blood Urine Negative (Negative); Cast Urine Automated 0-2 /lpf (0-2); Color Urine Yellow; Epithelial Cell Urine Auto 0-2 /hpf (0-2); Glucose Urine UA Negative (Negative); Ketones Urine Negative (Negative); Leukocyte Esterase Urine 1+ (Negative); Nitrite Urine Negative (Negative); Protein Urine Negative (Negative); RBC Urine Automated 0-2 /hpf (0-2); Specific Gravity Urine 1.011 (1.000-1.030); Urobilinogen Urine Negative (Negative); pH Urine 8.5 (4.5-7.5)
--- NOTE | 2023-12-05 20:45 | CT Scan Report ---
Exam(s): CT HEAD Without Contrast EXAM: CT Head Without Intravenous Contrast CLINICAL HISTORY: Reason for exam: Neuro deficit, acute, stroke suspected. TECHNIQUE: Axial computed tomography images of the head/brain without intravenous contrast. CTDI is 37.87 mGy and DLP is 546.36 mGy-cm. Automated exposure control was utilized for the study. A dose lowering technique was utilized adhering to the principles of ALARA. COMPARISON: August 16, 2023 FINDINGS: Brain: Unremarkable. No hemorrhage. No significant white matter disease. No edema. Ventricles: Unremarkable. No ventriculomegaly. Bones/joints: Unremarkable. No acute fracture. Soft tissues: Unremarkable. Sinuses: Unremarkable as visualized. No acute sinusitis. Mastoid air cells: Unremarkable as visualized. No mastoid effusion. IMPRESSION: No acute intracranial abnormality Electronically signed by: Octavio Fraga MD 12/05/23 20:44 PM
--- NOTE | 2023-12-06 03:03 | History & Physical Report ---
Date of Service December 06, 2023 Assessment & Plan (1) Stroke-like symptoms: Plan: 48-year-old female with past medical history significant for rheumatoid arthritis of multiple sites without rheumatoid factor, recurrent iritis of right eye, migraine variant, history genital warts, history of recurrent diverticulitis for which patient is scheduled for surgery end of this month and she is taking MiraLAX daily in preparation for the surgery comes because of st rokelike symptoms. Patient says since November 23 she is feeling pressure in the head. Since last couple of weeks she is she feeling foggy in her brain. Since last week she is feeling numbness and a tingliness in the both lower extremities more in the left lower extremity and also weakness in the left thumb. Because of ongoing symptoms she came to the ER today. She was also recently diagnosed with lumbar disc disease and is prescribed gabapentin as needed. Patient denies any blurred visions or double vision. No earache. No runny nose or sore throat. No cough. No fevers. Whenever she feels fogginess in her brain she has some difficulty swallowing which last about half hour and as fogginess resolves she can swallow okay. No nausea. No abdominal pain. Normal bowel and bladder movements. Denies any bloody stools. No rash. Initially today she was not able to ambulate much but in the ER currently she was able to ambulate okay. Hemodynamics are okay. Strokelike symptoms Pressure in the head since November 23 Fogginess of brain since last 2 weeks Numbness and weakness of lower extremity more in right leg and weakness of left thumb since last [address] head okay Hemodynamics okay Labs okay Will do full stroke workup with CTA head and neck and MRI brain Neurochecks PT/OT evaluation Telemetry Neuroconsult in a.m. for further recommendation Degenerative lumbar disease On gabapentin as needed DVT prophylaxis SCDs Disposition Telemetry Full code. History of Present Illness Chief Complaint: Strokelike symptoms Primary Care Provider: Kenisha Zepeda DO 48-year-old female with past medical history significant for rheumatoid arthritis of multiple sites without rheumatoid factor, recurrent iritis of right eye, migraine variant, history genital warts, history of recurrent diverticulitis for which patient is scheduled for surgery end of this month and she is taking MiraLAX daily in preparation for the surgery comes because of strokelike symptoms. Patient says since November 23 she is feeling pressure in the head. Since last couple of weeks she is she feeling foggy in her brain. Since last week she is feeling numbness and a tingliness in the both lower extremities more in the left lower extremity and also weakness in the left thumb. Because of ongoing symptoms she came to the ER today. She was also recently diagnosed with lumbar disc disease and is prescribed gabapentin as needed. Patient denies any blurred visions or double vision. No earache. No runny nose or sore throat. No cough. No fevers. Whenever she feels fogginess in her brain she has some difficulty swallowing which last about half hour and as fogginess resolves she can swallow okay. No nausea. No abdominal pain. Normal bowel and bladder movements. Denies any bloody stools. No rash. Initially today she was not able to ambulate much but in the ER currently she was able to ambulate okay. Hemodynamics are okay. Past medical history. As mentioned above Past surgical history. Colonoscopy. Benign tumor removed from knee. Social history. . Quit smoking 2021. Smoked 0.3 pack a day for 20 years. Alcohol occasional. Family history. Maternal aunt had breast cancer. Father has epilepsy. Mother has sleep apnea. Brother has diabetes. Maternal grandfather had heart disorder. Daughter has migraines. Brother has lung cancer. Allergies Allergy/AdvReac Type Severity Reaction Status Date / Time aloe Allergy Mild RASH Verified 11/26/23 15:57 Home Medications Medication Instructions Recorded Confirmed Type escitalopram oxalate 10 mg tablet 10 mg PO DAILY 12/06/23 12/06/23 History gabapentin 100 mg capsule 100 mg PO TID PRN Pain 12/06/23 12/06/23 History polyethylene glycol 3350 17 gram 17 g PO DAILY 12/06/23 12/06/23 History oral powder packet (Miralax) Past Med/Surg History Problem List (Updated 12/06/23 @ 03:07 by Tavo Cox MD) Stroke-like symptoms Dizziness (Acute) Brain fog (Acute) Headache (Acute) Acute left-sided weakness (Acute) Right facial pain (Acute) Diverticulitis Encounter for pre-operative examination GERD (gastroesophageal reflux disease) (Acute) Headache (Acute) Hyperventilation (Acute) Hyperventilation syndrome (Acute) Hyperventilation syndrome (Acute) Hypokalemia (Acute) Palpitations (Acute) Reactive airway disease (Acute) Medical History (Updated 12/06/23 @ 03:07 by Tavo Cox MD) Diverticulitis Osteoarthritis Gout Anxiety Migraine Reactive airway disease Surgical History H/O right knee surgery BENIGN TUMOR REMOVED History of section X2 History of dilatation and curettage History of tooth extraction WISDOM TEETH Family History Brother Family history of diabetes mellitus Grandmother Family history of diabetes mellitus MATERNAL AND PATERNAL Social History Smoking Status: Current some day smoker Tobacco Type: E-cigarettes / Vaping Second Hand Exposure: Yes; Do You Dip or Chew Tobacco: No; Tobacco Cessation Education Requested by Patient: No Hx Alcohol Use: Yes Alcohol type: hard liquor Hx Substance Use: No Preferred Language: Cypriot Communication Ability: Effective [employer] Required: No Beliefs That Will Affect Care: None Current Living Situation: Spouse Current Living Situation Comment: Lives at home with and 2 children Other Information That Helps Us Care for You: No Feels Safe at Home: Yes Safety Concerns: Feels Safe At This Time Assistive Devices: Contacts and Glasses Review of Systems Review of Systems: All systems reviewed & are unremarkable except as noted in HPI & below Physical Exam Physical Exam: General- Not in distress Head- atraumatic Eyes- PERRL, EOMI. ENT- oropharynx clear Neck- supple, no JVD. Lungs- clear to auscultation no wheezing or crackles Heart- regular rate and rhythm; no murmur, no gallop. Abdomen- normal bowel sounds, soft, nontender, no distension. Extremities- no pretibial edema, no erythema seen Neuro- alert, oriented PERRL, EOMI; no facial palsy; no dysarthria; motor 5/5 bilaterally except 2/5 in left lower extremity; no pronator drift, co ordination of movements normal, sensations intact. Results & Data Results & Data Vital Signs (Past 12 Hours) Vital Signs Temp Pulse Pulse Resp BP BP Pulse Ox 12/06/23 01:34 79 14 129/94 12/06/23 00:21 70 12/05/23 23:02 83 13 114/77 99 12/05/23 21:19 73 12 110/78 100 12/05/23 20:31 83 12/05/23 19:07 84 20 113/80 99 12/05/23 17:46 77 12/05/23 17:36 73 20 119/77 100 12/05/23 16:33 79 16 100 12/05/23 16:28 72 18 130/95 99 12/05/23 15:56 36.8 C 94 H 18 120/82 98 O2 Del Method 12/06/23 01:34 Room Air 12/06/23 00:21 12/05/23 23:02 Room Air 12/05/23 21:19 Room Air 12/05/23 20:31 12/05/23 19:07 Room Air 12/05/23 17:46 12/05/23 17:36 12/05/23 16:33 12/05/23 16:28 Room Air 12/05/23 15:56 Room Air Diagnostic Findings Laboratory Results WBC 6.55 K/ul (4.8-10.8) 12/05/23 16:20 RBC 4.75 M/uL (4.20-5.40) 12/05/23 16:20 Hgb 13.5 g/dl (12.0-16.0) 12/05/23 16:20 Hct 39.9 % (37.0-47.0) 12/05/23 16:20 MCV 84.0 fL (80.0-100.0) 12/05/23 16:20 MCH 28.4 pg (25.0-34.0) 12/05/23 16:20 MCHC 33.8 g/dL (32.0-36.0) 12/05/23 16:20 RDW Std Deviation 38.4 fL (36.4-46.3) 12/05/23 16:20 RDW Coeff of Daniela 12.7 % (11.5-14.5) 12/05/23 16:20 Plt Count 302 K/uL (130-400) 12/05/23 16:20 MPV 10.4 fL (9.4-12.4) 12/05/23 16:20 Immature Gran % (Auto) 0.2 % 12/05/23 16:20 Neut % (Auto) 58.6 % 12/05/23 16:20 Lymph % (Auto) 33.4 % 12/05/23 16:20 [place] % (Auto) 5.8 % 12/05/23 16:20 Eos % (Auto) 1.5 % 12/05/23 16:20 Baso % (Auto) 0.5 % 12/05/23 16:20 Neut # (Auto) 3.84 K/uL (1.40-6.50) 12/05/23 16:20 Lymph # (Auto) 2.19 K/uL (1.20-3.40) 12/05/23 16:20 [place] # (Auto) 0.38 K/uL (0.11-0.59) 12/05/23 16:20 Eos # (Auto) 0.10 K/uL (0.00-0.50) 12/05/23 16:20 Baso # (Auto) 0.03 K/uL (0.00-0.20) 12/05/23 16:20 Immature Gran # (Auto) 0.01 K/uL (0.01-0.20) 12/05/23 16:20 PT 10.3 Seconds (9.0-12.0) 12/05/23 16:24 INR 0.9 (0.9-1.1) 12/05/23 16:24 APTT 34 Seconds (21-31) H 12/05/23 16:24 PTT Ratio 1.3 12/05/23 16:24 Sodium 142 mmol/L (136-145) 12/05/23 16:20 Potassium 3.4 mmol/L (3.5-5.1) L 12/05/23 16:20 Chloride 107 mmol/L (98-107) 12/05/23 16:20 Carbon Dioxide 25 mmol/L (21-32) 12/05/23 16:20 Anion Gap 10 (3-11) 12/05/23 16:20 BUN 12 mg/dl (6-23) 12/05/23 16:20 Creatinine 0.66 mg/dl (0.6-1.2) 12/05/23 16:20 Est Cr Clr Drug Dosing 97.6 ml/min 12/05/23 16:20 eGFR 108.14 12/05/23 16:20 BUN/Creatinine Ratio 18.2 (10-20) 12/05/23 16:20 Glucose 93 mg/dl (70-99(Fasting)) 12/05/23 16:20 Calcium 10.2 mg/dl (8.6-10.3) 12/05/23 16:20 Magnesium 2.1 mg/dl (1.7-2.4) 12/05/23 16:20 Total Bilirubin 0.4 mg/dl (0.2-1.0) 12/05/23 16:20 AST 16 U/L (13-39) 12/05/23 16:20 ALT 16 U/L (7-52) 12/05/23 16:20 Alkaline Phosphatase 57 U/L (34-104) 12/05/23 16:20 Total Protein 8.1 gm/dl (6.0-8.3) 12/05/23 16:20 Albumin 4.8 gm/dl (3.4-5.0) 12/05/23 16:20 Globulin 3.3 gm/dl (2.5-4.0) 12/05/23 16:20 Albumin/Globulin Ratio 1.5 (0.9-2) 12/05/23 16:20 Urine Color Yellow 12/05/23 Unknown Urine Appearance Cloudy (Clear) A 12/05/23 Unknown Urine pH 8.5 (4.5-7.5) H 12/05/23 Unknown Ur Specific [place] 1.011 (1.000-1.030) 12/05/23 Unknown Urine Protein Negative (Negative) 12/05/23 Unknown Urine Glucose (UA) Negative (Negative) 12/05/23 Unknown Urine Ketones Negative (Negative) 12/05/23 Unknown Urine Blood Negative (Negative) 12/05/23 Unknown Urine Nitrite Negative (Negative) 12/05/23 Unknown Urine Bilirubin Negative (Negative) 12/05/23 Unknown Urine Urobilinogen Negative (Negative) 12/05/23 Unknown Ur Leukocyte Esterase 1+ (Negative) H 12/05/23 Unknown Urine WBC (Auto) 6-10 /hpf (0-5) H 12/05/23 Unknown Urine RBC (Auto) 0-2 /hpf (0-2) 12/05/23 Unknown U Hyaline Cast (Auto) 0-2 /lpf (0-2) 12/05/23 Unknown U Epithel Cells (Auto) 0-2 /hpf (0-2) 12/05/23 Unknown Urine Bacteria (Auto) None Seen (None Seen) 12/05/23 Unknown Impressions Chest X-Ray 12/05/23 17:51 SINGLE VIEW CHEST CLINICAL HISTORY: Strokelike symptoms. FINDINGS: An AP, portable, upright chest radiograph is compared to study dated 08/16/2023. The cardiomediastinal silhouette is unremarkable. Calcified granulomas are seen at the left lung base. The lungs and pleural spaces are otherwise clear. No pneumothorax is seen. The bony thorax is grossly intact. IMPRESSION: No active disease in the chest. ACT 112: Negative or not required by law. Electronically signed by: Lowell Keen M.D. 12/05/2023 7:[address] 12/05/23 17:51 Exam(s): CT HEAD Without Contrast EXAM: CT Head Without Intravenous Contrast CLINICAL HISTORY: Reason for exam: Neuro deficit, acute, stroke suspected. TECHNIQUE: Axial computed tomography images of the head/brain without intravenous contrast. CTDI is 37.87 mGy and DLP is 546.36 mGy-cm. Automated exposure control was utilized for the study. A dose lowering technique was utilized adhering to the principles of ALARA. COMPARISON: August 16, 2023 FINDINGS: Brain: Unremarkable. No hemorrhage. No significant white matter disease. No edema. Ventricles: Unremarkable. No ventriculomegaly. Bones/joints: Unremarkable. No acute fracture. Soft tissues: Unremarkable. Sinuses: Unremarkable as visualized. No acute sinusitis. Mastoid air cells: Unremarkable as visualized. No mastoid effusion. IMPRESSION: No acute intracranial abnormality Electronically signed by: Octavio Fraga MD 12/05/23 20:44 PM ECG Additional Comments: ECG. Normal sinus rhythm with rate of 64. No acute ST changes seen. Code Status & VTE Plan VTE Prophylaxis Plan VTE Prophylaxis will be ordered: Yes
[2023-12-06] MEDS ORDERED: POLYETHYLENE (MIRALAX) 17 GM PACK PO PRN (03:05)
[2023-12-06] MEDS ORDERED: NITROGLYCERIN SL 0.4 MG/TAB TAB SL PRN (03:05)
[2023-12-06] MEDS ORDERED: PHARMACIST DISCHARGE MED REC CONSULT PRN (03:05)
[2023-12-06] MEDS: OPTIRAY 320 125ml IV ONE (03:31)
[2023-12-06] MEDS: SODIUM CHLORIDE 0.9% 1,000 ML IV SCH (03:41)
[2023-12-06] MEDS: LORazepam 0.5 MG TAB PO ONE (03:55)
--- NOTE | 2023-12-06 04:12 | CT Scan Report ---
Exam(s): CTA HEAD With Contrast IV Amt: 118 ML OPTIRAY 320 EXAM: CT Angiography Head With Intravenous Contrast CLINICAL HISTORY: Reason for exam: cva?. TECHNIQUE: Axial computed tomographic angiography images of the head with intravenous contrast. CTDI is 36.48 mGy and DLP is 470.66 mGy-cm. Automated exposure control was utilized for the study. A dose lowering technique was utilized adhering to the principles of ALARA. MIP reconstructed images were created and reviewed. CONTRAST: Patient received 118 ML OPTIRAY 320 of IV contrast COMPARISON: No relevant prior studies available. FINDINGS: The dural venous sinuses are patent. Right internal carotid artery: No acute findings. Intracranial segment is patent with no significant stenosis. No aneurysm. Right anterior cerebral artery: Unremarkable. No occlusion or significant stenosis. No aneurysm. Right middle cerebral artery: Unremarkable. No occlusion or significant stenosis. No aneurysm. Right posterior cerebral artery: Unremarkable. No occlusion or significant stenosis. No aneurysm. Right vertebral artery: Unremarkable as visualized. Left internal carotid artery: No acute findings. Intracranial segment is patent with no significant stenosis. No aneurysm. Left anterior cerebral artery: Unremarkable. No occlusion or significant stenosis. No aneurysm. Left middle cerebral artery: Unremarkable. No occlusion or significant stenosis. No aneurysm. Left posterior cerebral artery: Unremarkable. No occlusion or significant stenosis. No aneurysm. Left vertebral artery: Unremarkable as visualized. Basilar artery: Unremarkable. No occlusion or significant stenosis. No aneurysm. IMPRESSION: Negative CT angiogram of the head. Electronically signed by: Marisela Carreno MD 12/06/23 04:11 AM
--- NOTE | 2023-12-06 04:14 | CT Scan Report ---
Exam(s): CTA NECK With Contrast IV Amt: 118 ML OPTIRAY 320 EXAM: CT Angiography Neck With Intravenous Contrast CLINICAL HISTORY: Reason for exam: cva?. TECHNIQUE: Routine carotid CT angiography protocol was performed with intravenous contrast. NASCET criteria using the distal ICAs for comparison were used for evaluation of stenoses. CTDI is 36.48 mGy and DLP is 470.66 mGy-cm. Automated exposure control was utilized for the study. A dose lowering technique was utilized adhering to the principles of ALARA. MIP reconstructed images were created and reviewed. CONTRAST: Patient received 118 ML OPTIRAY 320 of IV contrast COMPARISON: None. FINDINGS: VASCULATURE: Right common carotid artery: Unremarkable. No occlusion or significant stenosis. No dissection. Right internal carotid artery: Unremarkable. Extracranial segment is patent with no occlusion or significant stenosis. No dissection. Right external carotid artery: Unremarkable. No occlusion. Right vertebral artery: Unremarkable. No occlusion or significant stenosis. No dissection. Left common carotid artery: Unremarkable. No occlusion or significant stenosis. No dissection. Left internal carotid artery: Unremarkable. Extracranial segment is patent with no occlusion or significant stenosis. No dissection. Left external carotid artery: Unremarkable. No occlusion. Left vertebral artery: Unremarkable. No occlusion or significant stenosis. No dissection. NECK: Bones/joints: Unremarkable. No acute fracture. Soft tissues: Unremarkable. Lung apices: Clear. CAROTID STENOSIS REFERENCE USING NASCET CRITERIA: % ICA stenosis = (1 - narrowest ICA diameter/diameter of distal cervical ICA) x 100. Mild - <50% stenosis. Moderate - 50-69% stenosis. Severe - 70-94% stenosis. Near occlusion - 95-99% stenosis. Occluded - 100% stenosis. IMPRESSION: Negative CTA neck. Electronically signed by: Marisela Carreno MD 12/06/23 04:12 AM
[2023-12-06] MEDS: GADOBUTROL 30ML VIAL IV ONE (04:30)
--- NOTE | 2023-12-06 05:48 | Magnetic Resonance Report ---
Exam(s): MRI HEAD W/WO Contrast IV Amt: 6.5cc gadavist EXAM: MR Head Without and With Intravenous Contrast CLINICAL HISTORY: Reason for exam: sttroke like symptoms. TECHNIQUE: Magnetic resonance images of the head/brain without and with intravenous contrast in multiple planes. CONTRAST: Patient received 6.5cc gadavist of IV contrast COMPARISON: Prior head CT from December 05, 2023. FINDINGS: Brain: Minimal nonspecific white matter changes. No mass. No hemorrhage. No acute infarct. The flow voids at the base the brain are intact. Tiny left choroidal fissure cyst. There is a tiny left cerebellar developmental venous anomaly. The dural venous sinuses are patent. Ventricles: Unremarkable. No ventriculomegaly. Bones/joints: Unremarkable. No acute fracture. Sinuses: Unremarkable as visualized. No acute sinusitis. Mastoid air cells: Unremarkable as visualized. No mastoid effusion. Orbits: Unremarkable as visualized. IMPRESSION: No evidence of acute intracranial pathology. Electronically signed by: Marisela Carreno MD 12/06/23 05:46 AM
--- OUTSIDE RECORDS SUMMARY | 2023-12-06 06:35 | External Medical Summary | Summary of Care ---
Author Name Unknown Organization [facility] Address [address] [place] [address] Phone [phone] Care Team Providers Care Associate Editor Name Role Phone Rosita Sanchez PA-C Primary Care Provider [phone] Reason for Visit * Reason Comments Outpatient Testing Encounter Details Date Type Department Care Team (Late st Contact Info) Description 12/04/2023 2:30 PM EDT Laboratory Laboratory [facility] [address] [place] [id number] [place], [address] Scenery [address] [place] [address] Paresthesia of left upper and lower extremity; Diverticulitis Allergies Active Allergy Reactions Criticality Noted Date Comments Aloe Rash 05/10/2012 Prednisone 08/10/2020 Heightened anxiety. SOB and palpitations. documented as of this encounter (statuses as of 12/04/2023) Medications Medication Sig Dispensed Refills Start Date End Date Status MULTIVITAMIN/MINERAL S 27-1 MG PO CAPS twice daily Active diphenhydrAMINE HCl 25 MG Oral Capsule (Benadryl) Take 1 Capsule by mouth every 6 hours as needed for Itching (allergy symptoms). Takes a few times per week Active Melatonin 3 MG Oral Tablet 3 Tablets. 03/01/2023 Active ALPRAZolam 0.5 MG Oral Tablet (Xanax) 1-2 tabs prior to travel 10 Tablet 06/05/2023 Active Additional Information Patient not taking.Reported on 11/21/2023 Polyethylene Glycol 3350 17 GM Oral Packet (Miralax) Take 1 Packet by mouth daily as needed. Active Vitron-C 65-125 MG Oral Tablet (Iron-Vitamin C 65-125 mg per tab) Take 1 Tablet by mouth in the morning. Active Ibuprofen 600 MG Oral Tablet (Motrin)Indications: Left lumbar radiculopathy,Balta listhesis of lumbar spine Take 1 Tablet by mouth in the morning and 1 Tablet at noon and 1 Tablet before bedtime. with food for pain x7-10days. 30 Tablet 11/21/2023 Active Cyclobenzaprine HCl 10 MG Oral Tablet (Flexeril)Indication s:Left lumbar radiculopathy,Balta listhesis of lumbar spine Take 1 Tablet by mouth 2 times a day as needed for Muscle spasms. 20 Tablet 11/21/2023 Active Additional Information Patient not taking.Reported on 12/04/2023 Gabapentin 100 MG Oral Capsule (Neurontin)Indicatio ns:Degeneration of intervertebral disc of lumbar region with discogenic back pain and lower extremity pain,Paresthesia of left upper and lower extremity Take 1 Capsule by mouth 3 times a day as needed (pain). 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 09/21/2015 documented as of this encounter (statuses as of 12/04/2023) Immunizations Name Administration Dates Next Due COVID-19 mRNA, LNP-s, No Pre serve, 2-Dose Series (Moderna) 04/17/2020,03/20/2020 COVID-19 mRNA, LNP-s, No Pre serve, 2-Dose Series (Pfizer) 01/01/2021 Hepatitis B, 20+ yrs 09/29/2014 PPD 10/06/2014,09/29/2014 Pneumococcal Conjugate Vacci ne, 20-valent (Pppyhvl40) 12/28/2021 Pneumococcal Polysaccharide PPV23 (Pneumovax) 02/24/2014 Seasonal Influenza Vac., MDV , IM, 0.5 mL (Fluzone) 12/27/2015,11/08/2013,02/05/2013 Seasonal Influenza, PF, 6 M & above, IM , (FluLaval or Fluzone) 11/18/2021,02/01/2018,12/19/2016 Seasonal Influenza, Quadriva lent, No Preserve, Mdck 11/17/2019,12/05/2018 TDAP (age 10 and older)(Boostrix) 12/28/2021,08/2010 documented as of this encounter Social History Tobacco Use Types Packs/Day Years Used Date Smoking Tobacco: Former Cigarettes 0.3 20 2 002 - 2021 Smokeless Tobacco: Never Comments:under 10 cigs a day Alcohol Use Standard Drinks/Week Comments Not Currently 1.7 (1 standard drink = 0.6 oz [...] money to get more. Never true 03/04/2023 Childcare Answer Date Recorded Do you feel overwhelmed with taking care of a child, family member or friend? No 03/04/2023 Does your family need help f inding childcare? (Household - for ages 0-17 years) Not on file 03/04/2023 Clothing Answer Date Recorded Have you been unable to get clothing when it was really needed? Yes 03/04/2023 Is your family able to get c lothes or diapers when needed? (Household - for ages 0-17 years) Not on file 03/04/2023 Personal Safety Answer Date Recorded Do you feel unsafe or have concerns for your saf ety? No 03/04/2023 Do you have concerns for you r family's safety? (Household - for ages 0-17 years) Not on file 03/04/2023 Utilities Answer Date Recorded Do you have trouble paying y our heating, water, or electric bill? No 03/04/2023 Is your family able to pay t he heat, water, or electric bill? (Household - for ages 0-17 years) Not on file 03/04/2023 Does your family have access to good internet? (Household - for ages 0-17 years) Not on file 03/04/2023 Employment Status Answer Date Recorded Are you unemployed or without regular income? No 03/04/2023 Does the household have a re gular source of income? (Household - for ages 0-17 years) Not on file 03/04/2023 Social Connections Answer Date Recorded How often do you feel lonely or isolated from th ose around you? Never 03/04/2023 Financial Resource Strain Answer Date R ecorded Do you have any trouble payi ng for your medications, or do you think you might in the future? No 03/04/2023 Does your family have troubl e paying for medicine? (Household - for ages 0-17 years) Not on file 03/04/2023 Transportation Needs Answer Date Record ed READ ONLY Do you have troubl e getting a ride to medical visits or work? Never True 03/04/2023 Does your family have a hard time getting a ride to doctors visits? (Household - for ages 0-17 years) Not on file 03/04/2023 Has lack of transportation k ept you from medical appointments, meetings, work, or from getting things needed for daily living? Check all that apply. (Adult - for ages 18 years and over) Not on file 03/04/2023 Do you (or your family) have trouble finding or paying for a ride (transportation)? (Household - for ages 0-17 years) Not on file 03/04/2023 Housing Stability Answer Date Recorded Do you currently live in a s helter or have no steady place to sleep at night? No 03/04/2023 READ ONLY Do you think you a re at risk of becoming homeless? No 03/04/2023 Does your family worry about paying for your home or becoming homeless? (Household - for ages 0-17 years) Not on file 0 03/04/2023 Are you homeless or worried that you might be in the future? (Adult - for ages 18 years and over) Not on file Are you (or your family) josh eless or worried that you might be in the future? (Household - for ages 0-17 years) Not on file Food Insecurity Answer Date Recorded Do you need food for this week? No 03/04/2023 Are you able to get enough f ood for your family? (Household - for ages 0-17 years) Not on file 03/04/2023 Does your family need food t his week? (Household - for ages 0-17 years) Not on file 03/04/2023 Do you always have enough fo od for your family? (Household - for ages 0-17 years) Not on file 03/04/2023 Sex and Gender Information Value Date [...] Upcoming Encounters Date Type Department Care Team (Latest Contact Info) Description 12/18/2023 12:05 PM EDT Hospital Encounter OR C, OPERATING ROOM [facility] [address] [place] [address] Gregg Benjamin MD [address] [place] [address] 12/18/2023 12:05 PM EDT - 12/18/2023 4:40 PM EDT Surgery OR [facility], OPERATING ROOM [facility] [address] [place] [address] Gregg Benjamin MD [address] [place] [address] LAPAROSCOPIC PARTIAL COLECTOMY WITH COLOPROCTOSTOMY Pending Results Name Type Priority Associated Diagnoses Date /Time IRON SCREEN, INCLUDING TIBC Lab Routine Paresthesia of left upper and lower extremity Diverticulitis 12/04/2023 2:29 PM EDT FERRITIN Lab Routine Paresthesia of left upper and lower extremity Diverticulitis 12/04/2023 2:29 PM EDT VITAMIN B12 Lab Routine Paresthesia of left upper and lower extremity Diverticulitis 12/04/2023 2:29 PM EDT 25-HYDROXY VITAMIN D Lab Routine Paresthesia of left upper and lower extremity Diverticulitis 12/04/2023 2:29 PM EDT TSH WITH FREE T4 IF INDICATED Lab Routine Paresthesia of left upper and lower extremity Diverticulitis 12/04/2023 2:29 PM EDT COMPREHENSIVE METABOLIC PANEL Lab Routine Paresthesia of left upper and lower extremity Diverticulitis 12/04/2023 2:29 PM EDT LYME DISEASE ANTIBODY SCREEN WITH REFLEX TO CONFIRMATION Lab Routine Paresthesia of left upper and lower extremity Diverticulitis 12/04/2023 2:29 PM EDT LYME DISEASE ANTIBODY SCREEN Lab Routine Paresthesia of left upper and lower extremity Diverticulitis 12/04/2023 2:29 PM EDT Scheduled Procedures Name Priority Associated Diagnoses Date/Ti me LAPAROSCOPIC PARTIAL COLECTOMY WITH COLOPROCTOSTOMY Diverticulitis of sigmoid colon 12/18/2023 12:05 PM EDT Health Maintenance Due Date Last Done Comments Lipid Panel 1975 HIV Screening 10/16/1990 HPV/Co-Test 10/16/2005 Depression Screening 05/26/2018 05/26/2017 Cologuard 10/16/2020 Fecal Occult Blood Test 10/16/2020 Sigmoidoscopy 10/16/2020 HPV (Gardasil) Vaccine (2 - 3-dose SCDM series) 09/18/2021 08/21/2021 COVID-19 Vaccine ( season) 2023 01/09/2022, 01/01/2021, 04/17/2020, Additional history exists Influenza Vaccine (FLU shot) (#1) 2023 11/18/2021, 11/17/2019, 12/05/2018, Additional history exists Cervical Cancer Screening 12/30/2023 Pap Smear 12/30/2023 12/29/2020, 04/2016 (Done elsewhere), 10/18/2011 Mammogram 03/03/2024 03/03/2023, 07/2022, 01/19/2021, Additional history exists Colonoscopy 10/11/2028 10/12/2023, 09/21, 12/22/2021, Additional history exists Colorectal Cancer Screening 10/11/2028 DTap/Tdap Vaccines (3 - Td or Tdap) 12/29/2031 12/28/2021, 12/27/2010 Pneumococcal Vaccine: Pediatrics (0 to 5 Years) and At-Risk Patients (6 to 64 Years) Aged Out 12/28/2021, 02/24/2014 No longer eligibl e based on patient's age to complete this topic RETIRED - COLONOSCOPY-EVERY 5 YRS AGES 18-100 Discontinued 10/12/2023, 10/12/2023, 12/22/2021, Additional history exists MENINGOCOCCAL (MENACTRA/MENVEO) Aged Out No longer eligible based on patient's age to complete this topic documented as of this encounter Medical Devices Not on filedocumented as of this encounter Procedures Procedure Name Priority Date/Time Associated Diagnosis Comments DIFFERENTIAL, AUTOMATED Routine 12/04/2023 2:29 PM EDT Paresthesia of left upper and lower extremity Diverticulitis CBC Routine 12/04/2023 2:29 PM EDT Paresthesia of left upper and lower extremity Diverticulitis CBC Routine 12/04/2023 2:29 PM EDT Paresthesia of left upper and lower extremity Diverticulitis documented in this encounter Results * DIFFERENTIAL, AUTOMATED (12/04/2023 2:29 PM EDT) WBC 6.57 4.00 - 10.80 K/uL 12/04/2023 2:43 PM EDT [facility] Neutrophils % 60.8 40.0 - 75.0 % 12/04/2023 2:43 PM EDT [facility] [place] Lymphocytes % 30.7 18.0 - 42.0 % 12/04/2023 2:43 PM EDT LAB[facility]ATORY [facility] Monocytes % 6.8 1.0 - 11.0 % 12/04/2023 2:43 PM EDT [facility] 56 Eosinophils % 1.4 0.0 - 6.0 % 12/04/2023 2:43 PM EDT [facility] 56 Basophils % 0.3 0.0 - 2.0 % 12/04/2023 2:43 PM EDT [facility] 56 Absolute Neutrophils 3.99 1.80 - 7.70 K/uL 12/04/2023 2:43 PM EDT [facility] 56 Absolute Lymphocytes 2.02 1.00 - 4.80 K/ul 12/04/2023 2:43 PM EDT [facility] 56 Absolute Monocytes 0.45 0.00 - 1.10 K/uL 12/04/2023 2:43 PM EDT [facility] - Absolute Eosinophils 0.09 0.00 - 0.70 K/uL 12/04/2023 2:43 PM EDT [facility] Absolute Basophils 0.02 0.00 - 0.20 K/uL 12/04/2023 2:43 PM EDT [facility] Blood Venous blood specimen / Unknown Venipuncture / Unknown 12/04/2023 2:29 PM EDT 12/04/2023 2:29 PM EDT Yoanna Jara PA-C LAB BLOOD ORD ERABLES [facility] [address] [place], [place] [id number] * CBC (12/04/2023 2:29 PM EDT) WBC 6.57 4.00 - 10.80 K/uL 12/04/2023 2:43 PM EDT [facility] - RBC 4.38 3.85 - 5.15 M/uL 12/04/2023 2:43 PM EDT [facility] HGB 12.8 12.0 - 15.3 g/dL 12/04/2023 2:43 PM EDT [facility] 56 HCT 38.9 36.0 - 45.2 % 12/04/2023 2:43 PM EDT [facility] - MCV 88.8 81.5 - 97.5 fL 12/04/2023 2:43 PM EDT [facility] 56 MCH 29.2 27.0 - 34.0 pg 12/04/2023 2:43 PM EDT [place] [address] MCHC 32.9 32.0 - 36.0 g/dL 12/04/2023 2:43 PM EDT [facility] 56 RDW 13.4 11.5 - 15.5 % 12/04/2023 2:43 PM EDT [place] [address] PLT 257 140 - 400 K/uL 12/04/2023 2:43 PM EDT [place] [address] MPV 9.8 6.6 - 11.1 fL 12/04/2023 2:43 PM EDT [facility] 56 Blood Venous blood specimen / Unknown Venipuncture / Unknown 12/04/2023 2:29 PM EDT 12/04/2023 2:29 PM EDT Yoanna Jara PA-C LAB BLOOD ORD ERABLES [facility] [address] [place] [address] documented in this encounter Visit Diagnoses Diagnosis Diverticulitis of sigmoid colon- Primary Diverticulitis of colon (without mention of hemorrhage) Paresthesia of left upper and lower extremity Diverticulitis Diverticulitis of colon (without mention of hemorrhage) Diverticulitis of sigmoid colon Diverticulitis of colon (without mention of hemorrhage) documented in this encounter Care Teams Associate Editor Relationship Specialty Start Date End Date Rosita Sanchez PA-C [address] [facility] [place] [address] PCP - General Physician Loan Adviser 09/04/23 documented as of this encounter
--- OUTSIDE RECORDS SUMMARY | 2023-12-06 06:35 | External Medical Summary ---
Author Name Unknown Address Unknown Organization [id number]:LABORATORY [facility] - [address] [facility] [address] Laboratory Report Ordering Provider Test Date Status DOUGLAS CARLSON 12/04/2023 14:29:42 Final Observation Date Value Abnormality Reference (Units ) Status Iron 12/04/2023 14:29:42 57 33-151 (ug /dL) Final Iron-binding capacity 12/04/2023 14:29:42 318 250-425 (ug/dL) Final Transferrin Sat % 12/04/2023 14:29:42 18 15 -55 (%) Final Performing Location LABORATORY C - [address] [facility] [address]
--- OUTSIDE RECORDS SUMMARY | 2023-12-06 06:35 | External Medical Summary ---
Author Name Unknown Address Unknown Organization [id number]:[facility] [place] [address] Laboratory Report Ordering Provider Test Date Status DOUGLAS CARLSON 12/04/2023 14:29:42 Final Observation Date Value Abnormality Reference (Units ) Status WBC, Total 12/04/2023 14:29:42 6.57 4.00-10.8 0 (K/uL) Final RBC 12/04/2023 14:29:42 4.38 3.85-5.15 (M/uL) Final Hemoglobin 12/04/2023 14:29:42 12.8 12.0-15.3 (g/dL) Final HCT 12/04/2023 14:29:42 38.9 36.0-45.2 (%) Final MCV 12/04/2023 14:29:42 88.8 81.5-97.5 (fL) Final MCH 12/04/2023 14:29:42 29.2 27.0-34.0 (pg) Final MCHC 12/04/2023 14:29:42 32.9 32.0-36.0 (g/dL) Final RDW 12/04/2023 14:29:42 13.4 11.5-15.5 (%) Final Platelets 12/04/2023 14:29:42 257 140-400 (K /uL) Final MPV 12/04/2023 14:29:42 9.8 6.6-11.1 ( fL) Final Performing Location [facility] [place] [address]
--- OUTSIDE RECORDS SUMMARY | 2023-12-06 06:35 | External Medical Summary ---
Author Name Unknown Address Unknown Organization [id number]:[facility] [place] [address] [facility] [address] Laboratory Report Ordering Provider Test Date Status DOUGLAS CARLSON 12/04/2023 14:29:42 Final Observation Date Value Abnormality Reference (Units ) Status TSH 12/04/2023 14:29:42 1.45 0.27-4.20 (uIU/mL) Final Performing Location [facility] [facility] [place] [address] [facility] [address]
--- OUTSIDE RECORDS SUMMARY | 2023-12-06 06:35 | External Medical Summary ---
Author Name Unknown Address Unknown Organization [id number]:LABORATORY [facility] [place] - [facility] [place] [address] Laboratory Report Ordering Provider Test Date Status DOUGLAS CARLSON 12/04/2023 14:29:42 Final Observation Date Value Abnormality Reference (Units ) Status Borrelia burgdorferi IgG and IgM [Interpretation] in Serum by Immunoassay 12/04/2023 14:29:42 Negative Negative Final Performing Location LABORATORY [facility] [place] - [facility] [address] [facility] [place] [address]
--- OUTSIDE RECORDS SUMMARY | 2023-12-06 06:35 | External Medical Summary ---
Author Name Unknown Address Unknown Organization [id number]:[facility]ATORY [place] [address] Laboratory Report Ordering Provider Test Date Status DOUGLAS CARLSON 12/04/2023 14:29:42 Final Observation Date Value Abnormality Reference (Units ) Status SYNC LEUKOCYTES IN BLOOD BY AUTOMATED COUNT 12/04/2023 14:29:42 6.57 4.00-10.80 (K/uL) Final Segs 12/04/2023 14:29:42 60.8 40.0-75.0 (%) Final Lymphs % 12/04/2023 14:29:42 30.7 18.0-42.0 (%) Final Monos 12/04/2023 14:29:42 6.8 1.0-11.0 (%) Final Eosinophils 12/04/2023 14:29:42 1.4 0.0-6.0 (%) Final Basos 12/04/2023 14:29:42 0.3 0.0-2.0 (%) Final Absolute Segs 12/04/2023 14:29:42 3.99 1.80-7.70 (K/uL) Final Lymphs, absolute 12/04/2023 14:29:42 2.02 1.00-4.80 (K/ul) Final Monos, Abs 12/04/2023 14:29:42 0.45 0.00-1.10 (K/uL) Final Eos, Abs 12/04/2023 14:29:42 0.09 0.00-0.70 (K/uL) Final Basos, Abs 12/04/2023 14:29:42 0.02 0.00-0.20 (K/uL) Final Performing Location [facility] [place] [address]
--- OUTSIDE RECORDS SUMMARY | 2023-12-06 06:35 | External Medical Summary ---
Author Name Unknown Address Unknown Organization [id number]:LABORATORY [facility] [place] - [address] [place] [address] Laboratory Report Ordering Provider Test Date Status DOUGLAS CARLSON 12/04/2023 14:29:42 Final Observation Date Value Abnormality Reference (Units ) Status Vitamin B12 12/04/2023 14:29:42 [phone] (pg/mL) Final Performing Location LABORATORY [facility] - [address] [place] [address]
--- OUTSIDE RECORDS SUMMARY | 2023-12-06 06:35 | External Medical Summary ---
Author Name Unknown Address Unknown Organization K09:LABORATORY [facility] - [address] [place] [address] Laboratory Report Ordering Provider Test Date Status DOUGLAS CARLSON 12/04/2023 14:29:42 Final Observation Date Value Abnormality Reference (Units ) Status BUN 12/04/2023 14:29:42 14 6-20 (mg/d L) Final Creatinine 12/04/2023 14:29:42 0.7 0.5-1.0 ( mg/dL) Final The above reference range is based on the legal sex of the patient only. Results should be interpreted together with patient's sex at , gender identity, and clinical context. Glomerular filtration rate/1 .73 sq M.predicted [Volume Rate/Area] in Serum, Plasma or Blood by Creatinine-based formula (CKD-EPI) 12/04/2023 14:29:42 >90 >=60 (mL/min) Final eGFR is calculated based on the legal sex of the patient, using the CKD-EPI 2020 equation. Sodium 12/04/2023 14:29:42 143 135-146 (m mol/L) Final Potassium 12/04/2023 14:29:42 4.0 3.5-5.1 (m mol/L) Final Cl 12/04/2023 14:29:42 107 98-107 (mm ol/L) Final CO2 12/04/2023 14:29:42 25 22-32 (mmo l/L) Final Anion gap 12/04/2023 14:29:42 11 7-15 (mmol /L) Final Glucose 12/04/2023 14:29:42 95 70-120 (mg /dL) Final Albumin 12/04/2023 14:29:42 4.5 3.8-5.0 (g /dL) Final AST (Aspartate aminotransferase) 12/04/2023 14:29:42 15 10-35 (U/L) Final Alk Phos 12/04/2023 14:29:42 65 35-130 (U/ L) Final Bilirubin, Total 12/04/2023 14:29:42 0.2 <=1 .2 (mg/dL) Final Calcium 12/04/2023 14:29:42 9.7 8.4-10.2 ( mg/dL) Final Protein 12/04/2023 14:29:42 7.1 6.0-8.3 (g /dL) Final ALT (Alanine aminotransferase) 12/04/2023 14:29:42 15 10-35 (U/L) Final Performing Location [facility]ORATORY [facility] [address] [place] [address]
--- OUTSIDE RECORDS SUMMARY | 2023-12-06 06:35 | External Medical Summary | Summary of Care ---
Author Name Unknown Organization [facility] Address [address] [place] [address] Phone [phone] Care Team Providers Care Bet Taker Name Role Phone Rosita Sanchez PA-C Primary Care Provider [phone] Reason for Referral * Evaluate & Treat - Unlimited Visits (Within 10 days (routine)) - Authorized Specialty Diagnoses / Procedures Referred By Nandini gonsales Referred To Contact Pain Management / Pain Medicine Diagnoses Degeneration of intervertebral disc of lumbar region with discogenic back pain and lower extremity pain Paresthesia of left upper and lower extremity Yoanna Jara PA-C [address] [place] [address] Referral ID Status Reason Start Date Expiration Date Visits Requested Visits Authorized [id number] Authorized Specialty Services Required 4 [phone] Question Answer Referral Priority Within 10 days (routine) Where should this appointment be scheduled? ising Reason for referral? Interventional Pain Management - (Injection) What condition is the patient being referred for? Lumbar Radiculopathy What is the preferred location to have this test performed? [facility] Comments Patient Name: Adrienne Sanchez Date of : 1975 Department Phone Number: MRI or CT (if unable to have a MRI) is recommended if any of the following apply: 1. Patient has neck or back pain with radiation to extremities. A previous MRI will be accepted if symptoms unchanged since prior MRI. 2. Spinal surgery since last MRI. If yes, order a MRI with and without contrast. 3. Hx or ongoing cancer treatment. Patient will need spine x-ray (Ap/Lat) for axial neck or back pain if not done previously. Fax No. [facility] [phone] or contact front desk manager [phone] Fax No. [facility] [phone] or contact front desk manager [phone] Fax No. [facility] [phone] or contact front desk manager [phone] Reason for Visit * Reason Comments Acute Pt was here last wee k for back problems, xray spine showed DDD. Since then is experiencing more numbness/tingling symptoms in lower extremities and involuntary muscle movements. Left thumb is tingly intermittent. Bilat hip pain. Encounter Details Date Type Department Care Team (Latest Contact Info) Description 12/04/2023 1:00 PM EDT Office Visit [facility] [address] [facility] [place] [address] Yoanna Jara PA-C [address] [facility] [place] [address] Degeneration of intervertebral disc of lumbar region with discogenic back pain and lower extremity pain*; Paresthesia of left upper and lower extremity; Diverticulitis Allergies Active Allergy Reactions Criticality Noted Date Comments Aloe Rash 05/10/2012 Prednisone 08/10/2020 Heightened anxiety. SOB and palpitations. documented as of this encounter (statuses as of 12/04/2023) Medications Medication Sig Dispensed Refills Start Date End Date Status MULTIVITAMIN/MINERA LS 27-1 MG PO CAPS twice daily Activ e diphenhydrAMINE HCl 25 MG Oral Capsule (Benadryl) [...] morning. Active Ibuprofen 600 MG Oral Tablet (Motrin)Indications :Left lumbar radiculopathy,Anter olisthesis of lumbar spine Take 1 Tablet by mouth in the morning and 1 Tablet at noon and 1 Tablet before bedtime. with food for pain x7-10days. 30 Tablet 11/21/2023 Active Cyclobenzaprine HCl 10 MG Oral Tablet (Flexeril)Indicatio ns:Left lumbar radiculopathy,Anter olisthesis of lumbar spine Take 1 Tablet by mouth 2 times a day as needed for Muscle spasms. 20 Tablet 11/21/2023 Active Additional Information Patient not taking.Reported on 12/04/2023 Gabapentin 100 MG Oral Capsule (Neurontin)Indicati ons:Degeneration of intervertebral disc of lumbar region with discogenic back pain and lower extremity pain,Paresthesia of left upper and lower extremity Take 1 Capsule by mouth 3 times a day as needed (pain). 90 Capsule 1 12/04/2023 Active Pantoprazole Sodium 40 MG Oral Tablet Delayed Release (Protonix) Take 1 Tablet by mouth daily as needed. 4 Discontinu ed(Medicat ion List Clean Up) documented as of this encounter (statuses as of 12/04/2023) Active Problems Problem Noted Date Diagnosed Date Diverticulitis of sigmoid colon 09/28/2023 Diverticulitis of colon 10/02/2020 Rheumatoid arthritis of [facility] without rheumatoid factor 09/21/2015 Recurrent [...] PPD 10/06/2014,09/29/2014 Pneumococcal Conjugate Vacci ne, 20-valent ([id number]) 12/28/2021 Pneumococcal Polysaccharide PPV23 (Pneumovax) 02/24/2014 Seasonal [...] 03/04/2023 Does the household have a re lar source of income? (Household - for ages [...] Sign Reading Time Taken Comments Blood Pressure 112/70 12/04/2023 1:07 PM EDT Pulse 84 12/04/2023 1:07 PM EDT Temperature 36.9 C (98.5 F) 12/04/2023 1:07 PM ED T Respiratory Rate - - Oxygen Saturation 99% 12/04/2023 1:07 PM EDT Inhaled Oxygen Concentration - - Weight 69 kg (152 lb 1.9 oz) 12/04/2023 1:07 PM EDT Height - - Body Mass Index 22.46 11/21/2023 4:03 PM EDT documented in this encounter Progress Notes * Yoanna Jara PA-C - 12/04/2023 1:54 PM EDT Subjective Adrienne Daniel is a 48 year old adult that presents for Acute (Pt was here last week for back problems, xray spine showed DDD. Since then is experiencing more numbness/tingling symptoms in lower extremities and involuntary muscle movements. Left thumb is tingly intermittent. Bilat hip pain. ) 48 y/o female presents with worsening nerve pain in her legs. She states she was seen last week, had xray on her back and was found to have severe DDD in the lumbar spine, most noted in the L4/L5 region. She states the symptoms are worsening, and she is also having some numbness in her left hand/thumb and some jerking movements in the hand as well. She is having colectomy in two weeks for diverticulitis and wants to make sure there isn't anything wrong that would prevent her from having the surgery. She denies fevers, chills, rashes, chest pain, SOB, nausea, vomiting, diarrhea. Allergies and medications reviewed. Objective BP 112/70 (BP Cuff Size: Regular) | Pulse 84 | Temp 36.9 C (98.5 F) (Tympanic) | Wt 69 kg (152 lb 1.9 oz) | SpO2 99% | BMI 22.46 kg/m | BSA 1.83 m Body mass index is 22.46 kg/m. BP Readings from Last 3 Encounters: 12/04/23 112/70 11/21/23 100/60 10/12/23 101/72 Wt Readings from Last 3 Encounters: 12/04/23 69 kg (152 lb 1.9 oz) 11/21/23 69.9 kg (154 lb) 10/11/23 70.3 kg (155 lb) Physical Exam Vitals and nursing note reviewed. Constitutional: General: Adrienne is not in acute distress. Appearance: Normal appearance. HENT: Head: Normocephalic and atraumatic. Eyes: General: No scleral icterus. Extraocular Movements: Extraocular movements intact. Conjunctiva/sclera: Conjunctivae normal. Pupils: Pupils are equal, round, and reactive to light. Cardiovascular: Rate and Rhythm: Normal rate. Pulmonary: Effort: Pulmonary effort is normal. Skin: General: Skin is warm and dry. Findings: No rash. Neurological: General: No focal deficit present. Mental Status: Adrienne is alert and oriented to person, place, and time. Psychiatric: Mood and Affect: Mood normal. Behavior: Behavior normal. Assessment and plan 1. Degeneration of intervertebral disc of lumbar region with discogenic back pain and lower extremity pain - Gabapentin 100 MG Oral Capsule (Neurontin); Take 1 Capsule by mouth 3 times a day as needed (pain). Dispense: 90 Capsule; Refill: 1 - PAIN MEDICINE REFERRAL OP 2. Paresthesia of left upper and lower extremity - CBC WITH WBC DIFFERENTIAL; Future - IRON SCREEN, INCLUDING TIBC; Future - FERRITIN; Future - VITAMIN B12; Future - 25-HYDROXY VITAMIN D; Future - TSH WITH FREE T4 IF INDICATED; Future - COMPREHENSIVE METABOLIC PANEL; Future - LYME DISEASE ANTIBODY SCREEN WITH REFLEX TO CONFIRMATION; Future - Gabapentin 100 MG Oral Capsule (Neurontin); Take 1 Capsule by mouth 3 times a day as needed (pain). Dispense: 90 Capsule; Refill: 1 - PAIN MEDICINE REFERRAL OP 3. Diverticulitis - CBC WITH WBC DIFFERENTIAL; Future - IRON SCREEN, INCLUDING TIBC; Future - FERRITIN; Future - VITAMIN B12; Future - 25-HYDROXY VITAMIN D; Future - TSH WITH FREE T4 IF INDICATED; Future - COMPREHENSIVE METABOLIC PANEL; Future - LYME DISEASE ANTIBODY SCREEN WITH REFLEX TO CONFIRMATION; Future -will check labs to r/o organic cause -since she is having surgery in two weeks, cannot do steroid taper or NSAIDs, so will do PRN gabapentin to help with pain relief -home exercise PT program given and she will continue to try to get in to PT -referral for interventional pain management made today Total time today including reviewing chart before the visit, pertinent labs, imaging reports, face to face time, and documentation time was 25 minutes. The above was discussed and understanding was expressed. Yoanna Jara PA-C documented in this encounter Nursing Notes * Darrell Todd CMA - 12/04/2023 1:07 PM EDT The patient has been properly identified by confirmation of name and date of . Chief Complaint Patient presents with Acute Pt was here last week for back problems, xray spine showed DDD. Since then is experiencing more numbness/tingling symptoms in lower extremities and involuntary muscle movements. Left thumb is tingly intermittent. Bilat hip pain. documented in this encounter Plan of Treatment Upcoming Encounters Date Type Department Care Team (Latest Contact Info) Description 12/18/2023 12:05 PM EDT Hospital Encounter OR [facility], OPERATING ROOM [facility] [address] [place] [phone] Gregg Benjamin MD [address], [place] [id number] 12/18/2023 12:05 PM EDT - 12/18/2023 4:40 PM EDT Surgery OR [facility], OPERATING ROOM [facility] [address] [place] [id number] Gregg Benjamin MD [address] [place] [address] LAPAROSCOPIC PARTIAL COLECTOMY WITH COLOPROCTOSTOMY Scheduled Orders Name Type Priority Associated Diagnoses Orde r Schedule CBC WITH WBC DIFFERENTIAL Lab Routine Paresthesia of left upper and lower extremity Diverticulitis Expected: 12/04/2023 (Approximate), Expires: 12/03/2024 IRON SCREEN, INCLUDING TIBC Lab Routine Paresthesia of left upper and lower extremity Diverticulitis Expected: 12/04/2023 (Approximate), Expires: 12/03/2024 FERRITIN Lab Routine Paresthesia of left upper and lower extremity Diverticulitis Expected: 12/04/2023 (Approximate), Expires: 12/03/2024 VITAMIN B12 Lab Routine Paresthesia of left upper and lower extremity Diverticulitis Expected: 12/04/2023 (Approximate), Expires: 12/03/2024 25-HYDROXY VITAMIN D Lab Routine Paresthesia of left upper and lower extremity Diverticulitis Expected: 12/04/2023 (Approximate), Expires: 12/03/2024 TSH WITH FREE T4 IF INDICATED Lab Routine Paresthesia of left upper and lower extremity Diverticulitis Expected: 12/04/2023 (Approximate), Expires: 12/03/2024 COMPREHENSIVE METABOLIC PANEL Lab Routine Paresthesia of left upper and lower extremity Diverticulitis Expected: 12/04/2023 (Approximate), Expires: 12/03/2024 LYME DISEASE ANTIBODY SCREEN WITH REFLEX TO CONFIRMATION Lab Routine Paresthesia of left upper and lower extremity Diverticulitis Expected: 12/04/2023 (Approximate), Expires: 12/03/2024 Scheduled Procedures Name Priority Associated Diagnoses Date/Ti il LAPAROSCOPIC PARTIAL COLECTOMY WITH COLOPROCTOSTOMY Diverticulitis of sigmoid colon 12/18/2023 12:05 PM EDT Scheduled Referrals Name Type Priority Associated Diagnoses Orde r Schedule PAIN MEDICINE REFERRAL OP Referral Within 10 days (routine) Degeneration of intervertebral disc of lumbar region with discogenic back pain and lower extremity pain Paresthesia of left upper and lower extremity Ordered: 12/04/2023 Health Maintenance Due Date Last Done Comments [...] as of this encounter Visit Diagnoses Diagnosis Diverticulitis of sigmoid colon- Primary Diverticulitis of colon (without mention of hemorrhage) Degeneration of intervertebral disc of lumbar region with discogenic back pain and lower extremity pain- Primary Paresthesia of left upper and lower extremity Diverticulitis Diverticulitis of colon (without mention of hemorrhage) Diverticulitis of sigmoid colon Diverticulitis of colon (without mention of hemorrhage) documented in this encounter Care Teams Bet Taker Relationship Specialty Start Date End Date Rox[place] DEBI Talavera [address] [place] [address] PCP - General Physician Marine Fire Fighter 09/04/23 documented as of this encounter"
--- OUTSIDE RECORDS SUMMARY | 2023-12-06 06:35 | External Medical Summary ---
Author Name Unknown Address Unknown Organization [id number]:LABORATORY [facility] - [address] [facility] [place] [address] Laboratory Report Ordering Provider Test Date Status DOUGLAS CARLSON 12/04/2023 14:29:42 Final Deficient: <20 ng/mL
Ins ufficient: 20-29 ng/mL
Recommended/Optimum:30-50 ng/mL

Vitamin D intoxication is rare. If suspicious of Vitamin D toxicity, evaluation of serum Calcium and PTH is recommended. Observation Date Value Abnormality Reference (Units ) Status 25-OH Vitamin D total 12/04/2023 14:29:42 30 >19 (ng/mL) Final Performing Location LABORATORY C - [address] [place] [address]
--- OUTSIDE RECORDS SUMMARY | 2023-12-06 06:35 | External Medical Summary ---
Author Name Unknown Address Unknown Organization [id number]:LABORATORY [facility] - [address] [facility] [address] Laboratory Report Ordering Provider Test Date Status SHIV CARLSONTHER 12/04/2023 14:29:42 Final Observation Date Value Abnormality Reference (Units ) Status Ferritin 12/04/2023 14:29:42 152 Above high normal 13 -150 (ng/mL) Final Postmenopausal women have hi gher ferritin levels than pre-menopausal women. The above reference interval is based on pre-menopausal women.
The above reference range is based on the legal sex of the patient only. Results should be interpreted together with patient's sex at , gender identity, and clinical context. Performing Location LABORATORY [facility] - [address] [place] [facility] [address]
[2023-12-06 07:13] LABS: Basophils # (auto) 0.04 K/uL (0.00-0.20); Basophils % (auto) 0.6 %; Eosinophils # (auto) 0.13 K/uL (0.00-0.50); Hematocrit (blood only) 37.2 % (37.0-47.0); Hemoglobin 12.5 g/dl (12.0-16.0); Immature Granulocytes # (auto) 0.02 K/uL (0.01-0.20); Immature Granulocytes % (auto) 0.3 %; Lymphocytes # (auto) 2.27 K/uL (1.20-3.40); Lymphocytes % (auto) 34.2 %; Mean Corpuscular Hemoglobin 28.6 pg (25.0-34.0); Mean Corpuscular Hgb Conc 33.6 g/dL (32.0-36.0); Mean Corpuscular Volume 85.1 fL (80.0-100.0); Mean Platelet Volume 9.4 fL (9.4-12.4); Monocytes % (auto) 7.5 %; Neutrophils # (auto) 3.67 K/uL (1.40-6.50); Neutrophils % (auto) 55.4 %; Platelet Count 243 K/uL (130-400); RDW Coefficient of Variation 12.7 % (11.5-14.5); Red Blood Count 4.37 M/uL (4.20-5.40); White Blood Count 6.63 K/ul (4.8-10.8)
[2023-12-06 07:32] LABS: BUN Creatinine Ratio 15.2 (10-20); Calcium 9.1 mg/dl (8.6-10.3); Chol HDL Ratio 2.8 (0-5); Creatinine Clr Calc Pharmacy 97.6 ml/min; Potassium 3.8 mmol/L (3.5-5.1)
[2023-12-06 07:42] LABS: Estimated Average Glucose 120 mg/dl; Hemoglobin A1C 5.8 % (4.5-5.6)
--- NOTE | 2023-12-06 08:00 | Electrocardiogram Report ---
Test Reason : Blood Pressure : */* mmHG Vent. Rate : 64 BPM Atrial Rate : 64 BPM P-R Int : 142 ms QRS Dur : 78 ms QT Int : 380 ms P-R-T Axes : 60 60 56 degrees QTcB Int : 392 ms Normal sinus rhythm Normal ECG When compared with ECG of 16-Aug-2023 08:56, Vent. rate has decreased by [address] abnormality no longer present Confirmed by Josué Yepez ([id number]) on 12/06/2023 7:59:39 AM Referred By: Confirmed By: Josué Yepez
[2023-12-06] MEDS: POLYETHYLENE (MIRALAX) 17 GM PACK PO SCH (08:15)
[2023-12-06] MEDS: ESCITALOPRAM OXALATE 10 MG TAB PO SCH (08:15)
[2023-12-06] MEDS: ACETAMINOPHEN 325 MG TAB PO PRN (09:50)
--- OUTSIDE RECORDS SUMMARY | 2023-12-06 10:10 | External Medical Summary | Summary of Care ---
Author Name Unknown Organization [facility] Address [address] [place] [address] Phone [phone] Care Team Providers Care Slackline Operator Name Role Phone Rosita Sanchez PA-C Primary Care Provider [phone] Reason for Visit * Reason Comments Follow Up Encounter Details Date Type Department Care Team (Latest Contact Info) Description 12/05/2023 2:40 PM EDT Telemedicine General Internal Medicine [facility] [address] [place] [address] Maritza Jones PA-C [address] [place] [address] Weakness of both legs*; Numbness and tingling of both legs; Paresthesias in left hand; Pressure in head; Anterolisthesis of lumbar spine; Degeneration of intervertebral disc of lumbar region with discogenic back pain and lower extremity pain; Anxiety Allergies Active Allergy Reactions Criticality Noted Date Comments Aloe Rash 05/10/2012 Prednisone 08/10/2020 Heightened anxiety. SOB and palpitations. documented as of this encounter (statuses as of 12/05/2023) Medications Medication Sig Dispensed Refills Start Date End Date Status MULTIVITAMIN/MINERAL S 27-1 MG PO CAPS twice daily Active diphenhydrAMINE HCl 25 MG Oral Capsule (Benadryl) Take 1 Capsule by mouth every 6 hours as needed for Itching (allergy symptoms). Takes a few times per week Active Melatonin 3 MG Oral Tablet 3 Tablets. 03/01/2023 Active Polyethylene Glycol 3350 17 GM Oral Packet [...] for pain x7-10days. 30 Tablet 11/21/2023 Active Gabapentin 100 MG Oral Capsule (Neurontin)Indicatio ns:Degeneration of intervertebral disc of lumbar region with discogenic back pain and lower extremity pain,Paresthesia of left upper and lower extremity Take 1 Capsule by mouth 3 times a day as needed (pain). 90 Capsule 1 12/04/2023 Active Escitalopram Oxalate 10 MG Oral Tablet (Lexapro) Take 1 Tablet by mouth in the morning. 30 Tablet 5 12/05/2023 Active ALPRAZolam 0.5 MG Oral Tablet (Xanax) 1-2 tabs prior to travel 10 Tablet 06/05/2023 4 Discontinue d(Medicatio n List Clean Up) Cyclobenzaprine HCl 10 MG Oral Tablet (Flexeril)Indication s:Left lumbar radiculopathy,Balta listhesis of lumbar spine Take 1 Tablet by mouth 2 times a day as needed for Muscle spasms. 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 (Household - for ages [...] 18 years and over) Not on file 4 Are you (or your family) josh eless [...] EST Gender Identity Choose not to disclose 4 6:14 AM EST Sexual Orientation Choose not to disclose 2023 6:14 AM EST Job Start Date Occupation Industry Not on file Not on file Not on file documented as of this encounter Progress Notes * Maritza Jones PA-C - 12/05/2023 2:44 PM EDT Images from the original note were not included. History of Present Illness Adrienne Sanchez is a 48 year old adult that presents for Follow Up Patient location: HOME. I was in a hospital or clinic location. After connecting through televideo,patient was verified with two unique identifiers. Patient (or authorized legal passenger service representative) was then informed that this was a Telemedicine visit and being conducted confidentially over secure lines. Methods to assure confidentiality were taken. Patient acknowledged consent and understanding of pr ivacy and security of the Telemedicine visit. The patient agreed to participate. Pt seen today via video for f/up of lab results and symptoms. Pt reports symptoms began with severelow back pain. Reports she stayed in bed for several days and this eventually improved. Then developed pressure in the R side of her head and face--presented to [facility] ER on 11/23 for eval. Labs were unrevealing. No imaging was done at that time. Per ER report pt declined. Then on 11/26 pt developed tingling of fernanda legs and feet, as well as tingling of L arm and hand. Also reports significant weakness and shakiness of legs as well. Denies any bowel or bladder incontinence. Pt reports this morning all of the above symptoms were present and more intense than ever. Pt has developed significant anxiety as a result. She is also scheduled for a partial colectomy soon for diverticulosis. Review of Systems: See HPI for pertinent positives. All other review of systems is negative. Physical Exam There were no vitals filed for this visit. Physical Exam Constitutional: General: Adrienne is not in acute distress. Pulmonary: Effort: Pulmonary effort is normal. Neurological: Mental Status: Adrienne is alert and oriented to person, place, and time. Psychiatric: Mood and Affect: Mood normal. Behavior: Behavior normal. I have reviewed the following results: Assessment and Plan Weakness of both legs Discussed with pt the need for further imaging--especially if symptoms are progressing. Needs to beevaluated in person for this. Pt states she will proceed to the ER for urgent evaluation and testing. Numbness and tingling of both legs See above. Paresthesias in left hand See above. Pressure in head See above. Anterolisthesis of lumbar spine See above. Degeneration of intervertebral disc of lumbar region with discogenic back pain and lower extremity pain See above. Anxiety Pt would like to restart Lexapro that she took previously for anxiety. Did well on it. Rx sent. Wrap-Up Pt proceeding to ER for acute eval and treatment. Time: I spent a total of 40-54 minutes (exact time 46 mins) on the date of service in preparation, delivery, and documentation of the care provided to Adrienne Sanchez excluding any time spent in the performance of separately billed services. Telemedicine: Patient location: HOME. I was in a hospital or clinic location. After connecting through televideo,patient was verified with two unique identifiers. Patient (or authorized legal passenger service representative) was then informed that this [...] 12/18/2023 12:05 PM EDT Hospital Encounter OR [facility], OPERATING ROOM [facility] [address] [place] [address] Gregg Benjamin MD [address] [place], [place] [id number] 12/18/2023 12:05 PM EDT - 12/18/2023 4:40 PM EDT Surgery OR [facility], OPERATING ROOM [facility] [address] [place] [address] Gregg Benjamin MD [address], [place] [id number] LAPAROSCOPIC PARTIAL COLECTOMY WITH COLOPROCTOSTOMY Scheduled Procedures Name Priority Associated Diagnoses Date/Ti [...] Diverticulitis of colon (without mention of hemorrhage) Weakness of both legs- Primary Other musculoskeletal symptoms referable to limbs Numbness and tingling of both legs Disturbance of skin sensation Paresthesias in left hand Disturbance of skin sensation Pressure in head Headache 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
--- NOTE | 2023-12-06 12:48 | Hospitalist Progress Note ---
Date of Service December 06, 2023 Assessment & Plan (1) Stroke-like symptoms: Plan: 48-year-old female with past medical history significant for rheumatoid arthritis of multiple sites without rheumatoid factor, recurrent iritis of right eye, migraine variant, history genital warts, history of recurrent diverticulitis for which patient is scheduled for surgery end of this month and she is taking MiraLAX daily in preparation for the surgery comes because of s trokelike symptoms. Patient says since November 23 she is feeling pressure in the head. Since last couple of weeks she is she feeling foggy in her brain. Since last week she is feeling numbness and a tinglining in the both lower extremities more in the left lower extremity and also weakness in the left thumb. Because of ongoing symptoms she came to the ER today. She was also recently diagnosed with lumbar disc disease and is prescribed gabapentin as needed. Patient denies any blurred visions or double vision. No earache. No runny nose or sore throat. No cough. No fevers. Whenever she feels fogginess in her brain she has some difficulty swallowing which last about half hour and as fogginess resolves she can swallow okay. No nausea. No abdominal pain. Normal bowel and bladder movements. Denies any bloody stools. No rash. Initially today she was not able to ambulate much but in the ER currently she was able to ambulate okay. Hemodynamics are okay. Strokelike symptoms DD: Possible Complicated Migraine H/O Migraine Reports pressure in the head since November 23. Fogginess of brain since last 2 weeks. Numbness and weakness of lower extremity more in right leg and weakness of left thumb since last 1 week --MRI Brain:No evidence of acute intracranial pathology. --Head CTA:Negative CT angiogram of the head. --Neck CTA:Negative CTA neck. --LDL: 92 --A1C:5.8 --ECHO pending Continue Neuro Checks PT/OT/Speech evaluation Check TSH, Vitamin b12 Dizziness Check Orthostatics Continue gentle IV fluids Hypokalemia Replete and monitor Degenerative lumbar disease On gabapentin as needed Off note: Patient has not started her gabapentin yet H/O Recurrent Diverticulitis Chronic constipation Scheduled for elective surgery on Miralax DVT prophylaxis SCDs for now Code Status Full code. Disposition Expect to discharge home as able Admission and Anticipated Discharge Date Admission Date: December 06, 2023 Subjective Patient is seen and examined at bedside Lower extremity tingling and numbness improved States having headache and dizziness today Reports chronic loose BMs due to miralax use No other complaints Family at bedside Review of Systems Review of Systems: All systems reviewed & are unremarkable except as noted in Subjective Physical Exam Physical Exam: Physical Exam: Vitals signs as noted above General Appearance:Moderately built and nourished, no apparent distress Head: normocephalic, Atraumatic Eyes: normal inspection, EOMI Neck: supple, Trachea midline Respiratory/Chest: Normal breath sounds, CTA, No accessory muscle use Cardiovascular: S1, S2, No murmur Abdomen/GI:Soft, Non tender, Bowel sounds present Extremities/Musculoskeletal:normal inspection, no edema Neurologic/Psych:AAOX3, grossly no focal neurological deficits Skin: normal color, warm Results & Data Results & Data Vital Signs (Past 12 Hours) Vital Signs Pulse Pulse Resp BP BP Pulse Ox Pulse Ox 12/06/23 08:24 84 18 125/76 100 12/06/23 07:13 64 12/06/23 06:41 115/71 12/06/23 06:24 59 L 14 12/06/23 06:09 66 15 12/06/23 05:00 68 15 12/06/23 03:06 68 15 98 12/06/23 03:05 98 12/06/23 01:34 79 14 129/94 O2 Del Method O2 Del Method 12/06/23 08:24 Room Air 12/06/23 07:13 12/06/23 06:41 12/06/23 06:24 12/06/23 06:09 12/06/23 05:00 12/06/23 03:06 12/06/23 03:05 Room Air 12/06/23 01:34 Room Air Laboratory Results Short CBC 12/05/23 12/06/23 Range/Units 16:20 06:53 WBC 6.55 6.63 (4.8-10.8) K/ul Hgb 13.5 12.5 (12.0-16.0) g/dl Hct 39.9 37.2 (37.0-47.0) % Plt Count 302 243 (130-400) K/uL BMP 12/05/23 12/06/23 16:20 06:53 Sodium 142 141 Potassium 3.4 L 3.8 Chloride 107 107 Carbon Dioxide 25 26 BUN 12 10 Creatinine 0.66 0.66 Glucose 93 83 Calcium 10.2 9.1 Liver Function 12/05/23 Range/Units 16:20 Total Bilirubin 0.4 (0.2-1.0) mg/dl AST 16 (13-39) U/L ALT 16 (7-52) U/L Alkaline Phosphatase 57 (34-104) U/L Albumin 4.8 (3.4-5.0) gm/dl Urine 12/05/23 Range/Units Unknown Urine Color Yellow Urine Appearance Cloudy A (Clear) Urine pH 8.5 H (4.5-7.5) Ur Specific [place] 1.011 (1.000-1.030) Urine Protein Negative (Negative) Urine Glucose (UA) Negative (Negative)
[2023-12-06] MEDS: GABAPENTIN 100 MG CAP PO PRN (13:18)
--- NOTE | 2023-12-06 16:32 | Neurology Consultation ---
Date of Consultation December 06, 2023 Assessment & Plan (1) Stroke-like symptoms: likely stroke rule out with a negative MRI of the brain , CTA with no acute changes. (2) Numbness and tingling: with no known focalities or specific nerve distribution . Plan Given history of possible rheumatoid arthritis, cannot rule atlantoaxial pathology contributing to her symptoms/ chronic back pain . Recommend MRI of the C-spine with and without contrast. MRI of the T and L-spine with and without contrast Check ESR, CRP, -Continue gabapentin 100 mg 3 times daily. -Consider baclofen 5 mg 3 times daily for 5 days. -Further recommendations to follow Telehealth Consultation Telehealth Information Telehealth Information: I performed this visit using a real-time telehealth connection between my location and the patients location ([facility]). After connecting through interactive tele-video, patient was identified by name and date of and/or wristband check.Patient (or authorized healthcare physician relations representative) was informed that this was a telemedicine visit and it was being conducted confidentially over secure lines. My office door was closed and no one else was present in the room with me.Patient (or authorized healthcare physician relations representative) provided consent to proceed with the visit, expressed an understanding of privacy and security of the telemedicine visit, and gave permission to have a hospital physician relations representative in the room in order to assist with the visit and to conduct portions of the visit, as needed. I informed the patient (or authorized healthcare physician relations representative) that I reviewed their record and presented the opportunity for them to ask any questions regarding the visit today. The patient agreed to participate. History of Present Illness Reason for Consultation: numbness and tingling Requesting Physician: Dr Breaux Attending Physician: Lj Breaux MD History of Present Illness 48-year-old female patient with PMH of questionable rheumatoid arthritis. Recurrent arthritis of the right eye, history of recurrent diverticulitis, scheduled for surgery at the end of this month, taking MiraLAX daily. Presented to the ED reporting a pressure-like sensation affecting his head since November in addition to numbness and tingling of both of her extremities. Also reports numbness and weakness of the left side more than the right side. The patient has multiple neurological complaints including pressure-like sensation on the right side of her head, neck stiffness that has been bothering her more since the beginning of the month. She reports that yesterday she went for a walk and when she came back her left leg was numb for about 30 minutes. Numbness involves her whole foot and leg up to the below-knee level. She reports numbness at the base of her left thumb, she sometimes feels like her left thumb is stiff. She reports chronic history of migraine headaches with worsening over the past 2 weeks. She has difficulty opening bottles with it. She denies any new visual changes. Denies any speech or gait changes. Allergies Allergy/AdvReac Type Severity Reaction Status Date / Time aloe Allergy Mild RASH Verified 11/26/23 15:57 Home Medications Medication Instructions Recorded Confirmed Type escitalopram oxalate 10 mg tablet 10 mg PO DAILY 12/06/23 12/06/23 History gabapentin 100 mg capsule 100 mg PO TID PRN Pain 12/06/23 12/06/23 History polyethylene glycol 3350 17 gram 17 g PO DAILY 12/06/23 12/06/23 History oral powder packet (Miralax) Patient History Medical History (Updated 12/06/23 @ 16:26 by Stephon Bueno MD) Diverticulitis Osteoarthritis Gout Anxiety Migraine Reactive airway disease Surgical History H/O right knee surgery BENIGN TUMOR REMOVED History of section X2 History of dilatation and curettage History of tooth extraction WISDOM TEETH Family History Brother Family history of diabetes mellitus Grandmother Family history of diabetes mellitus MATERNAL AND PATERNAL Social History Smoking Status: Current some day smoker Tobacco Type: E-cigarettes / Vaping Second Hand Exposure: Yes; Do You Dip or Chew Tobacco: No; Tobacco Cessation Education Requested by Patient: No Hx Alcohol Use: Yes Alcohol type: hard liquor Hx Substance Use: No Preferred Language: Faroese Communication Ability: Effective Analytical Consultant Required: No Beliefs That Will Affect Care: None Current Living Situation: Spouse Current Living Situation Comment: Lives at home with and 2 children Other Information That Helps Us Care for You: No Feels Safe at Home: Yes Safety Concerns: Feels Safe At This Time Assistive Devices: None Review of Systems Negative except for the points mentioned in HPI. Physical Exam General Constitutional: Appearance normally developed Head and face: normocephalic and atraumatic Eyes: no ptosis, no anisocoria, and no dysconjugate gaze Respiratory: normal effort Cardiovascular: regular rhythm and regular rate Abdomen: non distended Skin: no rashes, lesions, or ulcers noted Psychiatric: normal judgement and insight, normal mood, and normal affect NEUROLOGIC EXAMINATION: Mental Status:alert, oriented to time, place, person, normal recent memory, normal remote memory, normal attention span, normal concentration, normal language and normal fund of knowledge Cranial Nerves: CN 2 - no visual defect on confrontation and pupils round, equal, reactive to light CN 3, 4, 6 - extra-ocular movements intact and no nystagmus CN 5 - facial sensation intact CN 7 - no facial asymmetry CN 8 - intact hearing CN 9, 10 - palate symmetric, normal gag CN 11 - good shoulder shrug CN 12 - tongue midline MOTOR: Strength was at least antigravity throughout, Pronator drift was absent and There were no abnormal movements SENSATION: intact and symmetric to pinprick, light touch, vibration and joint position GAIT: stable, no ataxia and can perform tandem walking COORDINATION: no ataxia with finger to nose testing and heel to thayer testing REFLEXES: cannot assess over telemedicine Results & Data Vital Signs (Past 12 Hours) Vital Signs Temp Pulse Pulse Resp BP BP Pulse Ox 12/06/23 16:03 36.9 C 77 14 122/87 99 12/06/23 08:24 84 18 125/76 100 12/06/23 07:13 64 12/06/23 06:41 115/71 12/06/23 06:24 59 L 14 12/06/23 06:09 66 15 12/06/23 05:00 68 15 O2 Del Method 12/06/23 16:03 Room Air 12/06/23 08:24 Room Air 12/06/23 07:13 12/06/23 06:41 12/06/23 06:24 12/06/23 06:09 12/06/23 05:00 Laboratory Results Laboratory Results - last 24 hr 12/05/23 12/05/23 12/05/23 16:20 16:24 Unknown WBC 6.55 RBC 4.75 Hgb 13.5 Hct 39.9 MCV 84.0 MCH 28.4 MCHC 33.8 RDW Std Deviation 38.4 RDW Coeff of Daniela 12.7 Plt Count 302 MPV 10.4 Immature Gran % (Auto) 0.2 Neut % (Auto) 58.6 Lymph % (Auto) 33.4 [place] % (Auto) 5.8 Eos % (Auto) 1.5 Baso % (Auto) 0.5 Neut # (Auto) 3.84 Lymph # (Auto) 2.19 [place] # (Auto) 0.38 Eos # (Auto) 0.10 Baso # (Auto) 0.03 Immature Gran # (Auto) 0.01 PT 10.3 INR 0.9 APTT 34 H PTT Ratio 1.3 Sodium 142 Potassium 3.4 L Chloride 107 Carbon Dioxide 25 Anion Gap 10 BUN 12 Creatinine 0.66 Est Cr Clr Drug Dosing 97.6 eGFR 108.14 BUN/Creatinine Ratio 18.2 Glucose 93 Estimat Average Glucose Hemoglobin A1c Calcium 10.2 Magnesium 2.1 Total Bilirubin 0.4 AST 16 ALT 16 Alkaline Phosphatase 57 Total Protein 8.1 Albumin 4.8 Globulin 3.3 Albumin/Globulin Ratio 1.5 Triglycerides Cholesterol LDL Cholesterol, Calc VLDL Cholesterol, Calc HDL Cholesterol Cholesterol/HDL Ratio Urine Color Yellow Urine Appearance Cloudy A Urine pH 8.5 H Ur Specific [place] 1.011 Urine Protein Negative Urine Glucose (UA) Negative Urine Ketones Negative Urine Blood Negative Urine Nitrite Negative Urine Bilirubin Negative Urine Urobilinogen Negative Ur Leukocyte Esterase 1+ H Urine WBC (Auto) 6-10 H Urine RBC (Auto) 0-2 U Hyaline Cast (Auto) 0-2 U Epithel Cells (Auto) 0-2 Urine Bacteria (Auto) None Seen 12/06/23 06:53 WBC 6.63 RBC 4.37 Hgb 12.5 Hct 37.2 MCV 85.1 MCH 28.6 MCHC 33.6 RDW Std Deviation 39.0 RDW Coeff of Daniela 12.7 Plt Count 243 MPV 9.4 Immature Gran % (Auto) 0.3 Neut % (Auto) 55.4 Lymph % (Auto) 34.2 [place] % (Auto) 7.5 Eos % (Auto) 2.0 Baso % (Auto) 0.6 Neut # (Auto) 3.67 Lymph # (Auto) 2.27 [place] # (Auto) 0.50 Eos # (Auto) 0.13 Baso # (Auto) 0.04 Immature Gran # (Auto) 0.02 PT INR APTT PTT Ratio Sodium 141 Potassium 3.8 Chloride 107 Carbon Dioxide 26 Anion Gap 8 BUN 10 Creatinine 0.66 Est Cr Clr Drug Dosing 97.6 eGFR 108.14 BUN/Creatinine Ratio 15.2 Glucose 83 Estimat Average Glucose 120 Hemoglobin A1c 5.8 H Calcium 9.1 Magnesium Total Bilirubin AST ALT Alkaline Phosphatase Total Protein Albumin Globulin Albumin/Globulin Ratio Triglycerides 110 Cholesterol 176 LDL Cholesterol, Calc 92 VLDL Cholesterol, Calc 22 HDL Cholesterol 62 Cholesterol/HDL Ratio 2.8 Urine Color Urine Appearance Urine pH Ur Specific [place] Urine Protein Urine Glucose (UA) Urine Ketones Urine Blood Urine Nitrite Urine Bilirubin Urine Urobilinogen Ur Leukocyte Esterase Urine WBC (Auto) Urine RBC (Auto) U Hyaline Cast (Auto) U Epithel Cells (Auto) Urine Bacteria (Auto) Diagnostic Findings Chest X-Ray 12/05/23 17:51 SINGLE VIEW CHEST CLINICAL HISTORY: Strokelike symptoms. FINDINGS: An AP, portable, upright chest radiograph is compared to study dated 08/16/2023. The cardiomediastinal silhouette is unremarkable. Calcified granulomas are seen at the left lung base. The lungs and pleural spaces are otherwise clear. No pneumothorax is seen. The bony thorax is grossly intact. IMPRESSION: No active disease in the chest. ACT 112: Negative or not required by law. Electronically signed by: Lowell Keen M.D. 12/05/2023 7:[address] 12/05/23 17:51 Exam(s): CT HEAD Without Contrast EXAM: CT Head Without Intravenous Contrast CLINICAL HISTORY: Reason for exam: Neuro deficit, acute, stroke suspected. TECHNIQUE: Axial computed tomography images of the head/brain without intravenous contrast. CTDI is 37.87 mGy and DLP is 546.36 mGy-cm. Automated exposure control was utilized for the study. A dose lowering technique was utilized adhering to the principles of ALARA. COMPARISON: August 16, 2023 FINDINGS: Brain: Unremarkable. No hemorrhage. No significant white matter disease. No edema. Ventricles: Unremarkable. No ventriculomegaly. Bones/joints: Unremarkable. No acute fracture. Soft tissues: Unremarkable. Sinuses: Unremarkable as visualized. No acute sinusitis. Mastoid air cells: Unremarkable as visualized. No mastoid effusion. IMPRESSION: No acute intracranial abnormality Electronically signed by: Octavio Fraga MD 12/05/23 20:44 PM Brain MRI 12/06/23 03:05 Exam(s): MRI HEAD W/WO Contrast IV Amt: 6.5cc gadavist EXAM: MR Head Without and With Intravenous Contrast CLINICAL HISTORY: Reason for exam: sttroke like symptoms. TECHNIQUE: Magnetic resonance images of the head/brain without and with intravenous contrast in multiple planes. CONTRAST: Patient received 6.5cc gadavist of IV contrast COMPARISON: Prior head CT from December 05, 2023. FINDINGS: Brain: Minimal nonspecific white matter changes. No mass. No hemorrhage. No acute infarct. The flow voids at the base the brain are intact. Tiny left choroidal fissure cyst. There is a tiny left cerebellar developmental venous anomaly. The dural venous sinuses are patent. Ventricles: Unremarkable. No ventriculomegaly. Bones/joints: Unremarkable. No acute fracture. Sinuses: Unremarkable as visualized. No acute sinusitis. Mastoid air cells: Unremarkable as visualized. No mastoid effusion. Orbits: Unremarkable as visualized. IMPRESSION: No evidence of acute intracranial pathology. Electronically signed by: Marisela Carreno MD 12/06/23 05:46 AM Head CTA 12/06/23 03:05 Exam(s): CTA HEAD With Contrast IV Amt: 118 ML OPTIRAY 320 EXAM: CT Angiography Head With Intravenous Contrast CLINICAL HISTORY: Reason for exam: cva?. TECHNIQUE: Axial computed tomographic angiography images of the head with intravenous contrast. CTDI is 36.48 mGy and DLP is 470.66 mGy-cm. Automated exposure control was utilized for the study. A dose lowering technique was utilized adhering to the principles of ALARA. MIP reconstructed images were created and reviewed. CONTRAST: Patient received 118 ML OPTIRAY 320 of IV contrast COMPARISON: No relevant prior studies available. FINDINGS: The dural venous sinuses are patent. Right internal carotid artery: No acute findings. Intracranial segment is patent with no significant stenosis. No aneurysm. Right anterior cerebral artery: Unremarkable. No occlusion or significant stenosis. No aneurysm. Right middle cerebral artery: Unremarkable. No occlusion or significant stenosis. No aneurysm. Right posterior cerebral artery: Unremarkable. No occlusion or significant stenosis. No aneurysm. Right vertebral artery: Unremarkable as visualized. Left internal carotid artery: No acute findings. Intracranial segment is patent with no significant stenosis. No aneurysm. Left anterior cerebral artery: Unremarkable. No occlusion or significant stenosis. No aneurysm. Left middle cerebral artery: Unremarkable. No occlusion or significant stenosis. No aneurysm. Left posterior cerebral artery: Unremarkable. No occlusion or significant stenosis. No aneurysm. Left vertebral artery: Unremarkable as visualized. Basilar artery: Unremarkable. No occlusion or significant stenosis. No aneurysm. IMPRESSION: Negative CT angiogram of the head. Electronically signed by: Marisela Carreno MD 12/06/23 04:11 AM Neck CTA 12/06/23 03:05 Exam(s): CTA NECK With Contrast IV Amt: 118 ML OPTIRAY 320 EXAM: CT Angiography Neck With Intravenous Contrast CLINICAL HISTORY: Reason for exam: cva?. TECHNIQUE: Routine carotid CT angiography protocol was performed with intravenous contrast. NASCET criteria using the distal ICAs for comparison were used for evaluation of stenoses. CTDI is 36.48 mGy and DLP is 470.66 mGy-cm. Automated exposure control was utilized for the study. A dose lowering technique was utilized adhering to the principles of ALARA. MIP reconstructed images were created and reviewed. CONTRAST: Patient received 118 ML OPTIRAY 320 of IV contrast COMPARISON: None. FINDINGS: VASCULATURE: Right common carotid artery: Unremarkable. No occlusion or significant stenosis. No dissection. Right internal carotid artery: Unremarkable. Extracranial segment is patent with no occlusion or significant stenosis. No dissection. Right external carotid artery: Unremarkable. No occlusion. Right vertebral artery: Unremarkable. No occlusion or significant stenosis. No dissection. Left common carotid artery: Unremarkable. No occlusion or significant stenosis. No dissection. Left internal carotid artery: Unremarkable. Extracranial segment is patent with no occlusion or significant stenosis. No dissection. Left external carotid artery: Unremarkable. No occlusion. Left vertebral artery: Unremarkable. No occlusion or significant stenosis. No dissection. NECK: Bones/joints: Unremarkable. No acute fracture. Soft tissues: Unremarkable. Lung apices: Clear. CAROTID STENOSIS REFERENCE USING NASCET CRITERIA: % ICA stenosis = (1 - narrowest ICA diameter/diameter of distal cervical ICA) x 100. Mild - <50% stenosis. Moderate - 50-69% stenosis. Severe - 70-94% stenosis. Near occlusion - 95-99% stenosis. Occluded - 100% stenosis. IMPRESSION: Negative CTA neck. Electronically signed by: Marisela Carreno MD 12/06/23 04:12 AM
[2023-12-06] MEDS: LORazepam 0.5 MG TAB PO PRN (20:26)
[2023-12-06] MEDS: GADOBUTROL 65ML VIAL IV ONE (23:23)
--- NOTE | 2023-12-07 00:49 | Magnetic Resonance Report ---
Exam(s): MRI C SPINE IV Amt: 6.5cc gadavist EXAM: MR Cervical Spine With Intravenous Contrast CLINICAL HISTORY: Reason for exam: Stroke like symptoms R/O atlantoaxial arthritis. TECHNIQUE: Magnetic resonance images of the cervical spine with intravenous contrast in multiple planes. CONTRAST: Patient received 6.5cc gadavist of IV contrast COMPARISON: Prior CT angiogram of the neck from December 06, 2023. FINDINGS: Vertebrae: There are 7 cervical type vertebral bodies with a mild generalized curve to the right and normal cervical lordosis. There is normal vertebral body height and alignment. The bone marrow signal is normal. No acute fracture. Spinal cord: The cord is normal size, shape and signal characteristics. No abnormal enhancement. Soft tissues: The cervical flow voids are intact. DISCS/SPINAL CANAL/NEURAL FORAMINA: C2-C3: Unremarkable. No significant disc disease. No stenosis. C3-C4: Unremarkable. No significant disc disease. No stenosis. C4-C5: Unremarkable. No significant disc disease. No stenosis. C5-C6: Unremarkable. No significant disc disease. No stenosis. C6-C7: Unremarkable. No significant disc disease. No stenosis. C7-T1: Unremarkable. No significant disc disease. No stenosis. IMPRESSION: Negative MRI of the cervical spine. Electronically signed by: Marisela Carreno MD 12/07/23 00:48 AM
--- NOTE | 2023-12-07 01:13 | Magnetic Resonance Report ---
Exam(s): MRI L SPINE W/WO Contrast IV Amt: 6.5cc gadavist EXAM: MR Lumbar Spine Without and With Intravenous Contrast CLINICAL HISTORY: Reason for exam: Stroke like symptoms. TECHNIQUE: Magnetic resonance images of the lumbar spine without and with intravenous contrast in multiple planes. CONTRAST: Patient received 6.5cc gadavist of IV contrast COMPARISON: No relevant prior studies available. FINDINGS: Vertebrae: There are 5 lumbar type vertebral bodies with a mild levoscoliosis and shallow lumbar lordosis. There is mild grade 1 anterolisthesis of L4 on L5 measuring 7 mm. Otherwise, there is normal vertebral body height and alignment. The bone marrow signal is heterogeneous with reactive endplate changes at L4-5. There are bilateral L4 pars defects. No acute fracture. Spinal cord: The conus is normal size, shape and signal characteristics, terminating at T12-L1. No abnormal enhancement. Soft tissues: Unremarkable. DISCS/SPINAL CANAL/NEURAL FORAMINA: L1-L2: The intervertebral disc is normal. L2-L3: The intervertebral disc is normal. L3-L4: The intervertebral disc is normal. L4-L5: Advanced disc degeneration with annular disc bulging asymmetric to the left causing a mild subarticular recess stenosis with disc extending to the neural foramina causing moderate bilateral stenosis with impingement of the L4 nerve or ganglia. L5-S1: Moderate disc degeneration with annular disc bulge asymmetric to the left causing a mild right and moderate left subarticular recess stenosis with mild impingement of the transiting left S1 nerve root. IMPRESSION: 1. Advanced disc degeneration at L4-5 and moderate disc degeneration and L5-S1 with annular disc bulging causing mild subarticular recess stenosis at L4-5 and a mild right and moderate left subarticular recess stenosis at L5-S1 with impingement of the transiting left S1 nerve root. 2. There is no spinal canal stenosis. 3. There is moderate bilateral L4-5 neural foraminal stenosis with impingement of the L4 nerve or ganglia. 4. No evidence of acute fracture, infection, tumor or arachnoiditis. Electronically signed by: Marisela Carreno MD 12/07/23 01:12 AM
--- NOTE | 2023-12-07 01:36 | Magnetic Resonance Report ---
Exam(s): MRI T SPINE W/WO Contrast IV Amt: 6.5cc gadavist EXAM: MR Thoracic Spine Without and With Intravenous Contrast CLINICAL HISTORY: Reason for exam: Stroke like symptoms. TECHNIQUE: Magnetic resonance images of the thoracic spine without and with intravenous contrast in multiple planes. CONTRAST: Patient received 6.5cc gadavist of IV contrast COMPARISON: No relevant prior studies available. FINDINGS: Vertebrae: Unremarkable. No acute fracture. Discs/spinal canal/neural foramina: No acute findings. There is mild disc degeneration at T7-8 with 1.5 mm left paracentral disc protrusion flattening the ventral thecal sac.. No spinal canal stenosis. Spinal cord: Unremarkable. Normal signal. No abnormal enhancement. Soft tissues: Unremarkable. IMPRESSION: No evidence of acute thoracic spine pathology. Electronically signed by: Marisela Carreno MD 12/07/23 01:34 AM
[2023-12-07 07:26] LABS: Basophils # (auto) 0.02 K/uL (0.00-0.20); Basophils % (auto) 0.4 %; Eosinophils # (auto) 0.13 K/uL (0.00-0.50); Eosinophils % (auto) 2.3 %; Hematocrit (blood only) 34.1 % (37.0-47.0); Hemoglobin 11.5 g/dl (12.0-16.0); Lymphocytes # (auto) 2.03 K/uL (1.20-3.40); Lymphocytes % (auto) 36.3 %; Mean Corpuscular Hemoglobin 28.4 pg (25.0-34.0); Mean Corpuscular Hgb Conc 33.7 g/dL (32.0-36.0); Mean Corpuscular Volume 84.2 fL (80.0-100.0); Mean Platelet Volume 10.3 fL (9.4-12.4); Monocytes # (auto) 0.49 K/uL (0.11-0.59); Monocytes % (auto) 8.8 %; Neutrophils # (auto) 2.92 K/uL (1.40-6.50); Neutrophils % (auto) 52.2 %; Platelet Count 239 K/uL (130-400); RDW Coefficient of Variation 12.7 % (11.5-14.5); RDW Standard Deviation 38.9 fL (36.4-46.3); Red Blood Count 4.05 M/uL (4.20-5.40); White Blood Count 5.59 K/ul (4.8-10.8)
[2023-12-07 07:43] LABS: BUN Creatinine Ratio 17.6 (10-20); Calcium 8.9 mg/dl (8.6-10.3); Creatinine Clr Calc Pharmacy 94.7 ml/min
[2023-12-07 07:58] LABS: Thyroid Stimulating Hormone 2.258 uIu/ml (0.300-4.500)
--- NOTE | 2023-12-07 08:48 | Electrocardiogram Report ---
Test Reason : Blood Pressure : */* mmHG Vent. Rate : 73 BPM Atrial Rate : 73 BPM P-R Int : 140 ms QRS Dur : 74 ms QT Int : 372 ms P-R-T Axes : 67 57 65 degrees QTcB Int : 409 ms Normal sinus rhythm Normal ECG When compared with ECG of 05-Dec-2023 18:33, No significant change was found Confirmed by Josué Yepez ([id number]) on 12/07/2023 8:47:51 AM Referred By: Maritza Jones Confirmed By: Josué Yepez
[2023-12-07] MEDS: GABAPENTIN 100 MG CAP PO SCH ×2 (11:07→20:33)
--- NOTE | 2023-12-07 11:31 | XRay Report ---
XR lumbar spine min 4V routine HISTORY: 48 years-old Female back pain acute low back pain without reported trauma COMPARISON: MRI 12/06/2023 TECHNIQUE: 5 views of the MR spine FINDINGS: Severe L4-L5 intervertebral disc space narrowing with grade 1 (5 mm) anterolisthesis redemonstrated a long with chronic L4 pars defects. Moderate L4-L5 facet arthrosis. Mild L5-S1 intervertebral disc spa ce narrowing and spondylotic spurring. IMPRESSION: 1. Chronic L4 pars defects with grade 1 anterolisthesis redemonstrated. 2. Severe L4-L5 intervertebral disc space narrowing with moderate spondylitic spurring and facet arth rosis redemonstrated. ACT 112: Negative or not required by law. The above report was generated using voice recognition software. It may contain grammatical, syntax o r spelling errors. Electronically signed by: Myles Cotton M.D. 12/07/2023 11:29 AM
--- NOTE | 2023-12-07 13:29 | Communication Note ---
Date of Service: December 07, 2023 MRI of the L-spine was reviewed and shows: IMPRESSION: 1. Advanced disc degeneration at L4-5 and moderate disc degeneration and L5-S1 with annular disc bulging causing mild subarticular recess stenosis at L4-5 and a mild right and moderate left subarticular recess stenosis at L5-S1 with impingement of the transiting left S1 nerve root. 2. There is no spinal canal stenosis. 3. There is moderate bilateral L4-5 neural foraminal stenosis with impingement of the L4 nerve or ganglia. 4. No evidence of acute fracture, infection, tumor or arachnoiditis. Findings can explain left lower extremity numbness. Continue to use gabapentin 100mg bid , that would help with her migraine baclofen 5 mg bid, for 5 days
--- NOTE | 2023-12-07 13:30 | Communication Note ---
Date of Service: December 07, 2023 Noted DARIO is positive. Consider EMG as an outpatient. Follow-up with neurology as an outpatient
--- NOTE | 2023-12-07 15:50 | Hospitalist Progress Note ---
Date of Service December 07, 2023 Assessment & Plan (1) Stroke-like symptoms: Plan: 48-year-old female with past medical history significant for rheumatoid arthritis of multiple sites without rheumatoid factor, recurrent iritis of right eye, migraine variant, history genital warts, history of recurrent diverticulitis for which patient is scheduled for surgery end of this month and she is taking MiraLAX daily in preparation for the surgery comes because of s trokelike symptoms. Patient says since November 23 she is feeling pressure in the head. Since last couple of weeks she is she feeling foggy in her brain. Since last week she is feeling numbness and a tinglining in the both lower extremities more in the left lower extremity and also weakness in the left thumb. Because of ongoing symptoms she came to the ER today. She was also recently diagnosed with lumbar disc disease and is prescribed gabapentin as needed. Patient denies any blurred visions or double vision. No earache. No runny nose or sore throat. No cough. No fevers. Whenever she feels fogginess in her brain she has some difficulty swallowing which last about half hour and as fogginess resolves she can swallow okay. No nausea. No abdominal pain. Normal bowel and bladder movements. Denies any bloody stools. No rash. Initially today she was not able to ambulate much but in the ER currently she was able to ambulate okay. Hemodynamics are okay. Lumbar disc disease with radiculopathy Strokelike symptoms DD: Possible Complicated Migraine H/O Migraine Reports pressure in the head since November 23. Fogginess of brain since last 2 weeks. Numbness and weakness of lower extremity more in right leg and weakness of left thumb since last 1 week --MRI Brain:No evidence of acute intracranial pathology. --Head CTA:Negative CT angiogram of the head. --Neck CTA:Negative CTA neck. --LDL: 92 --A1C:5.8 --ECHO: Small right to left interatrial shunt with injection of agitated saline contrast consistent with presence of patent herndon ovale. EF 55 to 60%. Left ventricular wall motion is normal. No significant valvular pathology. --MRI Lumbar Spine: Advanced disc degeneration at L4-5 and moderate disc degeneration and L5-S1 with annular disc bulging causing mild subarticular recess stenosis at L4-5 and a mild right and moderate left subarticular recess stenosis at L5-S1 with impingement of the transiting left S1 nerve root.. There is no spinal canal stenosis.. There is moderate bilateral L4-5 neural foraminal stenosis with impingement of the L4 nerve or ganglia.. No evidence of acute fracture, infection, tumor or arachnoiditis. -- Thoracic spine MRI:No evidence of acute thoracic spine pathology. -- Cervical spine MRI:Negative MRI of the cervical spine. -- Normal TSH, B12 -- Elevated DARIO on prior studies PT/OT/Speech evaluation Started on gabapentin 100 mg twice daily. Consulted orthopedics Needs outpatient EMG per neurology Consider adding magnesium, B2 supplements on discharge for migraine prophylaxis Dizziness Normal orthostatics Received gentle IV fluids Meclizine as needed Advised follow-up with ENT as outpatient Hypokalemia Replete and monitor Degenerative lumbar disease On gabapentin as needed Off note: Patient has not started her gabapentin yet H/O Recurrent Diverticulitis Chronic constipation Scheduled for elective surgery on Miralax DVT prophylaxis SCDs for now Code Status Full code. Disposition Expect to discharge home as able Admission and Anticipated Discharge Date Admission Date: December 06, 2023 Subjective Patient is seen and examined at bedside And has headache associated with dizziness States right leg numbness and tingling better when compared to yesterday Still has left leg numbness/tingling and left thumb tingling and numbness Family at bedside Discussed with neurology today Review of Systems Review of Systems: All systems reviewed & are unremarkable except as noted in Subjective Physical Exam Physical Exam: Physical Exam: Vitals signs as noted above General Appearance:Moderately built and nourished, no apparent distress Head: normocephalic, Atraumatic Eyes: normal inspection, EOMI Neck: supple, Trachea midline Respiratory/Chest: Normal breath sounds, CTA, No accessory muscle use Cardiovascular: S1, S2, No murmur Abdomen/GI:Soft, Non tender, Bowel sounds present Extremities/Musculoskeletal:normal inspection, no edema Neurologic/Psych:AAOX3, grossly no focal neurological deficits Skin: normal color, warm Results & Data Results & Data Vital Signs (Past 12 Hours) Vital Signs Temp Pulse Resp BP Pulse Ox O2 Del Method 12/07/23 15:01 36.6 C 74 17 126/79 99 Room Air 12/07/23 11:22 36.6 C 78 18 110/68 98 Room Air 12/07/23 07:39 36.6 C 73 18 107/66 98 Room Air Laboratory Results Short CBC 12/07/23 Range/Units 05:32 WBC 5.59 (4.8-10.8) K/ul Hgb 11.5 L (12.0-16.0) g/dl Hct 34.1 L (37.0-47.0) % Plt Count 239 (130-400) K/uL BMP 12/07/23 05:32 Sodium 141 Potassium 4.0 Chloride 109 H Carbon Dioxide 25 BUN 12 Creatinine 0.68 Glucose 81 Calcium 8.9
[2023-12-07] MEDS: MECLIZINE 12.5 MG TAB PO PRN (20:33)
[2023-12-08 05:51] LABS: Basophils # (auto) 0.05 K/uL (0.00-0.20); Basophils % (auto) 0.8 %; Eosinophils # (auto) 0.13 K/uL (0.00-0.50); Hematocrit (blood only) 35.5 % (37.0-47.0); Hemoglobin 11.8 g/dl (12.0-16.0); Immature Granulocytes # (auto) 0.01 K/uL (0.01-0.20); Immature Granulocytes % (auto) 0.2 %; Lymphocytes # (auto) 2.34 K/uL (1.20-3.40); Lymphocytes % (auto) 35.2 %; Mean Corpuscular Hemoglobin 28.4 pg (25.0-34.0); Mean Corpuscular Hgb Conc 33.2 g/dL (32.0-36.0); Mean Corpuscular Volume 85.3 fL (80.0-100.0); Mean Platelet Volume 9.6 fL (9.4-12.4); Monocytes # (auto) 0.43 K/uL (0.11-0.59); Monocytes % (auto) 6.5 %; Neutrophils # (auto) 3.68 K/uL (1.40-6.50); Neutrophils % (auto) 55.3 %; Platelet Count 243 K/uL (130-400); RDW Coefficient of Variation 12.5 % (11.5-14.5); RDW Standard Deviation 38.4 fL (36.4-46.3); Red Blood Count 4.16 M/uL (4.20-5.40); White Blood Count 6.64 K/ul (4.8-10.8)
[2023-12-08 06:08] LABS: BUN Creatinine Ratio 18.8 (10-20); Calcium 9.2 mg/dl (8.6-10.3); Creatinine Clr Calc Pharmacy 93.3 ml/min
--- NOTE | 2023-12-08 09:18 | Orthopedic Consultation ---
Date of Consultation December 08, 2023 Assessment & Plan (1) Spinal stenosis of lumbar region with neurogenic claudication: I have reviewed the findings on the MRIs and films with the patient. While she does have significant spinal stenosis at L4-5 and L5-S1 this would not explain the weakness in the proximal muscle groups in the hips nor the numbness and tingling in the arms and hands. In terms of the spinal stenosis that is present would be happy to follow her as an outpatient if she is local and review full treatment plans and maximize conservative measures before considering surgery. Dr. Abebe and I have reviewed the films there is no indication for acute surgical intervention. The patient can call our office at [phone] for outpatient visit. History of Present Illness Attending Physician: Lj Breaux MD History of Present Illness Patient is a pleasant 48-year-old female who presented to the emergency room with numbness and tingling in her arms and legs and weakness. She is having difficult time standing and walking. Per the patient she has a longstanding history of difficulties with her lower back. This episode occurred acutely however. Initially thought she may have had a stroke given the presentation. When she was admitted she seemed to regain a lot of the weakness that she had but still feels tingling in her arms and legs. She denies any recent infections fevers or chills she has had no acute injuries. Allergies Allergy/AdvReac Type Severity Reaction Status Date / Time aloe Allergy Mild RASH Verified 11/26/23 15:57 Home Medications Medication Instructions Recorded Confirmed Type escitalopram oxalate 10 mg tablet 10 mg PO DAILY 12/06/23 12/06/23 History gabapentin 100 mg capsule 100 mg PO TID PRN Pain 12/06/23 12/06/23 History polyethylene glycol 3350 17 gram 17 g PO DAILY 12/06/23 12/06/23 History oral powder packet (Miralax) Patient History Medical History (Updated 12/08/23 @ 09:17 by Juvencio Wright PA-C) Diverticulitis Osteoarthritis Gout Anxiety Migraine Reactive airway disease Surgical History H/O right knee surgery BENIGN TUMOR REMOVED History of section X2 History of dilatation and curettage History of tooth extraction WISDOM TEETH Family History Brother Family history of diabetes mellitus Grandmother Family history of diabetes mellitus MATERNAL AND PATERNAL Social History Smoking Status: Current some day smoker Tobacco Type: E-cigarettes / Vaping Second Hand Exposure: Yes; Do You Dip or Chew Tobacco: No; Tobacco Cessation Education Requested by Patient: No Hx Alcohol Use: Yes Alcohol type: hard liquor Hx Substance Use: No Preferred Language: Somali Communication Ability: Effective Kindergarten Aide Required: No Beliefs That Will Affect Care: None Current Living Situation: Spouse Current Living Situation Comment: Lives at home with and 2 children Other Information That Helps Us Care for You: No Feels Safe at Home: Yes Safety Concerns: Feels Safe At This Time Assistive Devices: None Physical Exam Physical Exam: On exam she is alert and oriented she answers questions appropriately. She stands and moves easily about the exam room. She is in no apparent distress. Her lower extremity motor exam reveals no focal atrophy or strength 5 out of 5 to detailed muscle testing with the exception of some mild weakness in the AB and abductors in the hips. She has full strength in her anterior tibialis and gastrocsoleus complex. She has full range of motion of the hips and knees is nontender with range of motion. Her abdomen soft and nontender calves are supple and nontender. Her gait is stable. Results & Data Vital Signs (Past 12 Hours) Vital Signs Temp Pulse Pulse Resp BP BP Pulse Ox 12/08/23 07:08 36.6 C 70 16 122/78 95 12/08/23 02:44 36.7 C 73 14 105/69 98 12/07/23 22:40 36.5 C 65 16 96/59 L 98 12/07/23 22:10 65 O2 Del Method 12/08/23 07:08 Room Air 12/08/23 02:44 Room Air 12/07/23 22:40 Room Air 12/07/23 22:10 Diagnostic Findings MRIs of the cervical thoracic and lumbar spine reviewed. The cervical and thoracic MRIs were benign. In the lumbar spine she had a grade 1 spondylolisthesis at L4-5 with Modic changes in the endplates. There is significant lateral recess stenosis secondary to facet arthropathy. L5-S1 had broad-based disc protrusion also producing some impingement at this level. Plain films of the lumbar spine were also reviewed. This reveals a grade 1 spondylolisthesis at L5-S1 with near complete to space collapse at L5-S1. There is to space narrowing at L5-S1 as well. Lordosis was otherwise well-maintained. No fractures were noted.
--- NOTE | 2023-12-08 09:31 | Hospitalist Progress Note ---
Date of Service December 08, 2023 Assessment & Plan (1) Stroke-like symptoms: Plan: 48-year-old female with past medical history significant for rheumatoid arthritis of multiple sites without rheumatoid factor, recurrent iritis of right eye, migraine variant, history genital warts, history of recurrent diverticulitis for which patient is scheduled for surgery end of this month and she is taking MiraLAX daily in preparation for the surgery comes because of s trokelike symptoms. Patient says since November 23 she is feeling pressure in the head. Since last couple of weeks she is she feeling foggy in her brain. Since last week she is feeling numbness and a tinglining in the both lower extremities more in the left lower extremity and also weakness in the left thumb. Because of ongoing symptoms she came to the ER today. She was also recently diagnosed with lumbar disc disease and is prescribed gabapentin as needed. Patient denies any blurred visions or double vision. No earache. No runny nose or sore throat. No cough. No fevers. Whenever she feels fogginess in her brain she has some difficulty swallowing which last about half hour and as fogginess resolves she can swallow okay. No nausea. No abdominal pain. Normal bowel and bladder movements. Denies any bloody stools. No rash. Initially today she was not able to ambulate much but in the ER currently she was able to ambulate okay. Hemodynamics are okay. Lumbar disc disease/spinal stenosis with neurogenic claudication Strokelike symptoms DD: Possible Complicated Migraine H/O Migraine Reports pressure in the head since November 23. Fogginess of brain since last 2 weeks. Numbness and weakness of lower extremity more in right leg and weakness of left thumb since last 1 week --MRI Brain:No evidence of acute intracranial pathology. --Head CTA:Negative CT angiogram of the head. --Neck CTA:Negative CTA neck. --LDL: 92 --A1C:5.8 --ECHO: Small right to left interatrial shunt with injection of agitated saline contrast consistent with presence of patent herndon ovale. EF 55 to 60%. Left ventricular wall motion is normal. No significant valvular pathology. --MRI Lumbar Spine: Advanced disc degeneration at L4-5 and moderate disc degeneration and L5-S1 with annular disc bulging causing mild subarticular recess stenosis at L4-5 and a mild right and moderate left subarticular recess stenosis at L5-S1 with impingement of the transiting left S1 nerve root.. There is no spinal canal stenosis.. There is moderate bilateral L4-5 neural foraminal stenosis with impingement of the L4 nerve or ganglia.. No evidence of acute fracture, infection, tumor or arachnoiditis. -- Thoracic spine MRI:No evidence of acute thoracic spine pathology. -- Cervical spine MRI:Negative MRI of the cervical spine. -- Normal TSH, B12 -- Elevated DARIO on prior studies PT/OT/Speech evaluation Continue gabapentin 100 mg twice daily. Appreciate orthopedics input--needs follow-up as outpatient Needs outpatient EMG and follow-up with neurology as outpatient Consider adding magnesium, B2 supplements on discharge for migraine prophylaxis Continue current management Dizziness Normal orthostatics Received gentle IV fluids Meclizine as needed Advised follow-up with ENT as outpatient Hypokalemia Replete and monitor Degenerative lumbar disease On gabapentin as needed Off note: Patient has not started her gabapentin yet H/O Recurrent Diverticulitis Chronic constipation Scheduled for elective surgery on Miralax DVT prophylaxis SCDs for now Encouraged to ambulate Code Status Full code. Disposition Expect to discharge home as able Admission and Anticipated Discharge Date Admission Date: December 06, 2023 Subjective Patient is seen and examined at bedside States having persistent upper and lower extremity numbness and tingling Headache better Still has dizziness Discussed with neurology today Denies any chest pain, dyspnea, abdominal pain Reports having panic attack and undergoing through stress due to upcoming surgery Review of Systems Review of Systems: All systems reviewed & are unremarkable except as noted in Subjective Physical Exam Physical Exam: Physical Exam: Vitals signs as noted above General Appearance:Moderately built and nourished, no apparent distress Head: normocephalic, Atraumatic Eyes: normal inspection, EOMI Neck: supple, Trachea midline Respiratory/Chest: Normal breath sounds, CTA, No accessory muscle use Cardiovascular: S1, S2, No murmur Abdomen/GI:Soft, Non tender, Bowel sounds present Extremities/Musculoskeletal:normal inspection, no edema Neurologic/Psych:AAOX3, grossly no focal neurological deficits, normal LE reflexes Skin: normal color, warm Results & Data Results & Data Vital Signs (Past 12 Hours) Vital Signs Temp Pulse Pulse Resp BP BP Pulse Ox 12/08/23 07:08 36.6 C 70 16 122/78 95 12/08/23 02:44 36.7 C 73 14 105/69 98 10/17/24 22:40 36.5 C 65 16 96/59 L 98 12/07/23 22:10 65 O2 Del Method 12/08/23 07:08 Room Air 12/08/23 02:44 Room Air 12/07/23 22:40 Room Air 12/07/23 22:10 Laboratory Results Short CBC 12/08/23 Range/Units 05:19 WBC 6.64 (4.8-10.8) K/ul Hgb 11.8 L (12.0-16.0) g/dl Hct 35.5 L (37.0-47.0) % Plt Count 243 (130-400) K/uL BMP 12/08/23 05:19 Sodium 140 Potassium 4.0 Chloride 109 H Carbon Dioxide 25 BUN 13 Creatinine 0.69 Glucose 89 Calcium 9.2
--- NOTE | 2023-12-08 10:34 | Electrocardiogram Report ---
Test Reason : Blood Pressure : */* mmHG Vent. Rate : 79 BPM Atrial Rate : 79 BPM P-R Int : 134 ms QRS Dur : 74 ms QT Int : 354 ms P-R-T Axes : 66 62 55 degrees QTcB Int : 405 ms Normal sinus rhythm Normal ECG When compared with ECG of 07-Dec-2023 06:49, No significant change was found Confirmed by Josué Yepez ([id number]) on 12/08/2023 10:33:53 AM Referred By: Maritza Jones Confirmed By: Josué Yepez
--- NOTE | 2023-12-08 17:08 | Neurology Progress Note ---
Date of Service December 08, 2023 Assessment & Plan (1) Numbness and tingling: Symptoms can be attributed to lumbar radiculopathy, improved with gabapentin. Plan Continue gabapentin for symptomatic management. EMG as an outpatient. Check SPEP UPEP. Follow-up with neurology as an outpatient. The patient was was educated to come back to the emergency room if symptoms get worse Subjective Telehealth Information I performed this visit using a real-time telehealth connection between my location and the patients location ([facility]). After connecting through interactive tele-video, patient was identified by name and date of and/or wristband check.Patient (or authorized healthcare accounts payable representative) was informed that this was a telemedicine visit and it was being conducted confidentially over secure lines. My office door was closed and no one else was present in the room with me.Patient (or authorized healthcare accounts payable representative) provided consent to proceed with the visit, expressed an understanding of privacy and security of the telemedicine visit, and gave permission to have a hospital accounts payable representative in the room in order to assist with the visit and to conduct portions of the visit, as needed. I informed the patient (or authorized healthcare accounts payable representative) that I reviewed their record and presented the opportunity for them to ask any questions regarding the visit today. The patient agreed to participate. The patient was evaluated yesterday for patchy numbness of her hands and feet affecting mainly the left side that was intermittent. MRI of the spine was obtained and above the brain and shows no acute abnormalities or enhancement apart from some foraminal stenosis of the lumbar spine. Today she reports that she still have the numbness that comes and goes goes in both feet and hands, more so on the left side she denies any weakness or gait instability Review of Systems Negative except for the points mentioned above Physical Exam General Constitutional: Appearance normally developed Head and face: normocephalic and atraumatic Eyes: no ptosis, no anisocoria, and no dysconjugate gaze Respiratory: normal effort Cardiovascular: regular rhythm and regular rate Abdomen: non distended Skin: no rashes, lesions, or ulcers noted Psychiatric: normal judgement and insight, normal mood, and normal affect NEUROLOGIC EXAMINATION: Mental Status:alert, oriented to time, place, person, normal recent memory, normal remote memory, normal attention span, normal concentration, normal language and normal fund of knowledge Cranial Nerves: CN 2 - no visual defect on confrontation and pupils round, equal, reactive to light CN 3, 4, 6 - extra-ocular movements intact and no nystagmus CN 5 - facial sensation intact CN 7 - no facial asymmetry CN 8 - intact hearing CN 9, 10 - palate symmetric, normal gag CN 11 - good shoulder shrug CN 12 - tongue midline MOTOR: Strength was at least antigravity throughout, Pronator drift was absent and There were no abnormal movements SENSATION: intact and symmetric to pinprick, light touch, vibration and joint position GAIT: stable, no ataxia and can perform tandem walking COORDINATION: no ataxia with finger to nose testing and heel to thayer testing REFLEXES: cannot assess over telemedicine, reflexes were checked by attending physicians and described to be within normal and both ankle jerks and knees. Results & Data Vital Signs (Past 12 Hours) Vital Signs Temp Pulse Pulse Resp BP Pulse Ox O2 Del Method 12/08/23 14:45 36.5 C 91 H 18 119/77 97 Room Air 12/08/23 12:00 36.7 C 73 16 124/79 99 Room Air 12/08/23 07:08 36.6 C 70 16 122/78 95 Room Air 12/08/23 05:15 66 Laboratory Results Abnormal lab results 12/08/23 Range/Units 05:19 RBC 4.16 L (4.20-5.40) M/uL Hgb 11.8 L (12.0-16.0) g/dl Hct 35.5 L (37.0-47.0) % Chloride 109 H (98-107) mmol/L Diagnostic Findings MRI of the spine and brain were reviewed Medications Administered Home Medications Medication Instructions Recorded Confirmed Last Taken escitalopram oxalate 10 mg tablet 10 mg PO DAILY 12/06/23 12/06/23 Unknown gabapentin 100 mg capsule 100 mg PO TID PRN Pain 12/06/23 12/06/23 Unknown polyethylene glycol 3350 17 gram 17 g PO DAILY 12/06/23 12/06/23 Unknown oral powder packet (Miralax) Active Medications Generic Name Dose Route Start Last Admin Trade Name Freq PRN Reason Stop Dose Admin Acetaminophen 650 mg 12/06/23 03:05 12/06/23 09:50 Acetaminophen 325 Mg Tab PO 01/05/24 03:04 650 mg Q4H PRN Administration Pain or Fever Escitalopram Oxalate 10 mg 12/06/23 09:00 12/08/23 09:54 Escitalopram Oxalate 10 Mg Tab PO 01/05/24 08:59 10 mg DAILY BART Administration Gabapentin 100 mg 12/07/23 21:00 12/08/23 09:55 Gabapentin 100 Mg Cap PO 01/06/24 20:59 100 mg BID BART Administration Lorazepam 0.5 mg 12/06/23 16:34 12/08/23 01:29 Lorazepam 0.5 Mg Tab PO 01/05/24 16:33 0.5 mg BID PRN Administration Anxiety Meclizine HCl 12.5 mg 12/07/23 10:50 12/08/23 12:35 Meclizine 12.5 Mg Tab PO 01/06/24 10:49 12.5 mg TID PRN Administration Dizziness Polyethylene Glycol 17 gm 12/06/23 09:00 12/08/23 09:55 Polyethylene (Miralax) 17 Gm Pack PO 01/05/24 08:59 17 gm DAILY BART Administration
[2023-12-09 03:07] VITALS: O2SAT 98
[2023-12-09 08:41] VITALS: RESP 17; TEMP 98.6
--- NOTE | 2023-12-09 10:00 | Hospitalist Progress Note ---
Date of Service December 09, 2023 Assessment & Plan (1) Stroke-like symptoms: Plan: 48-year-old female with past medical history significant for rheumatoid arthritis of multiple sites without rheumatoid factor, recurrent iritis of right eye, migraine variant, history genital warts, history of recurrent diverticulitis for which patient is scheduled for surgery end of this month and she is taking MiraLAX daily in preparation for the surgery comes because of s trokelike symptoms. Patient says since November 23 she is feeling pressure in the head. Since last couple of weeks she is she feeling foggy in her brain. Since last week she is feeling numbness and a tinglining in the both lower extremities more in the left lower extremity and also weakness in the left thumb. Because of ongoing symptoms she came to the ER today. She was also recently diagnosed with lumbar disc disease and is prescribed gabapentin as needed. Patient denies any blurred visions or double vision. No earache. No runny nose or sore throat. No cough. No fevers. Whenever she feels fogginess in her brain she has some difficulty swallowing which last about half hour and as fogginess resolves she can swallow okay. No nausea. No abdominal pain. Normal bowel and bladder movements. Denies any bloody stools. No rash. Initially today she was not able to ambulate much but in the ER currently she was able to ambulate okay. Hemodynamics are okay. Lumbar disc disease/spinal stenosis with neurogenic claudication Strokelike symptoms DD: Possible Complicated Migraine H/O Migraine Reports pressure in the head since November 23. Fogginess of brain since last 2 weeks. Numbness and weakness of lower extremity more in right leg and weakness of left thumb since last 1 week --MRI Brain:No evidence of acute intracranial pathology. --Head CTA:Negative CT angiogram of the head. --Neck CTA:Negative CTA neck. --LDL: 92 --A1C:5.8 --ECHO: Small right to left interatrial shunt with injection of agitated saline contrast consistent with presence of patent [place]ndon ov[place]. EF 55 to 60%. Left ventricular wall motion is normal. No significant valvular pathology. --MRI Lumbar Spine: Advanced disc degeneration at L4-5 and moderate disc degeneration and L5-S1 with annular disc bulging causing mild subarticular recess stenosis at L4-5 and a mild right and moderate left subarticular recess stenosis at L5-S1 with impingement of the transiting left S1 nerve root.. There is no spinal canal stenosis.. There is moderate bilateral L4-5 neural foraminal stenosis with impingement of the L4 nerve or ganglia.. No evidence of acute fracture, infection, tumor or arachnoiditis. -- Thoracic spine MRI:No evidence of acute thoracic spine pathology. -- Cervical spine MRI:Negative MRI of the cervical spine. -- Normal TSH, B12 -- Elevated DARIO on prior studies --SPEP/UPEP pending PT/OT/Speech evaluation Continue gabapentin 100 mg twice daily. Appreciate orthopedics input--needs follow-up as outpatient Needs outpatient EMG and follow-up with neurology as outpatient Add magnesium, B2 supplements on discharge for migraine prophylaxis Also advised to follow-up with rheumatology as outpatient given elevated DARIO in the past Advised to reach immediate medical attention if symptoms worsen Patient understands and agrees with the plan Dizziness Normal orthostatics Received gentle IV fluids Meclizine as needed Advised follow-up with ENT as outpatient Hypokalemia Replete and monitor Degenerative lumbar disease On gabapentin as needed Off note: Patient has not started her gabapentin yet H/O Recurrent Diverticulitis Chronic constipation Scheduled for elective surgery on Miralax DVT prophylaxis SCDs for now Encouraged to ambulate Code Status Full code. Disposition Home Admission and Anticipated Discharge Date Admission Date: December 06, 2023 Subjective Patient is seen and examined at bedside Right upper extremity numbness, tingling resolved Still has lower extremity and left upper extremity symptoms Headache resolved Denies any focal weakness Also denies any chest pain, nausea, vomiting, abdominal pain, dyspnea Family at bedside No recurrence of panic attack Prefers to be discharged home today Review of Systems Review of Systems: All systems reviewed & are unremarkable except as noted in Subjective Physical Exam Physical Exam: Physical Exam: Vitals signs as noted above General Appearance:Moderately built and nourished, no apparent distress Head: normocephalic, Atraumatic Eyes: normal inspection, EOMI Neck: supple, Trachea midline Respiratory/Chest: Normal breath sounds, CTA, No accessory muscle use Cardiovascular: S1, S2, No murmur Abdomen/GI:Soft, Non tender, Bowel sounds present Extremities/Musculoskeletal:normal inspection, no edema Neurologic/Psych:AAOX3, strength equal bilaterally, normal LE reflexes, grossly no focal deficits Skin: normal color, warm Results & Data Results & Data Vital Signs (Past 12 Hours) Vital Signs Temp Pulse Resp BP Pulse Ox O2 Del Method O2 Del Method 12/09/23 08:00 37.0 C 76 17 114/80 98 Room Air 12/09/23 03:06 36.7 C 72 16 96/59 L 98 Room Air 12/09/23 03:00 Room Air 12/08/23 23:02 36.9 C 90 16 95/57 L 97 Room Air
[2023-12-09] MEDS ORDERED: STROKE PATIENT DISCHARGE STA (10:46)
--- NOTE | 2023-12-09 13:08 | Discharge Summary ---
Date of Service December 09, 2023 Admission HPI Per Admitting Provider 48-year-old female with past medical history significant for rheumatoid arthritis of multiple sites without rheumatoid factor, recurrent iritis of right eye, migraine variant, history genital warts, history of recurrent diverticulitis for which patient is scheduled for surgery end of this month and she is taking MiraLAX daily in preparation for the surgery comes because of strokelike symptoms. Patient says since November 23 she is feeling pressure in the head. Since last couple of weeks she is she feeling foggy in her brain. Since last week she is feeling numbness and a tingliness in the both lower extremities more in the left lower extremity and also weakness in the left thumb. Because of ongoing symptoms she came to the ER today. She was also recently diagnosed with lumbar disc disease and is prescribed gabapentin as needed. Patient denies any blurred visions or double vision. No earache. No runny nose or sore throat. No cough. No fevers. Whenever she feels fogginess in her brain she has some difficulty swallowing which last about half hour and as fogginess resolves she can swallow okay. No nausea. No abdominal pain. Normal bowel and bladder movements. Denies any bloody stools. No rash. Initially today she was not able to ambulate much but in the ER currently she was able to ambulate okay. Hemodynamics are okay. Past medical history. As mentioned above Past surgical history. Colonoscopy. Benign tumor removed from knee. Social history. . Quit smoking 2021. Smoked 0.3 pack a day for 20 years. Alcohol occasional. Family history. Maternal aunt had breast cancer. Father has epilepsy. Mother has sleep apnea. Brother has diabetes. Maternal grandfather had heart disorder. Daughter has migraines. Brother has lung cancer. Admission Exam Per Admitting Provider General- Not in distress Head- atraumatic Eyes- PERRL, EOMI. ENT- oropharynx clear Neck- supple, no JVD. Lungs- clear to auscultation no wheezing or crackles Heart- regular rate and rhythm; no murmur, no gallop. Abdomen- normal bowel sounds, soft, nontender, no distension. Extremities- no pretibial edema, no erythema seen Neuro- alert, oriented PERRL, EOMI; no facial palsy; no dysarthria; motor 5/5 bilaterally except 2/5 in left lower extremity; no pronator drift, co ordination of movements normal, sensations intact. Principal Diagnosis Lumbar spinal stenosis with neurogenic claudication Migraine Strokelike symptoms Dizziness Discharge Data Allergies Allergy/AdvReac Type Severity Reaction Status Date / Time aloe Allergy Mild RASH Verified 11/26/23 15:57 Consultations 12/05/23 21:44 ED Decision to Admit Stat 12/06/23 08:00 Consult Neurology Routine 12/07/23 07:37 Consult Orthopedic Surgery Routine Procedures Performed Laboratory Results WBC 6.64 K/ul (4.8-10.8) 12/08/23 05:19 RBC 4.16 M/uL (4.20-5.40) L 12/08/23 05:19 Hgb 11.8 g/dl (12.0-16.0) L 12/08/23 05:19 Hct 35.5 % (37.0-47.0) L 12/08/23 05:19 MCV 85.3 fL (80.0-100.0) 12/08/23 05:19 MCH 28.4 pg (25.0-34.0) 12/08/23 05:19 MCHC 33.2 g/dL (32.0-36.0) 12/08/23 05:19 RDW Std Deviation 38.4 fL (36.4-46.3) 12/08/23 05:19 RDW Coeff of Daniela 12.5 % (11.5-14.5) 12/08/23 05:19 Plt Count 243 K/uL (130-400) 12/08/23 05:19 MPV 9.6 fL (9.4-12.4) 12/08/23 05:19 Immature Gran % (Auto) 0.2 % 12/08/23 05:19 Neut % (Auto) 55.3 % 12/08/23 05:19 Lymph % (Auto) 35.2 % 12/08/23 05:19 Peach % (Auto) 6.5 % 12/08/23 05:19 Eos % (Auto) 2.0 % 12/08/23 05:19 Baso % (Auto) 0.8 % 12/08/23 05:19 Neut # (Auto) 3.68 K/uL (1.40-6.50) 12/08/23 05:19 Lymph # (Auto) 2.34 K/uL (1.20-3.40) 12/08/23 05:19 Peach # (Auto) 0.43 K/uL (0.11-0.59) 12/08/23 05:19 Eos # (Auto) 0.13 K/uL (0.00-0.50) 12/08/23 05:19 Baso # (Auto) 0.05 K/uL (0.00-0.20) 12/08/23 05:19 Immature Gran # (Auto) 0.01 K/uL (0.01-0.20) 12/08/23 05:19 PT 10.3 Seconds (9.0-12.0) 12/05/23 16:24 INR 0.9 (0.9-1.1) 12/05/23 16:24 APTT 34 Seconds (21-31) H 12/05/23 16:24 PTT Ratio 1.3 12/05/23 16:24 Sodium 140 mmol/L (136-145) 12/08/23 05:19 Potassium 4.0 mmol/L (3.5-5.1) 12/08/23 05:19 Chloride 109 mmol/L (98-107) H 12/08/23 05:19 Carbon Dioxide 25 mmol/L (21-32) 12/08/23 05:19 Anion Gap 6 (3-11) 12/08/23 05:19 BUN 13 mg/dl (6-23) 12/08/23 05:19 Creatinine 0.69 mg/dl (0.6-1.2) 12/08/23 05:19 Est Cr Clr Drug Dosing 93.3 ml/min 12/08/23 05:19 eGFR 106.99 12/08/23 05:19 BUN/Creatinine Ratio 18.8 (10-20) 12/08/23 05:19 Glucose 89 mg/dl (70-99(Fasting)) 12/08/23 05:19 Estimat Average Glucose 120 mg/dl 12/06/23 06:53 Hemoglobin A1c 5.8 % (4.5-5.6) H 12/06/23 06:53 Calcium 9.2 mg/dl (8.6-10.3) 12/08/23 05:19 Magnesium 2.1 mg/dl (1.7-2.4) 12/05/23 16:20 Total Bilirubin 0.4 mg/dl (0.2-1.0) 12/05/23 16:20 AST 16 U/L (13-39) 12/05/23 16:20 ALT 16 U/L (7-52) 12/05/23 16:20 Alkaline Phosphatase 57 U/L (34-104) 12/05/23 16:20 Total Protein 8.1 gm/dl (6.0-8.3) 12/05/23 16:20 Albumin 4.8 gm/dl (3.4-5.0) 12/05/23 16:20 Globulin 3.3 gm/dl (2.5-4.0) 12/05/23 16:20 Albumin/Globulin Ratio 1.5 (0.9-2) 12/05/23 16:20 Triglycerides 110 mg/dl (0-150) 12/06/23 06:53 Cholesterol 176 mg/dl (0-200) 12/06/23 06:53 LDL Cholesterol, Calc 92 mg/dl 12/06/23 06:53 VLDL Cholesterol, Calc 22 mg/dl (0-30) 12/06/23 06:53 HDL Cholesterol 62 mg/dl 12/06/23 06:53 Cholesterol/HDL Ratio 2.8 (0-5) 12/06/23 06:53 Vitamin B12 299 pg/ml (180-914) 12/07/23 05:32 TSH 2.258 uIu/ml (0.300-4.500) 12/07/23 05:32 Urine Color Yellow 12/05/23 Unknown Urine Appearance Cloudy (Clear) A 12/05/23 Unknown Urine pH 8.5 (4.5-7.5) H 12/05/23 Unknown Ur Specific [place] 1.011 (1.000-1.030) 12/05/23 Unknown Urine Protein Negative (Negative) 12/05/23 Unknown Urine Glucose (UA) Negative (Negative) 12/05/23 Unknown Urine Ketones Negative (Negative) 12/05/23 Unknown Urine Blood Negative (Negative) 12/05/23 Unknown Urine Nitrite Negative (Negative) 12/05/23 Unknown Urine Bilirubin Negative (Negative) 12/05/23 Unknown Urine Urobilinogen Negative (Negative) 12/05/23 Unknown Ur Leukocyte Esterase 1+ (Negative) H 12/05/23 Unknown Urine WBC (Auto) 6-10 /hpf (0-5) H 12/05/23 Unknown Urine RBC (Auto) 0-2 /hpf (0-2) 12/05/23 Unknown U Hyaline Cast (Auto) 0-2 /lpf (0-2) 12/05/23 Unknown U Epithel Cells (Auto) 0-2 /hpf (0-2) 12/05/23 Unknown Urine Bacteria (Auto) None Seen (None Seen) 12/05/23 Unknown Impressions Chest X-Ray 12/05/23 17:51 SINGLE VIEW CHEST CLINICAL HISTORY: Strokelike symptoms. FINDINGS: An AP, portable, upright chest radiograph is compared to study dated 08/16/2023. The cardiomediastinal silhouette is unremarkable. Calcified granulomas are seen at the left lung base. The lungs and pleural spaces are otherwise clear. No pneumothorax is seen. The bony thorax is grossly intact. IMPRESSION: No active disease in the chest. ACT 112: Negative or not required by law. Electronically signed by: Lowell Keen M.D. 12/05/2023 7:[address] 12/05/23 17:51 Exam(s): CT HEAD Without Contrast EXAM: CT Head Without Intravenous Contrast CLINICAL HISTORY: Reason for exam: Neuro deficit, acute, stroke suspected. TECHNIQUE: Axial computed tomography images of the head/brain without intravenous contrast. CTDI is 37.87 mGy and DLP is 546.36 mGy-cm. Automated exposure control was utilized for the study. A dose lowering technique was utilized adhering to the principles of ALARA. COMPARISON: August 16, 2023 FINDINGS: Brain: Unremarkable. No hemorrhage. No significant white matter disease. No edema. Ventricles: Unremarkable. No ventriculomegaly. Bones/joints: Unremarkable. No acute fracture. Soft tissues: Unremarkable. Sinuses: Unremarkable as visualized. No acute sinusitis. Mastoid air cells: Unremarkable as visualized. No mastoid effusion. IMPRESSION: No acute intracranial abnormality Electronically signed by: Octavio Fraga MD 12/05/23 20:44 PM Brain MRI 12/06/23 03:05 Exam(s): MRI HEAD W/WO Contrast IV Amt: 6.5cc gadavist EXAM: MR Head Without and With Intravenous Contrast CLINICAL HISTORY: Reason for exam: sttroke like symptoms. TECHNIQUE: Magnetic resonance images of the head/brain without and with intravenous contrast in multiple planes. CONTRAST: Patient received 6.5cc gadavist of IV contrast COMPARISON: Prior head CT from December 05, 2023. FINDINGS: Brain: Minimal nonspecific white matter changes. No mass. No hemorrhage. No acute infarct. The flow voids at the base the brain are intact. Tiny left choroidal fissure cyst. There is a tiny left cerebellar developmental venous anomaly. The dural venous sinuses are patent. Ventricles: Unremarkable. No ventriculomegaly. Bones/joints: Unremarkable. No acute fracture. Sinuses: Unremarkable as visualized. No acute sinusitis. Mastoid air cells: Unremarkable as visualized. No mastoid effusion. Orbits: Unremarkable as visualized. IMPRESSION: No evidence of acute intracranial pathology. Electronically signed by: Marisela Carreno MD 12/06/23 05:46 AM Head CTA 12/06/23 03:05 Exam(s): CTA HEAD With Contrast IV Amt: 118 ML OPTIRAY 320 EXAM: CT Angiography Head With Intravenous Contrast CLINICAL HISTORY: Reason for exam: cva?. TECHNIQUE: Axial computed tomographic angiography images of the head with intravenous contrast. CTDI is 36.48 mGy and DLP is 470.66 mGy-cm. Automated exposure control was utilized for the study. A dose lowering technique was utilized adhering to the principles of ALARA. MIP reconstructed images were created and reviewed. CONTRAST: Patient received 118 ML OPTIRAY 320 of IV contrast COMPARISON: No relevant prior studies available. FINDINGS: The dural venous sinuses are patent. Right internal carotid artery: No acute findings. Intracranial segment is patent with no significant stenosis. No aneurysm. Right anterior cerebral artery: Unremarkable. No occlusion or significant stenosis. No aneurysm. Right middle cerebral artery: Unremarkable. No occlusion or significant stenosis. No aneurysm. Right posterior cerebral artery: Unremarkable. No occlusion or significant stenosis. No aneurysm. Right vertebral artery: Unremarkable as visualized. Left internal carotid artery: No acute findings. Intracranial segment is patent with no significant stenosis. No aneurysm. Left anterior cerebral artery: Unremarkable. No occlusion or significant stenosis. No aneurysm. Left middle cerebral artery: Unremarkable. No occlusion or significant stenosis. No aneurysm. Left posterior cerebral artery: Unremarkable. No occlusion or significant stenosis. No aneurysm. Left vertebral artery: Unremarkable as visualized. Basilar artery: Unremarkable. No occlusion or significant stenosis. No aneurysm. IMPRESSION: Negative CT angiogram of the head. Electronically signed by: Marisela Carreno MD 12/06/23 04:11 AM Neck CTA 12/06/23 03:05 Exam(s): CTA NECK With Contrast IV Amt: 118 ML OPTIRAY 320 EXAM: CT Angiography Neck With Intravenous Contrast CLINICAL HISTORY: Reason for exam: cva?. TECHNIQUE: Routine carotid CT angiography protocol was performed with intravenous contrast. NASCET criteria using the distal ICAs for comparison were used for evaluation of stenoses. CTDI is 36.48 mGy and DLP is 470.66 mGy-cm. Automated exposure control was utilized for the study. A dose lowering technique was utilized adhering to the principles of ALARA. MIP reconstructed images were created and reviewed. CONTRAST: Patient received 118 ML OPTIRAY 320 of IV contrast COMPARISON: None. FINDINGS: VASCULATURE: Right common carotid artery: Unremarkable. No occlusion or significant stenosis. No dissection. Right internal carotid artery: Unremarkable. Extracranial segment is patent with no occlusion or significant stenosis. No dissection. Right external carotid artery: Unremarkable. No occlusion. Right vertebral artery: Unremarkable. No occlusion or significant stenosis. No dissection. Left common carotid artery: Unremarkable. No occlusion or significant stenosis. No dissection. Left internal carotid artery: Unremarkable. Extracranial segment is patent with no occlusion or significant stenosis. No dissection. Left external carotid artery: Unremarkable. No occlusion. Left vertebral artery: Unremarkable. No occlusion or significant stenosis. No dissection. NECK: Bones/joints: Unremarkable. No acute fracture. Soft tissues: Unremarkable. Lung apices: Clear. CAROTID STENOSIS REFERENCE USING NASCET CRITERIA: % ICA stenosis = (1 - narrowest ICA diameter/diameter of distal cervical ICA) x 100. Mild - <50% stenosis. Moderate - 50-69% stenosis. Severe - 70-94% stenosis. Near occlusion - 95-99% stenosis. Occluded - 100% stenosis. IMPRESSION: Negative CTA neck. Electronically signed by: Marisela Carreno MD 12/06/23 04:12 AM Cervical Spine MRI 12/06/23 15:41 Exam(s): MRI C SPINE IV Amt: 6.5cc gadavist EXAM: MR Cervical Spine With Intravenous Contrast CLINICAL HISTORY: Reason for exam: Stroke like symptoms R/O atlantoaxial arthritis. TECHNIQUE: Magnetic resonance images of the cervical spine with intravenous contrast in multiple planes. CONTRAST: Patient received 6.5cc gadavist of IV contrast COMPARISON: Prior CT angiogram of the neck from December 06, 2023. FINDINGS: Vertebrae: There are 7 cervical type vertebral bodies with a mild generalized curve to the right and normal cervical lordosis. There is normal vertebral body height and alignment. The bone marrow signal is normal. No acute fracture. Spinal cord: The cord is normal size, shape and signal characteristics. No abnormal enhancement. Soft tissues: The cervical flow voids are intact. DISCS/SPINAL CANAL/NEURAL FORAMINA: C2-C3: Unremarkable. No significant disc disease. No stenosis. C3-C4: Unremarkable. No significant disc disease. No stenosis. C4-C5: Unremarkable. No significant disc disease. No stenosis. C5-C6: Unremarkable. No significant disc disease. No stenosis. C6-C7: Unremarkable. No significant disc disease. No stenosis. C7-T1: Unremarkable. No significant disc disease. No stenosis. IMPRESSION: Negative MRI of the cervical spine. Electronically signed by: Marisela Carreno MD 12/07/23 00:48 AM Lumbar Spine MRI 12/06/23 16:05 Exam(s): MRI L SPINE W/WO Contrast IV Amt: 6.5cc gadavist EXAM: MR Lumbar Spine Without and With Intravenous Contrast CLINICAL HISTORY: Reason for exam: Stroke like symptoms. TECHNIQUE: Magnetic resonance images of the lumbar spine without and with intravenous contrast in multiple planes. CONTRAST: Patient received 6.5cc gadavist of IV contrast COMPARISON: No relevant prior studies available. FINDINGS: Vertebrae: There are 5 lumbar type vertebral bodies with a mild levoscoliosis and shallow lumbar lordosis. There is mild grade 1 anterolisthesis of L4 on L5 measuring 7 mm. Otherwise, there is normal vertebral body height and alignment. The bone marrow signal is heterogeneous with reactive endplate changes at L4-5. There are bilateral L4 pars defects. No acute fracture. Spinal cord: The conus is normal size, shape and signal characteristics, terminating at T12-L1. No abnormal enhancement. Soft tissues: Unremarkable. DISCS/SPINAL CANAL/NEURAL FORAMINA: L1-L2: The intervertebral disc is normal. L2-L3: The intervertebral disc is normal. L3-L4: The intervertebral disc is normal. L4-L5: Advanced disc degeneration with annular disc bulging asymmetric to the left causing a mild subarticular recess stenosis with disc extending to the neural foramina causing moderate bilateral stenosis with impingement of the L4 nerve or ganglia. L5-S1: Moderate disc degeneration with annular disc bulge asymmetric to the left causing a mild right and moderate left subarticular recess stenosis with mild impingement of the transiting left S1 nerve root. IMPRESSION: 1. Advanced disc degeneration at L4-5 and moderate disc degeneration and L5-S1 with annular disc bulging causing mild subarticular recess stenosis at L4-5 and a mild right and moderate left subarticular recess stenosis at L5-S1 with impingement of the transiting left S1 nerve root. 2. There is no spinal canal stenosis. 3. There is moderate bilateral L4-5 neural foraminal stenosis with impingement of the L4 nerve or ganglia. 4. No evidence of acute fracture, infection, tumor or arachnoiditis. Electronically signed by: Marisela Carreno MD 12/07/23 01:12 AM Thoracic Spine MRI 12/06/23 16:05 Exam(s): MRI T SPINE W/WO Contrast IV Amt: 6.5cc gadavist EXAM: MR Thoracic Spine Without and With Intravenous Contrast CLINICAL HISTORY: Reason for exam: Stroke like symptoms. TECHNIQUE: Magnetic resonance images of the thoracic spine without and with intravenous contrast in multiple planes. CONTRAST: Patient received 6.5cc gadavist of IV contrast COMPARISON: No relevant prior studies available. FINDINGS: Vertebrae: Unremarkable. No acute fracture. Discs/spinal canal/neural foramina: No acute findings. There is mild disc degeneration at T7-8 with 1.5 mm left paracentral disc protrusion flattening the ventral thecal sac.. No spinal canal stenosis. Spinal cord: Unremarkable. Normal signal. No abnormal enhancement. Soft tissues: Unremarkable. IMPRESSION: No evidence of acute thoracic spine pathology. Electronically signed by: Marisela Carreno MD 12/07/23 01:34 AM Lumbar Spine X-Ray 12/07/23 08:13 XR lumbar spine min 4V routine HISTORY: 48 years-old Female back pain acute low back pain without reported trauma COMPARISON: MRI 12/06/2023 TECHNIQUE: 5 views of the MR spine FINDINGS: Severe L4-L5 intervertebral disc space narrowing with grade 1 (5 mm) anterolisthesis redemonstrated along with chronic L4 pars defects. Moderate L4- L5 facet arthrosis. Mild L5-S1 intervertebral disc space narrowing and spondylotic spurring. IMPRESSION: 1. Chronic L4 pars defects with grade 1 anterolisthesis redemonstrated. 2. Severe L4-L5 intervertebral disc space narrowing with moderate spondylitic spurring and facet arthrosis redemonstrated. ACT 112: Negative or not required by law. The above report was generated using voice recognition software. It may contain grammatical, syntax or spelling errors. Electronically signed by: Myles Cotton M.D. 12/07/2023 11:29 AM Ordered Studies 12/05/23 17:51 CT head/brain wo con Stat 12/06/23 03:05 CT angio head w con Urgent CT angio neck with con Urgent MR brain wo/w con Urgent 12/06/23 15:41 MR cervical spine wo/w con Urgent 12/06/23 16:05 MR lumbar spine wo/w con Routine MR thoracic spine wo/w con Routine Hospital Course (1) Stroke-like symptoms: 48-year-old female with past medical history significant for rheumatoid arthritis of multiple sites without rheumatoid factor, recurrent iritis of right eye, migraine variant, history genital warts, history of recurrent diverticulitis for which patient is scheduled for surgery end of this month and she is taking MiraLAX daily in preparation for the surgery comes because of strokelike symptoms. Patient says since November 23 she is feeling pressure in the head. Since last couple of weeks she is she feeling foggy in her brain. Since last week she is feeling numbness and a tinglining in the both lower extremities more in the left lower extremity and also weakness in the left thumb. Because of ongoing symptoms she came to the ER today. She was also recently diagnosed with lumbar disc disease and is prescribed gabapentin as needed. Patient denies any blurred visions or double vision. No earache. No runny nose or sore throat. No cough. No fevers. Whenever she feels fogginess in her brain she has some difficulty swallowing which last about half hour and as fogginess resolves she can swallow okay. No nausea. No abdominal pain. Normal bowel and bladder movements. Denies any bloody stools. No rash. Initially today she was not able to ambulate much but in the ER currently she was able to ambulate okay. Hemodynamics are okay. Lumbar disc disease/spinal stenosis with neurogenic claudication Strokelike symptoms DD: Possible Complicated Migraine H/O Migraine Reports pressure in the head since November 23. Fogginess of brain since last 2 weeks. Numbness and weakness of lower extremity more in right leg and weakness of left thumb since last 1 week --MRI Brain:No evidence of acute intracranial pathology. --Head CTA:Negative CT angiogram of the head. --Neck CTA:Negative CTA neck. --LDL: 92 --A1C:5.8 --ECHO: Small right to left interatrial shunt with injection of agitated saline contrast consistent with presence of patent [place]. EF 55 to 60%. Left ventricular wall motion is normal. No significant valvular pathology. --MRI Lumbar Spine: Advanced disc degeneration at L4-5 and moderate disc degeneration and L5-S1 with annular disc bulging causing mild subarticular recess stenosis at L4-5 and a mild right and moderate left subarticular recess stenosis at L5-S1 with impingement of the transiting left S1 nerve root.. There is no spinal canal stenosis.. There is moderate bilateral L4-[address] enosis with impingement of the L4 nerve or ganglia.. No evidence of acute fracture, infection, tumor or arachnoiditis. -- Thoracic spine MRI:No evidence of acute thoracic spine pathology. -- Cervical spine MRI:Negative MRI of the cervical spine. -- Normal TSH, B12 -- Elevated DARIO on prior studies --SPEP/UPEP pending PT/OT/Speech evaluation Continue gabapentin 100 mg twice daily. Appreciate orthopedics input--needs follow-up as outpatient Needs outpatient EMG and follow-up with neurology as outpatient Add magnesium, B2 supplements on discharge for migraine prophylaxis Also advised to follow-up with rheumatology as outpatient given elevated DARIO in the past Advised to reach immediate medical attention if symptoms worsen Patient understands and agrees with the plan Dizziness Normal orthostatics Received gentle IV fluids Meclizine as needed Advised follow-up with ENT as outpatient Hypokalemia Replete and monitor Degenerative lumbar disease On gabapentin as needed Off note: Patient has not started her gabapentin yet H/O Recurrent Diverticulitis Chronic constipation Scheduled for elective surgery on Miralax DVT prophylaxis SCDs for now Encouraged to ambulate Code Status Full code. Disposition Home Total Time Total Time Spent Total Time Spent (In Minutes): 46 minutes Discharge Plan Discharge Items Patient Disposition: Home - Self-Care Reason For Visit: STROKE-LIKE SYMPTOMS Discharge Diagnosis: Lumbar spinal stenosis with neurogenic claudication Migraine Strokelike symptoms Dizziness Condition on Discharge: Fair Activity: Per Instructions section Exercise/Sports: Gradually increase as tolerated Non-emergency contact: Primary Care Provider, Surgeon, Specialist and Neurologist Call non-emergency contact if: you have any medication questions, your symptoms worsen, your pain is concerning for you and you have a fever Follow-up/Referrals: Kenisha Zepeda DO [Primary Care Provider] - (Date & Time 12/14/2023 11:00 AM Provider Kenisha Zepeda DO Department Family Practice [facility] ) Zena Cardoso MD [Physician] - (Date & Time 12/29/2023 1:00 PM Provider Zena Cardoso MD Department Neurology [facility] ) Diet: Heart Healthy Addtl Attending Provider Instructions: Follow-up with your primary care physician and neurologist as scheduled Follow-up with your orthopedic surgeon Dr. 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 Please call if you have any questions or problems. You can reach a [facility] hospitalist on duty at [facility] 24 hours a day by calling [phone] Risk Factors for Stroke: You can reduce your chances of stroke by working with your medical provider to adopt a healthy lifestyle. Some specific ways to lower your chance of stroke are: * If you are a smoker, now is the time to stop smoking cigarettes * If you are diabetic, improve the control of your blood sugars * Avoid excessive amounts of alcohol * Control high blood pressure * Lose weight if you are overweight * Be sure to lead an active lifestyle * Eat a healthy diet low in salt, cholesterol and fat You should know about other risk factors for stroke that you are unable to control. These include: * Age 55 years or older * Male gender * Certain racial groups: , or / * Family History of Stroke, Mini stroke or Heart Attack * Sickle Cell Disease Follow Up: It is important for you to keep your follow up appointments with your medical provider. Who to Call and When: Medical Emergencies: Call 911 immediately if you experience any of the following warning signs and symptoms of Stroke: * Sudden numbness or weakness of the face, arm or leg, especially on one side of the body * Sudden confusion, trouble speaking or understanding * Sudden trouble seeing in one or both eyes * Sudden trouble walking, dizziness, loss of balance or coordination * Sudden severe headache with no cause Do not delay calling 911 if you experience any warning signs or symptoms of a stroke. Delay in seeking medical attention may affect what treatments can be given to you. . Pending Studies at Discharge: Yes (SPEP/UPEP) Stand-Alone Forms: My [facility], Smoking Cessation Medications and DC Order Prescriptions: New meclizine 12.5 mg Tablet 12.5 mg PO TID PRN (Reason: dizziness) Qty: 30 0RF magnesium oxide 400 mg magnesium tablet 400 mg PO DAILY Qty: 30 0RF riboflavin (vitamin B2) 400 mg tablet 400 mg PO DAILY Qty: 30 0RF gabapentin 100 mg Capsule 100 mg PO BID Qty: 60 0RF Continued polyethylene glycol 3350 [Miralax] 17 gram Powder In Packet 17 g PO DAILY escitalopram oxalate 10 mg tablet 10 mg PO DAILY Discontinued gabapentin 100 mg capsule 100 mg PO TID PRN (Reason: Pain) Discharge Orders: Discharge Order (Routine); Ordered 12/09/23 Ordered By: Lj Lopes/Other Patient Handouts: Meclizine Oral Tablet, Gabapentin Oral Capsule, Symptoms of Stroke, What Is Peripheral Neuropathy, Treating Peripheral Neuropathy, Anatomy of a Normal Spine, Low Back Leg Pain Causes, Cervical Disk Problems Admission Data Admit Date/Time: 12/06/23 01:41 Attending Provider: Lj Breaux Admit Provider: Tavo Cox Primary Care Provider: Kenisha Zepeda Other Providers: Tavo Cox; Zena Lemon; Dudley Johnson; Zena Cardoso; Eder Forbes; Erick Landrum; Gavino Crawley; Josué Haro; Nikki Solis; Anders Bull; Nathanael Plata; Stephon Vásquez; Momo Rdz; Rosita Zimmerman; Samara Wynn; Josué Taveras; Brandon Abebe
[2023-12-09 13:22] VITALS: BP 119/77; PULSE 76
[2023-12-11 16:07] LABS: Albumin 4.3 g/dL (3.8-4.8); Alpha 1 Globulin 0.3 g/dL (0.2-0.3); Alpha 2 Globulin 0.7 g/dL (0.5-0.9); Beta-1-Globulin 0.4 g/dL (0.4-0.6); Beta-2-Globulin 0.3 g/dL (0.2-0.5); Gamma Globulin 0.9 g/dL (0.8-1.7); Monoclonal Protein Band 1 DNR g/dL (NONE DETECTED); Monoclonal Protein Band 2 DNR g/dL (NONE DETECTED); Monoclonal Protein Band 3 DNR g/dL (NONE DETECTED); Total Protein 6.9 g/dL (6.1-8.1)
[2023-12-13 08:28] LABS: Creatinine Ur 12 mg/dL (20-275); Protein, Urine Random <4 mg/dL (5-24); Ur Albumin % 100 %; Ur Alpha-1-globulin % 0 %; Ur Alpha-2-globulin % 0 %; Ur Beta Globulin % 0 %; Ur Gamma Globulin % 0 %; Ur Protein/Creat Ratio mg/g NOTE mg/g creat (24-184); Urine Abnormal Protein Band 1 DNR mg/dL (NONE DETECTED); Urine Abnormal Protein Band 2 DNR mg/dL (NONE DETECTED); Urine Protein/Creatinine Ratio NOTE (0.024-0.184)
== END 2023-12-09 13:29 | disposition home or self-care (01) | DRG 552 ==
LOC: ED 15:51 → EDINP 12-06 01:41 → 2E 12-06 03:06